=== PATIENT | female | born 1975 | race Caucasian/White ===

== ENCOUNTER → 2016-12-31 | Outpatient (CLI) | payer BC ==
--- NOTE | 2016-12-31 12:15 | US ---
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 Alcoholic cirrhosis TECHNIQUE: Multiple sonographic images of the abdomen were obtained. FINDINGS: Liver Length: 17.5 cm Gallbladder Wall: 0.2 cm CBD: 0.4 cm Spleen: 9.2 cm Right Kidney: 10.5 x 5.7 x 5.5 cm Left Kidney: 10.8 x 5.6 x 4.6 cm Pancreas: obscured by overlying midline bowel gas Liver: Increased in size now at the upper limits of normal. There is coarsened echotexture and far fi eld attenuation. This secondarily limits assessment for focal lesion. Gallbladder: Upper limits of normal in size. There there are some dependent low level echoes suggest ing sludge. No abnormal gallbladder wall thickening, pericholecystic fluid, or shadowing calculi. Evidence for sonographic Crespo's sign: no CBD: visualized portions within normal limits, limited by overlying bowel gas Spleen: visualized portions within normal limits, limited by overlying bowel gas Right Kidney: No hydronephrosis Left Kidney: No hydronephrosis Upper IVC: Not well seen. Abd Aorta: visualized portions wnl, limited by overlying midline bowel gas IMPRESSION: 1. Hepatomegaly new from 07/11/2015. The liver is coarse in echotexture and attenuating. Correlate fo r underlying nonspecific hepatocellular disease. 2. Some gallbladder sludge. Gallbladder is also borderline hydropic probably relating to fasting stat e. Clinically correlate. No findings of cholelithiasis or ancillary findings of acute cholecystitis. 3. No abdominal ascites seen.
== END | disposition home or self-care (01) ==
LOC: RADUSWWP 09:30
PROVIDERS: ATTEND Family Medicine
DX: R16.0 Hepatomegaly, not elsewhere classified (principal); K82.8 Other specified diseases of gallbladder
CPT/HCPCS: 76700

== ENCOUNTER 2017-02-05 04:07 | Emergency (ER) | payer BC ==
[2017-02-05 04:12] VITALS: BP 126/85; PULSE 99; RESP 18; TEMP 98.3
[2017-02-05] MEDS ORDERED: PENICILLIN VK 500MG STARTER 4 TAB BTL PO STA (04:42)
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
== END 2017-02-05 04:49 | disposition short-term general hospital (02) ==
LOC: EC 04:07
DX: S01.511A Laceration without foreign body of lip, initial encounter (principal); F17.200 Nicotine dependence, unspecified, uncomplicated; W22.8XXA Striking against or struck by other objects, initial encounter; Y92.89 Other specified places as the place of occurrence of the external cause
CPT/HCPCS: 12013; 99284

== ENCOUNTER 2018-06-07 00:55 | Emergency (ER) | payer BC ==
[2018-06-07] MEDS ORDERED: SODIUM CHLORIDE 0.9% 1,000 ML with MVI, ADULT NO.4 WITH VIT K 10 ML, THIAMINE 100 MG, F... IV ONE ×4 (01:31)
[2018-06-07] MEDS ORDERED: LORazepam 2 MG/ML INJ IV STA (01:31)
[2018-06-07] MEDS ORDERED: SODIUM CHLORIDE 0.9% 1,000 ML IV ONE (01:31)
[2018-06-07 01:49] LABS: Basophils # (A) 0.1 k/uL (0-0.2); Basophils % (A) 1 %; Eosinophils # (A) 0.3 k/uL (0-0.7); Eosinophils % (A) 5 %; HCT 43.7 % (34.0-46.0); HGB 14.3 gm/dL (11.4-16.0); Lymphocytes # (A) 2.1 k/uL (1.0-4.8); Lymphocytes % (A) 36 %; MCH 31.2 pg (25.0-35.0); MCHC 32.9 g/dL (31.0-37.0); MCV 95.1 fL (80.0-100.0); Monocytes # (A) 0.4 k/uL (0-1.0); Monocytes % (A) 6 %; Neutrophils # (A) 2.9 k/uL (1.3-7.7); Neutrophils % (A) 49 %; Platelet Count 265 k/uL (150-450); RBC 4.59 m/uL (3.80-5.40); WBC 5.9 k/uL (3.8-10.6)
[2018-06-07 01:54] LABS: INR 1.1 (<1.2); Prothrombin Time 10.3 sec (9.0-12.0)
[2018-06-07 01:56] LABS: ALT 91 U/L (9-52); AST 93 U/L (14-36); Albumin 4.1 g/dL (3.5-5.0); Alkaline Phosphatase 66 U/L (38-126); Amylase 59 U/L (30-110); Anion Gap 11 mmol/L; Blood Urea Nitrogen 5 mg/dL (7-17); Calcium 9.2 mg/dL (8.4-10.2); Carbon Dioxide 27 mmol/L (22-30); Chloride 106 mmol/L (98-107); Glucose 113 mg/dL (74-99); Lipase 257 U/L (23-300); Phosphorus 4.1 mg/dL (2.5-4.5); Potassium 3.4 mmol/L (3.5-5.1); Sodium 144 mmol/L (137-145); Total Bilirubin 0.4 mg/dL (0.2-1.3); Total Protein 7.5 g/dL (6.3-8.2)
[2018-06-07] MEDS ORDERED: NICOTINE 21MG/24HR PATCH TRANSDERM STA (02:02)
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
[2018-06-07] MEDS ORDERED: ZIPRASIDONE 20 MG VIAL IM STA (02:17)
[2018-06-07 03:04] LABS: Appearance,Urine Clear (Clear); Bilirubin,Urine Negative (Negative); Blood,Urine Large (Negative); Color,Urine Colorless; Glucose,Urine (UA) Negative (Negative); Ketones,Urine Negative (Negative); Leukocyte Esterase,Urine Negative (Negative); Mucus,Urine Rare /hpf; Nitrite,Urine Negative (Negative); PH, Urine 6.5 (5.0-8.0); Protein,Urine Negative (Negative); Specific Gravity,Urine 1.002 (1.001-1.035); Squamous Epithelial Cell,Urine <1 /hpf (0-4); Urobilinogen,Urine <2.0 mg/dL (<2.0)
[2018-06-07 03:10] LABS: Amphetamine Screen,Urine Not Detected (NotDetected); Barbiturate Screen,Urine Not Detected (NotDetected); Benzodiazepines Screen,Urine Not Detected (NotDetected); Cocaine Screen,Urine Not Detected (NotDetected); Methadone Screen, Urine Not Detected (NotDetected); Opiate Screen,Urine Not Detected (NotDetected); Oxycodone Screen, Urine Not Detected (NotDetected); Phencyclidine Screen,Urine Not Detected (NotDetected); Tricyclic Antidepressant,Urine Not Detected (NotDetected); Urn Cannabinoid Scrn Not Detected (NotDetected)
[2018-06-07 07:01] VITALS: TEMP 97.9
[2018-06-07 11:50] VITALS: BP 169/100; PULSE 97; RESP 18
== END 2018-06-07 11:51 | disposition home or self-care (01) ==
LOC: EC 00:55
DX: F43.21 Adjustment disorder with depressed mood (principal); F10.129 Alcohol abuse with intoxication, unspecified; F41.9 Anxiety disorder, unspecified; F40.10 Social phobia, unspecified; F17.200 Nicotine dependence, unspecified, uncomplicated; Z53.8 Procedure and treatment not carried out for other reasons
CPT/HCPCS: 82075; 36415; 80053; 82150; 83690; 83735; 84100; 85025; 85610; 81001; 81025; 80306; 99285; 96374; 96361; 96372; S4990; J2060; J3486

== ENCOUNTER 2018-07-12 22:11 | Observation (INO) | payer BC ==
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
[2018-07-13] MEDS ORDERED: NICOTINE 14MG/24HR PATCH TRANSDERM STA (00:27)
[2018-07-13] MEDS ORDERED: LORazepam 1 MG TAB PO STA (00:27)
[2018-07-13] MEDS ORDERED: NALOXONE 0.4 MG/ML 1 ML VIAL IV PRN (00:28)
[2018-07-13] MEDS ORDERED: ZIPRASIDONE 20 MG VIAL IM STA (02:55)
[2018-07-13 03:41] LABS: Amphetamine Screen,Urine Not Detected (NotDetected); Barbiturate Screen,Urine Not Detected (NotDetected); Benzodiazepines Screen,Urine Not Detected (NotDetected); Cocaine Screen,Urine Not Detected (NotDetected); Methadone Screen, Urine Not Detected (NotDetected); Opiate Screen,Urine Not Detected (NotDetected); Oxycodone Screen, Urine Not Detected (NotDetected); Phencyclidine Screen,Urine Not Detected (NotDetected); Tricyclic Antidepressant,Urine Not Detected (NotDetected); Urn Cannabinoid Scrn Not Detected (NotDetected)
[2018-07-13] MEDS ORDERED: LORazepam 2 MG/ML INJ IV PRN ×3 (04:05)
[2018-07-13] MEDS ORDERED: THIAMINE 100 MG/ML 2 ML VIAL IM STA (04:05)
[2018-07-13 12:24] VITALS: BMI 33.5
[2018-07-13] MEDS ORDERED: buPROPion XL 150 MG TAB.ER.24H PO SCH (15:30)
[2018-07-13] MEDS ORDERED: NALTREXONE HCL 50 MG TAB PO SCH (15:30)
[2018-07-13] MEDS ORDERED: OLANZapine 5 MG TAB PO SCH (15:30)
[2018-07-13 15:51] VITALS: BP 163/97; PULSE 87; RESP 16; TEMP 97.9
[2018-07-13] MEDS ORDERED: THIAMINE 100 MG TAB PO SCH (17:00)
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
== END 2018-07-13 20:03 | disposition home or self-care (01) ==
LOC: EC 22:11 → 4SSUR 07-13 00:24
PROVIDERS: ADMIT Hospitalist; ATTEND Hospitalist
DX: G93.41 Metabolic encephalopathy (principal); F10.129 Alcohol abuse with intoxication, unspecified; F41.9 Anxiety disorder, unspecified; F32.9 Major depressive disorder, single episode, unspecified; Z68.33 Body mass index [BMI] 33.0-33.9, adult; E66.9 Obesity, unspecified; F17.210 Nicotine dependence, cigarettes, uncomplicated; Z82.49 Family history of ischemic heart disease and other diseases of the circulatory system; Z79.899 Other long term (current) drug therapy; Y90.8 Blood alcohol level of 240 mg/100 ml or more
CPT/HCPCS: 99285; 96372 ×2; 82075; 80306; G0378; S4990; J3486

== ENCOUNTER → 2018-10-05 | Outpatient (CLI) | payer BC ==
--- NOTE | 2018-10-05 11:56 | US ---
EXAMINATION TYPE: US liver DATE OF EXAM: 10/05/2018 COMPARISON: CT from 2012. Most recent ultrasound December 31, 2016 CLINICAL HISTORY: F10.10 alcohol abuse. EXAM MEASUREMENTS: Liver Length: 12.6 cm Gallbladder Wall: 0.2 cm CBD: 0.4 cm Right Kidney: 10.3 x 4.9 x 5.2 cm Pancreas: visualized portions wnl Liver: wnl Gallbladder: No stones seen Evidence for sonographic Crespo's sign: No CBD: wnl Right Kidney: No hydronephrosis or masses seen IMPRESSION: Liver is more homogeneous on current study versus prior ultrasound study without evidence of suspicious intrahepatic mass or intrahepatic ductal dilatation. Correlate clinically and with arturo er lab values as I suspect interval improvement.
== END | disposition home or self-care (01) ==
LOC: RADUSWWP 09:25
PROVIDERS: ATTEND Family Medicine
DX: F10.10 Alcohol abuse, uncomplicated (principal)
CPT/HCPCS: 76705

== ENCOUNTER 2018-12-28 18:01 | Emergency (ER) | payer BC ==
[2018-12-28 18:20] VITALS: TEMP 97.6
[2018-12-28] MEDS ORDERED: SODIUM CHLORIDE 0.9% 1,000 ML IV STA (18:46)
[2018-12-28] MEDS ORDERED: LORazepam 2 MG/ML INJ IV STA (18:46)
[2018-12-28] MEDS ORDERED: PANTOPRAZOLE 40 MG/10 ML VIAL IVP STA (18:46)
[2018-12-28] MEDS ORDERED: ONDANSETRON 4 MG/2 ML VIAL IVP STA (18:46)
--- NOTE | 2018-12-28 18:49 | ED ---
Alcohol HPI - General Chief Complaint: Alcohol Stated Complaint: ETOH Time Seen by Provider: 12/28/18 18:27 Source: EMS, RN notes reviewed, old records reviewed Mode of arrival: EMS Limitations: no limitations - History of Present Illness Initial Comments: Patient is a 43-year-old female who presents MRSA department today with multiple complaints. Patient apparently recently was discharged from sober rehab facility August. After finding out that her mother has breast cancer on Thursday she used started to drink heavily again. She complains today of right sided abdominal pain and left lower abdominal pain. She is also concerned that she may have bacterial vaginosis after her has been traveling for work. She is concerned he may be unfaithful to her. Patient presents the emergency department quite anxious. She has drank a significant amount today. - Related Data Home Medications Medication Instructions Recorded Confirmed OLANZapine [ZyPREXA] 5 mg PO DAILY 07/12/18 12/28/18 buPROPion XL [Wellbutrin XL] 150 mg PO DAILY 07/12/18 12/28/18 Multivitamins, Thera [Multivitamin 1 tab PO DAILY 12/28/18 12/28/18 (formulary)] Thiamine [Vitamin B-1] 50 mg PO DAILY 12/28/18 12/28/18 Previous Rx's Medication Instructions Recorded metroNIDAZOLE [Flagyl] 500 mg PO TID #21 tab 12/28/18 Allergies Allergy/AdvReac Type Severity Reaction Status Date / Time No Known Allergies Allergy Verified 12/28/18 18:15 Review of Systems ROS Statement: Those systems with pertinent positive or pertinent negative responses have been documented in the HPI. ROS Other: All systems not noted in ROS Statement are negative. Past Medical History Past Medical History: Heart Failure, Fibromyalgia, Rheumatoid Arthritis (RA) Additional Past Medical History / Comment(s): endometriosis History of Any Multi-Drug Resistant Organisms: None Reported Past Surgical History: Section, Hernia Repair, Tubal Ligation Additional Past Surgical History / Comment(s): laproscopy Past Psychological History: Anxiety, Depression Smoking Status: Current every day smoker Past Alcohol Use History: Abuse, Daily Past Drug Use History: None Reported - Past Family History Mother Family Medical History: Hypertension Father Family Medical History: COPD General Exam - General Exam Comments Initial Comments: This is a 43-year-old female. Alert and oriented. Patient appears intoxicated. Limitations: no limitations General appearance: alert, in no apparent distress Head exam: Present: atraumatic, normocephalic, normal inspection Eye exam: Present: normal appearance, PERRL, EOMI. Absent: scleral icterus, conjunctival injection, periorbital swelling ENT exam: Present: normal exam, mucous membranes moist Neck exam: Present: normal inspection. Absent: tenderness, meningismus, lymphadenopathy Respiratory exam: Present: normal lung sounds bilaterally Cardiovascular Exam: Present: regular rate, normal rhythm, normal heart sounds. Absent: systolic murmur, diastolic murmur, rubs, gallop, clicks GI/Abdominal exam: Present: soft, normal bowel sounds. Absent: distended, tenderness, guarding, rebound, rigid Extremities exam: Present: normal inspection, full ROM, normal capillary refill. Absent: tenderness, pedal edema, joint swelling, calf tenderness Back exam: Present: normal inspection Neurological exam: Present: alert, oriented X3, CN II-XII intact Psychiatric exam: Present: normal affect, normal mood Skin exam: Present: warm, dry, intact, normal color. Absent: rash Course Vital Signs 12/28/18 12/28/18 18:14 22:24 Temperature 97.6 F Pulse Rate 82 78 Respiratory 18 16 Rate Blood Pressure 122/77 98/57 O2 Sat by Pulse 93 L 95 Oximetry Medical Decision Making - Lab Data Result diagrams: 12/28/18 19:21 12/28/18 19:21 Lab Results 12/28/18 12/28/18 12/28/18 Range/Units 19:21 19:21 19:21 WBC 9.1 (3.8-10.6) k/uL RBC 4.97 (3.80-5.40) m/uL Hgb 15.1 (11.4-16.0) gm/dL Hct 45.0 (34.0-46.0) % MCV 90.4 (80.0-100.0) fL MCH 30.4 (25.0-35.0) pg MCHC 33.7 (31.0-37.0) g/dL RDW 15.1 (11.5-15.5) % Plt Count 240 (150-450) k/uL Neutrophils % 61 % Lymphocytes % 31 % Monocytes % 3 % Eosinophils % 2 % Basophils % 1 % Neutrophils # 5.5 (1.3-7.7) k/uL Lymphocytes # 2.8 (1.0-4.8) k/uL Monocytes # 0.3 (0-1.0) k/uL Eosinophils # 0.2 (0-0.7) k/uL Basophils # 0.1 (0-0.2) k/uL PT 9.6 (9.0-12.0) sec INR 0.9 (<1.2) APTT 24.2 (22.0-30.0) sec Sodium 148 H (137-145) mmol/L Potassium 4.1 (3.5-5.1) mmol/L Chloride 113 H (98-107) mmol/L Carbon Dioxide 23 (22-30) mmol/L Anion Gap 12 mmol/L BUN 12 (7-17) mg/dL Creatinine 0.76 (0.52-1.04) mg/dL Est GFR (CKD-EPI)AfAm >90 (>60 ml/min/1.73 sqM) Est GFR (CKD-EPI)NonAf >90 (>60 ml/min/1.73 sqM) Glucose 98 (74-99) mg/dL Calcium 9.7 (8.4-10.2) mg/dL Total Bilirubin 0.4 (0.2-1.3) mg/dL AST 26 (14-36) U/L ALT 36 (9-52) U/L Alkaline Phosphatase 68 (38-126) U/L Total Protein 8.1 (6.3-8.2) g/dL Albumin 4.5 (3.5-5.0) g/dL Amylase 62 (30-110) U/L Lipase 102 (23-300) U/L Serum Alcohol 230 H* mg/dL Disposition Clinical Impression: Alcohol intoxication, Concern about STD in female without diagnosis, Abdominal pain Disposition: HOME SELF-CARE Condition: Good Instructions (If sedation given, give patient instructions): Bacterial Vaginosis (ED), Alcohol Intoxication (ED) Additional Instructions: Patient has a follow-up with primary care doctor. Return to emergency department if any alarming signs or symptoms occur. Prescriptions: metroNIDAZOLE [Flagyl] 500 mg PO TID #21 tab Is patient prescribed a controlled substance at d/c from ED?: No Referrals: Fer Lubin MD [Primary Care Provider] - 1-2 days Keily Up MD [STAFF PHYSICIAN] - 1-2 days Time of Disposition: 22:29
[2018-12-28 19:38] LABS: Basophils # (A) 0.1 k/uL (0-0.2); Basophils % (A) 1 %; Eosinophils # (A) 0.2 k/uL (0-0.7); Eosinophils % (A) 2 %; HGB 15.1 gm/dL (11.4-16.0); Lymphocytes # (A) 2.8 k/uL (1.0-4.8); Lymphocytes % (A) 31 %; MCH 30.4 pg (25.0-35.0); MCHC 33.7 g/dL (31.0-37.0); MCV 90.4 fL (80.0-100.0); Mean Platelet Volume 7.9; Monocytes # (A) 0.3 k/uL (0-1.0); Monocytes % (A) 3 %; Neutrophils # (A) 5.5 k/uL (1.3-7.7); Neutrophils % (A) 61 %; Platelet Count 240 k/uL (150-450); RBC 4.97 m/uL (3.80-5.40); RDW 15.1 % (11.5-15.5); WBC 9.1 k/uL (3.8-10.6)
[2018-12-28 19:46] LABS: INR 0.9 (<1.2); Partial Thromboplastin Time 24.2 sec (22.0-30.0); Prothrombin Time 9.6 sec (9.0-12.0)
[2018-12-28 19:47] LABS: ALT 36 U/L (9-52); AST 26 U/L (14-36); Albumin 4.5 g/dL (3.5-5.0); Alkaline Phosphatase 68 U/L (38-126); Amylase 62 U/L (30-110); Anion Gap 12 mmol/L; Blood Urea Nitrogen 12 mg/dL (7-17); Calcium 9.7 mg/dL (8.4-10.2); Carbon Dioxide 23 mmol/L (22-30); Chloride 113 mmol/L (98-107); Glucose 98 mg/dL (74-99); Lipase 102 U/L (23-300); Potassium 4.1 mmol/L (3.5-5.1); Sodium 148 mmol/L (137-145); Total Bilirubin 0.4 mg/dL (0.2-1.3); Total Protein 8.1 g/dL (6.3-8.2)
[2018-12-28] MEDS ORDERED: NICOTINE 21MG/24HR PATCH TRANSDERM STA (19:53)
[2018-12-28 19:57] LABS: Alcohol 230 mg/dL
--- NOTE | 2018-12-28 20:42 | XR ---
EXAMINATION: XR chest 2V DATE AND TIME: 12/28/2018 8:03 PM CLINICAL INDICATION: PHH; abdominal pain TECHNIQUE: Departmental protocol COMPARISON: None FINDINGS: The lungs are clear. The pleural spaces are negative. The cardiac silhouette is borderline enlarged; remainder of the mediastinal silhouette is unremarkabl e. The skeletal structures are negative for acute findings. Visualized soft tissues are unremarkable. IMPRESSION: NO ACUTE PROCESS.
--- NOTE | 2018-12-28 20:46 | XR ---
EXAMINATION TYPE: XR KUB 2 views DATE OF EXAM: 12/28/2018 COMPARISON: NONE HISTORY: Abdominal pain for 6 weeks TECHNIQUE: Upright views FINDINGS: No pneumoperitoneum or pneumatosis. The bowel gas pattern is normal. No acute skeletal or soft tissue findings. IMPRESSION: NEGATIVE EXAMINATION.
[2018-12-28] MEDS ORDERED: cefTRIAXone 250 MG VIAL IM STA (22:06)
[2018-12-28] MEDS ORDERED: AZITHROMYCIN 500 MG TAB PO STA (22:06)
[2018-12-28 22:25] VITALS: BP 98/57; PULSE 78; RESP 16
== END 2018-12-28 22:58 | disposition home or self-care (01) ==
LOC: EC 18:01
DX: F10.129 Alcohol abuse with intoxication, unspecified (principal); R10.32 Left lower quadrant pain; Z71.1 Person with feared health complaint in whom no diagnosis is made; F32.9 Major depressive disorder, single episode, unspecified; F41.9 Anxiety disorder, unspecified; F17.200 Nicotine dependence, unspecified, uncomplicated; Z79.899 Other long term (current) drug therapy
CPT/HCPCS: 36415; 80053; 82150; 83690; 85025; 85610; 85730; 80320; 71046; 74018; 99284; 96374; 96375 ×2; 96361; 96372; S4990; J2060; J2405; J0696; C9113

== ENCOUNTER 2024-08-26 13:49 | Inpatient (IN) | payer BC, OTHER ==
--- NOTE | 2024-08-26 14:08 | ED ---
General Adult HPI - General Source: patient, RN notes reviewed, old records reviewed Limitations: no limitations <Messi Gama - Last Filed: 08/26/24 15:06> <Serg Diaz - Last Filed: 08/26/24 16:40> - General Stated complaint: Cough Time Seen by Provider: 08/26/24 13:52 - History of Present Illness Initial comments: Patient is a 49-year-old female present to the emergency department with cough and difficulty breathing. Symptoms have been present for around a month. Patient is currently at rehab for alcohol use and has been there around 10 days. Patient states she has noticed some wheezing. Patient is a smoker. Patient has no known history of lung disease. Patient states cough is dry. No fever. (Messi Gama) - Related Data Home Medications Medication Instructions Recorded Confirmed OLANZapine [ZyPREXA] 5 mg PO DAILY 07/12/18 12/28/18 buPROPion XL [Wellbutrin XL] 150 mg PO DAILY 07/12/18 12/28/18 Multivitamins, Thera [Multivitamin 1 tab PO DAILY 12/28/18 12/28/18 (formulary)] Thiamine [Vitamin B-1] 50 mg PO DAILY 12/28/18 12/28/18 Previous Rx's Medication Instructions Recorded metroNIDAZOLE [Flagyl] 500 mg PO TID #21 tab 12/28/18 Allergies Allergy/AdvReac Type Severity Reaction Status Date / Time latex Allergy Rash/Hives Verified 08/26/24 14:11 Review of Systems ROS Other: All systems not noted in ROS Statement are negative. Constitutional: Denies: fever Eyes: Denies: eye pain ENT: Denies: ear pain Respiratory: Reports: as per HPI, cough, dyspnea Cardiovascular: Reports: chest pain (Patient has some discomfort of her chest that she associates with the cough) Gastrointestinal: Denies: abdominal pain Musculoskeletal: Denies: back pain Neurological: Denies: headache <Messi Gama - Last Filed: 08/26/24 15:06> ROS Other: All systems not noted in ROS Statement are negative. <Serg Diaz - Last Filed: 08/26/24 16:40> ROS Statement: Those systems with pertinent positive or pertinent negative responses have been documented in the HPI. Past Medical History Past Medical History: Heart Failure, Fibromyalgia, Rheumatoid Arthritis (RA) Additional Past Medical History / Comment(s): endometriosis History of Any Multi-Drug Resistant Organisms: None Reported Past Surgical History: Section, Hernia Repair, Tubal Ligation Additional Past Surgical History / Comment(s): laproscopy Past Psychological History: Anxiety, Depression Past Alcohol Use History: Abuse, Daily Past Drug Use History: None Reported - Past Family History Mother Family Medical History: Hypertension Father Family Medical History: COPD <Messi Gama Last Filed: 08/26/24 15:06> General Exam Limitations: no limitations General appearance: alert, in no apparent distress Head exam: Present: normocephalic Eye exam: Present: normal appearance Neck exam: Present: normal inspection Respiratory exam: Present: wheezes (Mild expiratory wheeze) Cardiovascular Exam: Present: regular rate, normal rhythm GI/Abdominal exam: Present: soft. Absent: tenderness Extremities exam: Present: normal inspection. Absent: pedal edema, calf tenderness Neurological exam: Present: alert Psychiatric exam: Present: normal affect, normal mood Skin exam: Present: normal color <Messi Gama Last Filed: 08/26/24 15:06> Course Vital Signs 08/26/24 08/26/24 08/26/24 14:05 16:17 16:25 Temperature 98.8 F Pulse Rate 70 72 75 Respiratory 20 18 18 Rate Blood Pressure 141/91 O2 Sat by Pulse 98 Oximetry EKG Findings - EKG Results: EKG: interpreted by ERMD, sinus rhythm, normal axis, normal QRS, normal ST/T <Messi Gama - Last Filed: 08/26/24 15:06> Medical Decision Making - Lab Data Result diagrams: 08/26/24 14:15 <Messi Gama - Last Filed: 08/26/24 15:06> - Lab Data Result diagrams: 08/26/24 14:15 08/26/24 14:15 <Serg Diaz - Last Filed: 08/26/24 16:40> - Medical Decision Making Was pt. sent in by a medical professional or institution (, PA, [employer]ER [employer]OP SUPERVISOR, urgent care, hospital, or half-way...) When possible be specific @ -Patient was sent from [facility] Did you speak to anyone other than the patient for history (EMS, parent, family, police, friend...)? What history was obtained from this source @ -[No] Did you review nursing and triage notes (agree or disagree)? Why? @ -[I reviewed and agree with nursing and triage notes] Were old charts reviewed (outside hosp., previous admission, EMS record, old EKG, old radiological studies, urgent care reports/EKG's, half-way records)? Report findings @ -Chart reviewed from [facility]. Also reviewed old x-ray that does not appear similar to current x-ray Differential Diagnosis (chest pain, altered mental status, abdominal pain women, abdominal pain men, vaginal bleeding, weakness, fever, dyspnea, syncope, headache, dizziness, GI bleed, back pain, seizure, CVA, palpatations, mental he alth, musculoskeletal)? @ -Differential Dyspnea: Coronary syndrome, arrhythmia, tamponade, asthma, COPD, pulmonary embolism, pneumonia, pneumothorax, pulmonary effusion, anaphylaxis, diabetic ketoacidosis, flailed chest, pulmonary contusion, diaphragmatic rupture, anemia, neuromuscular, this is not meant to be an all-inclusive list. EKG interpreted by me (3pts min.). @ -[As above] X-rays interpreted by me (1pt min.). @ -Chest x-ray shows opacity left suprahilar region. Also diffuse nodular densities CT interpreted by me (1pt min.). @ -[None done] U/S interpreted by me (1pt. min.). @ -[None done] What testing was considered but not performed or refused? (CT, X-rays, U/S, labs)? Why? @ -[None] What meds were considered but not given or refused? Why? @ -[None] Did you discuss the management of the patient with other professionals (professionals i.e. , PA, [employer] SUPERVISOR, lab, RT, psych nurse, social secretary, criminal defense lawyer, teacher, security patrol officer, disease case manager)? Give summary @ -[No] Was smoking cessation discussed for >3mins.? @ -[No] Was critical care preformed (if so, how long)? @ -[No] Were there social determinants of health that impacted care today? How? (Homelessness, low income, unemployed, alcoholism, drug addiction, transportation, low edu. Level, literacy, decrease access to med. care, [facility], rehab)? @ -[No] Was there de-escalation of care discussed even if they declined (Discuss DNR or withdrawal of care, Hospice)? DNR status @ -[No] What co-morbidities impacted this encounter? (DM, HTN, Smoking, COPD, CAD, Cancer, CVA, ARF, Chemo, Hep., AIDS, mental health diagnosis, sleep apnea, morbid obesity)? @ -[None] Was patient admitted / discharged? Hospital course, mention meds given and route, prescriptions, significant lab abnormalities, going to OR and other pertinent info. @ -Patient presents with cough and shortness of breath for several weeks. Patient has some chest discomfort as well. Chest x-ray shows nodular changes and left suprahilar opacity. Case endorsed to Dr. Diaz for final disposition (Messi Gama) Patient admitted with consults to both pulmonology and oncology, multifocal nodular densities throughout both lungs as well as consolidated pneumonia. Patient started on antibiotics admitted to Dr. Celaya who is aware. (Serg Diaz) - Lab Data Lab Results 08/26/24 08/26/24 08/26/24 Range/Units 14:15 14:15 14:15 WBC 7.2 (3.8-10.6) k/uL RBC 4.06 (3.80-5.40) m/uL Hgb 12.7 (11.4-16.0) gm/dL Hct 38.2 (34.0-46.0) % MCV 94.0 (80.0-100.0) fL MCH 31.4 (25.0-35.0) pg MCHC 33.4 (31.0-37.0) g/dL RDW 14.0 (11.5-15.5) % Plt Count 198 (150-450) k/uL MPV 8.3 Neutrophils % 51 % Lymphocytes % 35 % Monocytes % 8 % Eosinophils % 3 % Basophils % 1 % Neutrophils # 3.7 (1.3-7.7) k/uL Lymphocytes # 2.5 (1.0-4.8) k/uL Monocytes # 0.6 (0-1.0) k/uL Eosinophils # 0.2 (0-0.7) k/uL Basophils # 0.1 (0-0.2) k/uL PT 9.8 L (10.0-12.5) sec INR 0.9 (<1.2) APTT 24.9 (22.0-30.0) sec D-Dimer 3.17 H (<0.60) mg/L FEU Sodium 139 (137-145) mmol/L Potassium 4.6 (3.5-5.1) mmol/L Chloride 107 (98-107) mmol/L Carbon Dioxide 23 (22-30) mmol/L Anion Gap 9 mmol/L BUN 12 (7-17) mg/dL Creatinine 0.74 (0.52-1.04) mg/dL Est GFR (CKD-EPI)AfAm >90 (>60 ml/min/1.73 sqM) Est GFR (CKD-EPI)NonAf >90 (>60 ml/min/1.73 sqM) Glucose 94 (74-99) mg/dL Plasma Lactic Acid Mauricio (0.7-2.0) mmol/L Calcium 9.2 (8.4-10.2) mg/dL Magnesium 2.1 (1.6-2.3) mg/dL Total Bilirubin 0.6 (0.2-1.3) mg/dL AST 24 (14-36) U/L ALT 19 (4-34) U/L Alkaline Phosphatase 45 (38-126) U/L Troponin I (0.000-0.034) ng/mL Total Protein 7.4 (6.3-8.2) g/dL Albumin 4.2 (3.5-5.0) g/dL Influenza Type A (PCR) (Not Detectd) Influenza Type B (PCR) (Not Detectd) RSV (PCR) (Not Detectd) SARS-CoV-2 (PCR) (Not Detectd) 08/26/24 08/26/24 08/26/24 Range/Units 14:15 14:15 14:15 WBC (3.8-10.6) k/uL RBC (3.80-5.40) m/uL Hgb (11.4-16.0) gm/dL Hct (34.0-46.0) % MCV (80.0-100.0) fL MCH (25.0-35.0) pg MCHC (31.0-37.0) g/dL RDW (11.5-15.5) % Plt Count (150-450) k/uL MPV Neutrophils % % Lymphocytes % % Monocytes % % Eosinophils % % Basophils % % Neutrophils # (1.3-7.7) k/uL Lymphocytes # (1.0-4.8) k/uL Monocytes # (0-1.0) k/uL Eosinophils # (0-0.7) k/uL Basophils # (0-0.2) k/uL PT (10.0-12.5) sec INR (<1.2) APTT (22.0-30.0) sec D-Dimer (<0.60) mg/L FEU Sodium (137-145) mmol/L Potassium (3.5-5.1) mmol/L Chloride (98-107) mmol/L Carbon Dioxide (22-30) mmol/L Anion Gap mmol/L BUN (7-17) mg/dL Creatinine (0.52-1.04) mg/dL Est GFR (CKD-EPI)AfAm (>60 ml/min/1.73 sqM) Est GFR (CKD-EPI)NonAf (>60 ml/min/1.73 sqM) Glucose (74-99) mg/dL Plasma Lactic Acid Mauricio 1.0 (0.7-2.0) mmol/L Calcium (8.4-10.2) mg/dL Magnesium (1.6-2.3) mg/dL Total Bilirubin (0.2-1.3) mg/dL AST (14-36) U/L ALT (4-34) U/L Alkaline Phosphatase (38-126) U/L Troponin I <0.012 (0.000-0.034) ng/mL Total Protein (6.3-8.2) g/dL Albumin (3.5-5.0) g/dL Influenza Type A (PCR) Not Detected (Not Detectd) Influenza Type B (PCR) Not Detected (Not Detectd) RSV (PCR) Not Detected (Not Detectd) SARS-CoV-2 (PCR) Not Detected (Not Detectd) Disposition <Messi Gama - Last Filed: 08/26/24 15:06> Is patient prescribed a controlled substance at d/c from ED?: No Time of Disposition: 16:40 <Serg Diaz - Last Filed: 08/26/24 16:40> Clinical Impression: Pneumonia, Pulmonary nodules Disposition: ADMITTED IP TO THIS HOSP Condition: Stable Referrals: Ruddy Real MD [Primary Care Provider] - 1-2 days
[2024-08-26 14:41] LABS: Basophils # (A) 0.1 k/uL (0-0.2); Basophils % (A) 1 %; Eosinophils # (A) 0.2 k/uL (0-0.7); Eosinophils % (A) 3 %; HCT 38.2 % (34.0-46.0); HGB 12.7 gm/dL (11.4-16.0); Lymphocytes # (A) 2.5 k/uL (1.0-4.8); Lymphocytes % (A) 35 %; MCH 31.4 pg (25.0-35.0); MCHC 33.4 g/dL (31.0-37.0); Mean Platelet Volume 8.3; Monocytes # (A) 0.6 k/uL (0-1.0); Monocytes % (A) 8 %; Neutrophils # (A) 3.7 k/uL (1.3-7.7); Neutrophils % (A) 51 %; Platelet Count 198 k/uL (150-450); RBC 4.06 m/uL (3.80-5.40); WBC 7.2 k/uL (3.8-10.6)
--- NOTE | 2024-08-26 14:52 | XR ---
EXAMINATION TYPE: XR chest 2V DATE OF EXAM: 08/26/2024 2:43 PM COMPARISON: Chest radiographs from 12/28/2018 TECHNIQUE: XR chest 2V Frontal and lateral views of the chest. CLINICAL INDICATION:Female, 49 years old with history of difficulty breathing; FINDINGS: Lungs/Pleura: Left superior perihilar consolidative opacity is new from prior exam. New nodular opaci ties throughout the lungs. Pulmonary vascularity: Unremarkable. Heart/mediastinum: Cardiomediastinal silhouette is unremarkable. Musculoskeletal: No acute osseous pathology. IMPRESSION: New left superior perihilar consolidative opacity from prior radiograph with additional new nodular o pacities throughout the lungs. Findings may represent infectious process with inflammatory nodules ve rsus malignancy with pulmonary metastasis. Further evaluation with CT chest with IV contrast is recom mended. [facility], , 08/26/2024 2:49 PM
[2024-08-26 14:55] LABS: INR 0.9 (<1.2); Partial Thromboplastin Time 24.9 sec (22.0-30.0); Prothrombin Time 9.8 sec (10.0-12.5)
[2024-08-26 15:07] LABS: ALT 19 U/L (4-34); AST 24 U/L (14-36); African American GFR (CKD) >90 (>60 ml/min/1.73 sqM); Albumin 4.2 g/dL (3.5-5.0); Alkaline Phosphatase 45 U/L (38-126); Anion Gap 9 mmol/L; Blood Urea Nitrogen 12 mg/dL (7-17); Calcium 9.2 mg/dL (8.4-10.2); Carbon Dioxide 23 mmol/L (22-30); Chloride 107 mmol/L (98-107); Glucose 94 mg/dL (74-99); Magnesium 2.1 mg/dL (1.6-2.3); Non-African American GFR(CKD) >90 (>60 ml/min/1.73 sqM); Potassium 4.6 mmol/L (3.5-5.1); Sodium 139 mmol/L (137-145); Total Bilirubin 0.6 mg/dL (0.2-1.3); Total Protein 7.4 g/dL (6.3-8.2)
[2024-08-26 15:18] LABS: Influenza A Not Detected (Not Detectd); Influenza B Not Detected (Not Detectd); RSV Not Detected (Not Detectd)
--- NOTE | 2024-08-26 16:01 | CT ---
EXAMINATION TYPE: CT angio chest DATE OF EXAM: 08/26/2024 3:39 PM COMPARISON: Chest radiograph from same day. CLINICAL INDICATION: Female, 49 years old with history of Dyspnea; cough, chest pain, SOB TECHNIQUE/CONTRAST: CTA scan of the thorax is performed with IV Contrast, patient injected with 100 mL of Isovue 370, MIP images are created and reviewed these are created on a separate workstation.. CT DLP: 272.7 mGycm, Automated exposure control for dose reduction was used. FINDINGS: Lungs/Pleura: There is greater than 50 nodules throughout the lungs with left upper lung masslike con solidation measuring 58 x 32 mm. Some of the pulmonary nodules have central cavitation.a including se raulito 401 image 76 measuring 7 mm. Mild pulmonary vascular congestion noted. No evidence of focal cons olidation, pleural effusion or pneumothorax. Airway: Large airways are patent. Heart: Heart is within normal limits for size. Vasculature: There is no evidence for a filling defect within the pulmonary vasculature to suggest ac bill pulmonary embolism. The pulmonary artery is of normal size. Mediastinum: Enlarged lymph nodes are seen in the mediastinum including subcarinal measuring up to 17 mm, right pulmonary hilum measuring up to 12 mm, left pulmonary hilum measuring up to 4 mm. Musculoskeletal: No acute osseous abnormalities Soft Tissues/lymph nodes: Unremarkable. Lower neck: No significant findings. Upper Abdomen: Left adrenal nodule measuring 10 mm 33 Hounsfield units. No IMPRESSION: 1. No evidence of pulmonary embolism. 2. Left upper lung consolidation with scattered pulmonary nodules (greater than 50) and mediastinal l ymphadenopathy concerning for malignancy with diffuse metastatic disease. Pulmonary vascular congesti on suggestive of lymphatic carcinomatosis. 3. Indeterminate left adrenal nodule concerning for malignancy. [facility], , 08/26/2024 3:59 PM
[2024-08-26] MEDS: IPRATROPIUM-ALBUTEROL 3 ML NEB INHALATION STA (16:17)
[2024-08-26] MEDS: LORazepam 2 MG/ML INJ IV STA (16:32)
[2024-08-26] MEDS: NICOTINE 21MG/24HR PATCH TRANSDERM STA (16:33)
[2024-08-26] MEDS ORDERED: NALOXONE 0.4 MG/ML 1 ML VIAL IVP PRN (16:33)
[2024-08-26] MEDS ORDERED: IPRATROPIUM-ALBUTEROL 3 ML NEB INHALATION PRN (16:33)
[2024-08-26] MEDS: AZITHROMYCIN 500 MG in SODIUM CHLORIDE 0.9% 250 ML IVPB STA (17:12)
[2024-08-26] MEDS: cefTRIAXone IN SWFI 1,000 MG/10 ML SYRINGE IVP STA (17:12)
[2024-08-26] MEDS ORDERED: NON FORMULARY DRUG (Calcium Phos/D3/Magnesium/Zinc [Calcium-Mag-Zinc-Vitamin D3] 1 EACH Ta PO PRN (19:52)
[2024-08-26] MEDS ORDERED: ACETAMINOPHEN TAB 325 MG TAB PO PRN (19:52)
[2024-08-26] MEDS ORDERED: ONDANSETRON 4 MG TAB PO PRN (19:52)
[2024-08-26] MEDS ORDERED: HYOSCYAMINE SULFATE 0.125 MG TAB PO PRN (19:52)
--- NOTE | 2024-08-26 20:10 | P.HPIM ---
History of Present Illness H&P Date: 08/26/24 Chief Complaint: Cough This is a 49-year-old patient who follows with Dr. Ruddy Real. Chronic stable medical conditions include fibromyalgia, rheumatoid arthritis, endometriosis, anxiety depression, hypertension, GERD. Patient is currently at [facility] for last 10 days for alcohol rehab. About 3 weeks patient been having creasing cough. Some wheezing. Some pleuritic chest pain with coughing. Denies any fever or chills. Appetite is good. Has fair bowel movements. Patient also does vaping. Also notes some cigarettes. Prior to going to [facility] patient was close to drinking less than a gallon of vodka. Patient been getting dizzy and sometimes passing out at home. Review of systems: GEN.: A bit tired EYES: None HEENT: None NECK: None RESPIRATORY: As above CARDIOVASCULAR: None GASTROINTESTINAL: None GENITOURINARY: None MUSCULOSKELETAL: None LYMPHATICS: None HEMATOLOGICAL: None PSYCHIATRY: Bit anxious NEUROLOGICAL: None Social history: Patient is . Lives with her mother. Was drinking close to a gallon of vodka prior to getting admitted to rehab. Does vaping also smoke a few cigarettes. Physical examination: VITAL SIGNS: 98.8, 70, 20, 140/90, 96% room air GENERAL: BMI 24.9, reclining bed awake slightly anxious. EYES: Pupils equal. Conjunctiva alyce l. HEENT: External appearance of nose and ears normal, oral cavity grossly normal. NECK: JVD not raised; masses not palpable. HEART: First and second heart sounds are normal; no edema. LUNGS: Respiratory rate increased l; diminished breath sounds, wheezing. ABDOMEN: Soft, nontender, liver spleen not palpable, no masses palpable. PSYCH: Alert and oriented x3; mood and affect alyce l. MUSCULOSKELETAL:No Clubbing/cyanosis;muscles-grossly intact NEUROLOGICAL: Cranial nerves grossly intact; no facial asymmetry, power and sensation grossly intact. LYMPHATICS: No lymph nodes palpable in the axilla and neck INVESTIGATIONS, reviewed in the clinical context: August 26, 2024: White count 7.2 hemoglobin 12.7 platelets 198 sodium 139 potassium 4.6 creatinine 0.74 Influenza type a type B RSV COVID-19: Not detected EKG tracing personally reviewed by me-normal sinus rhythm Chest x-ray film personally reviewed by me-left upper lobe opacity. Some other nodular opacities scattered. CT angio chest: More than 50 nodules throughout the lungs. Left upper lung masslike consolidation. 58 x 32 mm. Some nodules of central cavitation. Lymphadenopathy. Negative for PE Assessment plan: -Left upper lobe consolidation and multiple lung nodules. Strongly suspicious for metastatic disease. In a smoker. Consult pulmonary, the view to bronchoscopy -Suspect pneumonia suggest gram-negative organism given the clinical presentation of cough wheezing. Sputum production Ceftriaxone. Zithromax -Alcohol use disorder Patient was drinking close to a gallon prior to getting admitted to [facility] where she is currently under rehab. Last drink was about 2 weeks ago -Essential hypertension Catapres. -Chronic nicotine dependence plus vaping Nicotine patch -Acute COPD exacerbation in a smoker DuoNeb. Nebulized Pulmicort -Anxiety depression Trazodone. Wellbutrin XL -Full code Care was discussed with the patient. Pulmonary consulted. Past Medical History Past Medical History: Heart Failure, Fibromyalgia, Rheumatoid Arthritis (RA) Additional Past Medical History / Comment(s): endometriosis History of Any Multi-Drug Resistant Organisms: None Reported Past Surgical History: Section, Hernia Repair, Tubal Ligation Additional Past Surgical History / Comment(s): laproscopy Past Psychological History: Anxiety, Depression Past Alcohol Use History: Abuse, Daily Past Drug Use History: None Reported - Past Family History Mother Family Medical History: Hypertension Father Family Medical History: COPD Medications and Allergies Home Medications Medication Instructions Recorded Confirmed Type Multivitamins, Thera [Multivitamin 1 tab PO DAILY 12/28/18 08/26/24 History (formulary)] Acetaminophen [Tylenol] 650 mg PO Q4H PRN MDD 2,600mg 08/26/24 08/26/24 History Albuterol Nebulized [Ventolin 2.5 mg INHALATION RT-Q4H PRN 08/26/24 08/26/24 History Nebulized] Amoxicillin 500 mg PO TID 08/26/24 08/26/24 History Calcium Phos/D3/Magnesium/Zinc 1 tab PO TID PRN 08/26/24 08/26/24 History [Riccgnf-Vny-Efqt-Vitamin D3] Chlorpheniramine Maleate 4 mg PO Q4H PRN 08/26/24 08/26/24 History [Chlor-Trimeton] Fluticasone Nasal [place] [Flonase 1 spray EA NOSTRIL DAILY 08/26/24 08/26/24 History Nasal [place]] Furosemide [Lasix] 20 mg PO DAILY 08/26/24 08/26/24 History Hyoscyamine Sulfate [Levsin] 0.125 mg PO QID PRN 08/26/24 08/26/24 History Ibuprofen [Motrin Ib] 600 mg PO Q6H PRN 08/26/24 08/26/24 History Linaclotide [Linzess] 290 mcg PO DAILY 08/26/24 08/26/24 History Loperamide HCl [Imodium A-D] 4 mg PO QID PRN MDD 16mg 08/26/24 08/26/24 History Melatonin 10 mg PO HS 08/26/24 08/26/24 History Pantoprazole [Protonix] 40 mg PO DAILY 08/26/24 08/26/24 History Potassium Chloride ER [K-Dur 10] 10 meq PO DAILY 08/26/24 08/26/24 History Sennosides/Docusate Sodium [Senna 2 tab PO DAILY PRN 08/26/24 08/26/24 History Plus 8.6-50 mg Softgel] Thiamine [Vitamin B-1] 100 mg PO DAILY 08/26/24 08/26/24 History buPROPion XL [Wellbutrin XL] 300 mg PO DAILY 08/26/24 08/26/24 History cloNIDine HCL 0.1 mg PO BID 08/26/24 08/26/24 History cloNIDine HCL [Catapres] 0.1 - 0.3 mg PO Q4H PRN 08/26/24 08/26/24 History guaiFENesin [guaiFENesin Oral 200 mg PO Q4H PRN 08/26/24 08/26/24 History Solution] ondansetron HCL [Zofran] 8 mg PO Q6H PRN 08/26/24 08/26/24 History traZODone HCL [Desyrel] 50 - 150 mg PO HS PRN 08/26/24 08/26/24 History Allergies Allergy/AdvReac Type Severity Reaction Status Date / Time latex Allergy Rash/Hives Verified 08/26/24 17:32 Physical Exam Vitals: Vital Signs Temp Pulse Resp BP Pulse Ox 08/26/24 17:00 74 18 140/90 96 08/26/24 16:25 75 18 08/26/24 16:17 72 18 08/26/24 14:05 98.8 F 70 20 141/91 98 Intake and Output 08/26/24 08/26/24 08/26/24 06:59 14:59 22:59 Other: Weight 65.771 kg Results CBC & Chem 7: 08/26/24 14:15 08/26/24 14:15 Labs: Abnormal Lab Results - Last 24 Hours (Table) 08/26/24 Range/Units 14:15 PT 9.8 L (10.0-12.5) sec D-Dimer 3.17 H (<0.60) mg/L FEU
[2024-08-26] MEDS: BUDESONIDE 1 MG/2 ML NEBU INHALATION SCH (20:24)
[2024-08-26] MEDS: IPRATROPIUM-ALBUTEROL 3 ML NEB INHALATION SCH (20:24)
[2024-08-26] MEDS: MELATONIN 5 MG TABLET PO SCH (22:30)
[2024-08-26] MEDS: cloNIDine HCL 0.1 MG TAB PO SCH (22:30)
[2024-08-26] MEDS: NICOTINE 14MG/24HR PATCH TRANSDERM SCH (22:30)
[2024-08-26] MEDS: LORazepam 0.5 MG TAB PO PRN (22:30)
[2024-08-26] MEDS: HYDROcodone/APAP 5-325MG 1 EACH TAB PO PRN (22:41)
[2024-08-27] MEDS: ENOXAPARIN 40 MG/0.4 ML SYRINGE SQ SCH (10:16)
[2024-08-27] MEDS: predniSONE 20 MG TAB PO SCH (10:17)
[2024-08-27] MEDS: PANTOPRAZOLE 40 MG TABLET PO SCH (10:17)
[2024-08-27] MEDS: AZITHROMYCIN 500 MG TAB PO SCH (10:17)
[2024-08-27] MEDS: buPROPion XL 300 MG TAB.ER.24H PO SCH (10:17)
[2024-08-27] MEDS: THIAMINE 100 MG TAB PO SCH (10:17)
[2024-08-27] MEDS: MULTIVITAMINS, THERA 1 EACH TAB PO SCH (10:17)
--- NOTE | 2024-08-27 12:33 | P.CONS ---
History of Present Illness - Reason for Consult Consult date: 08/27/24 Lung mass, multiple lung nodules - History of Present Illness This is a 49-year-old white female patient, with a complicated past medical history. The patient has a longstanding history of heavy alcohol use, rheumatoid arthritis, as well as liver cirrhosis. The patient has been in [facility] for the last 10 days. She states that for about 1 to 2 weeks prior to that she had been having some upper mid left chest pain, radiating to the shoulder, and sometimes across to the right. She had noted some intermittent wheezing, and increase in her baseline cough with expectoration. There was also some associated shortness of breath. Her symptoms were progressive during her stay at [facility], due to which she was brought into the ER. Chest x-ray showed consolidative opacity in the left upper lobe, and multiple other lung nodules, new from prior chest x-ray in 2019. CT angiogram was negative for pulmonary embolus, but showed masslike consolidation in the left suprahilar area, 5.8 cm in maximal extent, with multiple bilateral lung nodules, more than 50. There was also mediastinal adenopathy, most prominent in the subcarinal area. Some of the peripheral lung nodules showed some central cavitation. The patient was admitted and started on antibiotics for possible pneumonia, related to the left upper lobe. Consult was placed because of the findings being concerning for malignancy. The patient denies any prior history of malignancy. She has a longstanding history of smoking since her teens, about a pack a day, and between one third to half pack on days that she also vapes. She has a longstanding history of heavy alcohol use, and states that she was diagnosed with "cirrhosis" several years ag o. She quit alcohol for some years at that time and according to her her liver improved. However she did start drinking again. She has a history of rheumatoid arthritis and was on treatment for the same with oral medications, in her 20s. However she states that she stopped following up for that. She denies any active joint swelling at this time. She denied any history of seizures or obvious aspiration. She states that she has had alcohol-related blackouts. No history of any persistent fevers or weight loss. The patient states that a chest x-ray in 2019 or had shown a few lung nodule s, and she was supposed to have annual imaging for surveillance, but she did not follow-up for the same. Review of Systems Constitutional: Reports fatigue, Reports weakness Eyes: denies blurred vision, denies pain Ears: deny: decreased hearing, ear discharge, earache, tinnitus Ears, nose, mouth and throat: Denies headache, Denies sore throat Cardiovascular: Reports chest pain, Reports shortness of breath Respiratory: Reports cough with sputum, Reports dyspnea, Reports pain Gastrointestinal: Reports as per HPI Genitourinary: Denies dysuria, Denies hematuria Musculoskeletal: Reports muscle weakness Integumentary: Denies pruritus, Denies rash Neurological: Reports weakness Psychiatric: Reports as per HPI Endocrine: Reports fatigue Hematologic/Lymphatic: Reports as per HPI Past Medical History Past Medical History: Heart Failure, Fibromyalgia, Rheumatoid Arthritis (RA) Additional Past Medical History / Comment(s): endometriosis History of Any Multi-Drug Resistant Organisms: None Reported Past Surgical History: Section, Hernia Repair, Tubal Ligation Additional Past Surgical History / Comment(s): laproscopy Past Psychological History: Anxiety, Depression Smoking Status: Current every day smoker Past Alcohol Use History: Abuse, Daily Additional Past Alcohol Use History / Comment(s): CAN USUALLY GO THREE TO 5 DAYS WITH OUT ALCOHOL Past Drug Use History: None Reported - Past Family History Mother Family Medical History: Hypertension Father Family Medical History: COPD Medications and Allergies Home Medications Medication Instructions Recorded Confirmed Type Multivitamins, Thera [Multivitamin 1 tab PO DAILY 12/28/18 08/26/24 History (formulary)] Acetaminophen [Tylenol] 650 mg PO Q4H PRN MDD 2,600mg 08/26/24 08/26/24 History Albuterol Nebulized [Ventolin 2.5 mg INHALATION RT-Q4H PRN 08/26/24 08/26/24 History Nebulized] Amoxicillin 500 mg PO TID 08/26/24 08/26/24 History Calcium Phos/D3/Magnesium/Zinc 1 tab PO TID PRN 08/26/24 08/26/24 History [Oirmawg-Qbt-Hzes-Vitamin D3] Chlorpheniramine Maleate 4 mg PO Q4H PRN 08/26/24 08/26/24 History [Chlor-Trimeton] Fluticasone Nasal [place] [Flonase 1 spray EA NOSTRIL DAILY 08/26/24 08/26/24 History Nasal [place]] Furosemide [Lasix] 20 mg PO DAILY 08/26/24 08/26/24 History Hyoscyamine Sulfate [Levsin] 0.125 mg PO QID PRN 08/26/24 08/26/24 History Ibuprofen [Motrin Ib] 600 mg PO Q6H PRN 08/26/24 08/26/24 History Linaclotide [Linzess] 290 mcg PO DAILY 08/26/24 08/26/24 History Loperamide HCl [Imodium A-D] 4 mg PO QID PRN MDD 16mg 08/26/24 08/26/24 History Melatonin 10 mg PO HS 08/26/24 08/26/24 History Pantoprazole [Protonix] 40 mg PO DAILY 08/26/24 08/26/24 History Potassium Chloride ER [K-Dur 10] 10 meq PO DAILY 08/26/24 08/26/24 History Sennosides/Docusate Sodium [Senna 2 tab PO DAILY PRN 08/26/24 08/26/24 History Plus 8.6-50 mg Softgel] Thiamine [Vitamin B-1] 100 mg PO DAILY 08/26/24 08/26/24 History buPROPion XL [Wellbutrin XL] 300 mg PO DAILY 08/26/24 08/26/24 History cloNIDine HCL 0.1 mg PO BID 08/26/24 08/26/24 History cloNIDine HCL [Catapres] 0.1 - 0.3 mg PO Q4H PRN 08/26/24 08/26/24 History guaiFENesin [guaiFENesin Oral 200 mg PO Q4H PRN 08/26/24 08/26/24 History Solution] ondansetron HCL [Zofran] 8 mg PO Q6H PRN 08/26/24 08/26/24 History traZODone HCL [Desyrel] 50 - 150 mg PO HS PRN 08/26/24 08/26/24 History Allergies Allergy/AdvReac Type Severity Reaction Status Date / Time latex Allergy Rash/Hives Verified 08/26/24 17:32 Physical Exam Vitals: Vital Signs Temp Pulse Pulse Resp BP BP Pulse Ox 08/27/24 11:53 76 08/27/24 11:41 76 08/27/24 08:02 76 08/27/24 07:46 72 08/27/24 07:05 98.6 F 69 17 131/87 97 08/27/24 00:55 98.6 F 64 18 110/72 97 08/26/24 23:30 18 08/26/24 20:38 83 18 130/87 97 08/26/24 20:35 77 08/26/24 20:26 106 H 08/26/24 17:00 74 18 140/90 96 08/26/24 16:25 75 18 08/26/24 16:17 72 18 08/26/24 14:05 98.8 F 70 20 141/91 98 Intake and Output 08/26/24 08/27/24 08/27/24 22:59 06:59 14:59 Intake Total 777 Balance 777 Intake: Oral 777 Other: Voiding Method Toilet # Voids 1 Weight 65.771 kg - Constitutional General appearance: no acute distress - EENT Eyes: EOMI, PERRLA ENT: hearing grossly normal, normal oropharynx - Neck Neck: no lymphadenopathy - Respiratory Respiratory: left: wheezing (Scattered wheezes, most prominent in left upper lobe) - Cardiovascular Rhythm: regular Heart sounds: normal: S1, S2 - Gastrointestinal General gastrointestinal: normal bowel sounds, soft - Integumentary Integumentary: normal - Neurologic Neurologic: CNII-XII intact - Musculoskeletal Musculoskeletal: generalized weakness, strength equal bilaterally - Psychiatric Psychiatric: A&O x's 3, appropriate affect Results CBC & Chem 7: 08/26/24 14:15 08/26/24 14:15 Labs: Abnormal Lab Results - Last 24 Hours (Table) 08/26/24 Range/Units 14:15 PT 9.8 L (10.0-12.5) sec D-Dimer 3.17 H (<0.60) mg/L FEU Comments: EKG images reviewed Chest x-ray: report reviewed CT scan - chest: report reviewed, image reviewed Assessment and Plan (1) Pulmonary nodules Narrative/Plan: The patient's imaging shows multiple lung nodules, and a dominant area in the left upper lobe. Images were personally reviewed. The nodules do appear to be solid, and there also appears to be a solid component in the dominant area in the left upper lobe, with likely some surrounding postobstructive pneumonia and/or atelectasis extending to the periphery -The imaging results and implications were discussed with the patient. Given her history, while benign etiologies such as rheumatoid lung disease, as well as multifocal organizing pneumonia are in the differential, malignancy is definitely a possibility. The patient has been seen by pulmonary medicine, and bronchoscopy with biopsy at has been discussed. I am fully in agreement with proceeding with the same. -Check CT of the abdomen and pelvis while awaiting bronchoscopy and biopsy Current Visit: Yes Status: Acute Code(s): R91.8 - OTHER NONSPECIFIC ABNORMAL FINDING OF LUNG FIELD SNOMED Code(s): 937812360 (2) Pneumonia Narrative/Plan: The patient is on IV antibiotics, given that she does appear to have at least a component of pneumonia, as in the left upper lobe. Defer to the admitting servi ce and pulmonary medicine for further treatment. Current Visit: Yes Status: Acute Code(s): J18.9 - PNEUMONIA, UNSPECIFIED ORGANISM SNOMED Code(s): 890732069
[2024-08-27 13:12] LABS: ALT 19 U/L (4-34); AST 21 U/L (14-36); African American GFR (CKD) >90 (>60 ml/min/1.73 sqM); Albumin 3.7 g/dL (3.5-5.0); Albumin/Globulin Ratio 1.2; Alkaline Phosphatase 50 U/L (38-126); Anion Gap 6 mmol/L; Blood Urea Nitrogen 11 mg/dL (7-17); Calcium 8.7 mg/dL (8.4-10.2); Carbon Dioxide 23 mmol/L (22-30); Chloride 107 mmol/L (98-107); Glucose 223 mg/dL (74-99); Non-African American GFR(CKD) 87 (>60 ml/min/1.73 sqM); Potassium 3.6 mmol/L (3.5-5.1); Sodium 136 mmol/L (137-145); Total Bilirubin 0.4 mg/dL (0.2-1.3); Total Protein 6.7 g/dL (6.3-8.2)
[2024-08-27] MEDS: IOPAMIDOL CONTRAST (ORAL USE) VIAL PO PRN (13:46)
--- NOTE | 2024-08-27 13:49 | P.CNPUL ---
History of Present Illness Consult date: 08/27/24 Requesting physician: Homero Celaya Reason for consult: abnormal CXR/CT Chief complaint: Shortness of breath, cough, congestion History of present illness: This is a 49-year-old female patient who resides in [place] and has a history of alcoholism, hypertension, congestive heart failure, depression, fibromyalgia, rheumatoid arthritis not on treatment for nearly 20 years. She presented to the emergency room yesterday with a 1 month history of increasing shortness of breath cough and congestion. Some left-sided chest discomfort. She presented here from [facility] unit and had been there about 10 days. She does have chronic and ongoing tobacco dependence. Chest x-ray reveals a left superior perihilar consolidative opacity with additional nodular opacities throughout the lungs. CT angiogram ruled out pulmonary embolism. Left upper lung consolidation with scattered pulmonary nodules greater than 50 and mediastinal lymphadenopathy concerning for malignancy with diffuse metastatic disease. 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 Indeterminate left adrenal nodule. White count 7.2. Hemoglobin 12.7. Platelets 198. Sodium 136. Potassium 3.6. Bicarb 23. BUN 11. Creatinine 0.81. Glucose 223. Troponin negative x 1. Viral screen negative. She is seen today in consultation on the regular medical floor. She is currently laying flat in bed. Awake and alert in no acute distress. Maintaining good O2 saturations in the 90s on room air. She denies any history of cancer. Denies any weight loss. Denies any sick contacts. She was initiated on Rocephin and azithromycin. Review of Systems REVIEW OF SYSTEMS: CONSTITUTIONAL: Denies any recent significant weight loss or weight gain. EYES: Denies change in vision. EARS, NOSE, MOUTH, THROAT: Denies headaches, denies sore throat. CARDIOVASCULAR: Denies chest pain, palpitations or syncopal episodes. RESPIRATORY: Positive for shortness of breath, cough, congestion no hemoptysis. GASTROINTESTINAL: Denies change in appetite, denies abdominal pain GENITOURINARY: Denies hematuria, denies infections. MUSKULOSKELETAL: Denies pain, denies swelling. INTEGUMENTARY: Denies rash, denies eczema. NEUROLOGICAL: Denies recent memory loss, no recent seizure activity. PSYCHIATRIC: Denies anxiety, denies depression. HEMATOLOGIC/LYMPHATIC: Denies anemia, denies enlarged lymph nodes. Past Medical History Past Medical History: Heart Failure, Fibromyalgia, Rheumatoid Arthritis (RA) Additional Past Medical History / Comment(s): endometriosis History of Any Multi-Drug Resistant Organisms: None Reported Past Surgical History: Section, Hernia Repair, Tubal Ligation Additional Past Surgical History / Comment(s): laproscopy Past Psychological History: Anxiety, Depression Smoking Status: Current every day smoker Past Alcohol Use History: Abuse, Daily Additional Past Alcohol Use History / Comment(s): CAN USUALLY GO THREE TO 5 DAYS WITH OUT ALCOHOL Past Drug Use History: None Reported - Past Family History Mother Family Medical History: Hypertension Father Family Medical History: COPD Medications and Allergies Home Medications Medication Instructions Recorded Confirmed Type Multivitamins, Thera [Multivitamin 1 tab PO DAILY 12/28/18 08/26/24 History (formulary)] Acetaminophen [Tylenol] 650 mg PO Q4H PRN MDD 2,600mg 08/26/24 08/26/24 History Albuterol Nebulized [Ventolin 2.5 mg INHALATION RT-Q4H PRN 08/26/24 08/26/24 History Nebulized] Amoxicillin 500 mg PO TID 08/26/24 08/26/24 History Calcium Phos/D3/Magnesium/Zinc 1 tab PO TID PRN 08/26/24 08/26/24 History [Nrbangy-Rej-Jxkb-Vitamin D3] Chlorpheniramine Maleate 4 mg PO Q4H PRN 08/26/24 08/26/24 History [Chlor-Trimeton] Fluticasone Nasal [place] [Flonase 1 spray EA NOSTRIL DAILY 08/26/24 08/26/24 History Nasal [place]] Furosemide [Lasix] 20 mg PO DAILY 08/26/24 08/26/24 History Hyoscyamine Sulfate [Levsin] 0.125 mg PO QID PRN 08/26/24 08/26/24 History Ibuprofen [Motrin Ib] 600 mg PO Q6H PRN 08/26/24 08/26/24 History Linaclotide [Linzess] 290 mcg PO DAILY 08/26/24 08/26/24 History Loperamide HCl [Imodium A-D] 4 mg PO QID PRN MDD 16mg 08/26/24 08/26/24 History Melatonin 10 mg PO HS 08/26/24 08/26/24 History Pantoprazole [Protonix] 40 mg PO DAILY 08/26/24 08/26/24 History Potassium Chloride ER [K-Dur 10] 10 meq PO DAILY 08/26/24 08/26/24 History Sennosides/Docusate Sodium [Senna 2 tab PO DAILY PRN 08/26/24 08/26/24 History Plus 8.6-50 mg Softgel] Thiamine [Vitamin B-1] 100 mg PO DAILY 08/26/24 08/26/24 History buPROPion XL [Wellbutrin XL] 300 mg PO DAILY 08/26/24 08/26/24 History cloNIDine HCL 0.1 mg PO BID 08/26/24 08/26/24 History cloNIDine HCL [Catapres] 0.1 - 0.3 mg PO Q4H PRN 08/26/24 08/26/24 History guaiFENesin [guaiFENesin Oral 200 mg PO Q4H PRN 08/26/24 08/26/24 History Solution] ondansetron HCL [Zofran] 8 mg PO Q6H PRN 08/26/24 08/26/24 History traZODone HCL [Desyrel] 50 - 150 mg PO HS PRN 08/26/24 08/26/24 History Allergies Allergy/AdvReac Type Severity Reaction Status Date / Time latex Allergy Rash/Hives Verified 08/26/24 17:32 Physical Exam Vitals: Vital Signs Temp Pulse Pulse Resp BP BP Pulse Ox 08/27/24 11:53 76 08/27/24 11:41 76 08/27/24 08:02 76 08/27/24 07:46 72 08/27/24 07:05 98.6 F 69 17 131/87 97 08/27/24 00:55 98.6 F 64 18 110/72 97 08/26/24 23:30 18 08/26/24 20:38 83 18 130/87 97 08/26/24 20:35 77 08/26/24 20:26 106 H 08/26/24 17:00 74 18 140/90 96 08/26/24 16:25 75 18 08/26/24 16:17 72 18 08/26/24 14:05 98.8 F 70 20 141/91 98 Intake and Output 08/26/24 08/27/24 08/27/24 22:59 06:59 14:59 Intake Total 777 Balance 777 Intake: Oral 777 Other: Voiding Method Toilet # Voids 1 Weight 65.771 kg GENERAL EXAM: Alert, active, 49-year-old female, on room air, comfortable in no apparent distress. HEAD: Normocephalic. EYES: Normal reaction of pupils, equal size. NOSE: Clear with pink turbinates. THROAT: No erythema or exudates. NECK: No masses, no JVD. CHEST: No chest wall deformity. LUNGS: Equal air entry with few scattered rhonchi. CVS: S1 and S2 normal with no audible murmur, regular rhythm. ABDOMEN: No hepatosplenomegaly, normal bowel sounds, no guarding or rigidity. SPINE: No scoliosis or deformity SKIN: No rashes CENTRAL NERVOUS SYSTEM: No focal deficits, tone is normal in all 4 extremities. EXTREMITIES: There is no peripheral edema. No clubbing, no cyanosis. Peripheral pulses are intact. Results - Laboratory Findings CBC and BMP: 08/26/24 14:15 08/27/24 10:45 PT/INR, D-dimer PT 9.8 sec (10.0-12.5) L 08/26/24 14:15 INR 0.9 (<1.2) 08/26/24 14:15 D-Dimer 3.17 mg/L FEU (<0.60) H 08/26/24 14:15 Abnormal lab findings: Abnormal Labs 08/26/24 08/27/24 14:15 10:45 PT 9.8 L D-Dimer 3.17 H Sodium 136 L Glucose 223 H - Diagnostic Findings Chest x-ray: image reviewed CT scan - chest: image reviewed Assessment and Plan Assessment: Left-sided chest pain, shortness of breath and cough suspect secondary to left upper lung consolidation with scattered pulmonary nodules. Possible bacteria, fungal, malignancy, rheumatoid lung Chronic and ongoing tobacco dependence History of vaping Alcoholism, currently residing in [facility] History of rheumatoid arthritis, treated over 20 years ago without much improvement and she has not been on any medications since Fibromyalgia Depression History of congestive heart failure Plan: The patient was seen and evaluated Imaging, labs and medications reviewed Check fungal screening Check a procalcitonin Check for Legionella antigen Check Rh factor, JES Check C ANCA Currently stable and on room air Continue ceftriaxone and azithromycin for now Educated regarding smoking/vaping cessation NicoDerm patch in place Continue bronchodilators, steroids We will continue to follow and make further recommendations based on her clinical status I have personally seen and examined the patient, performed the documentation and the assessment and plan as written. Number of minutes spent on the visit: 20 Dictation was produced using Kiwi dictation software. Please excuse any grammatical, word or spelling errors.
--- NOTE | 2024-08-27 16:04 | CT ---
EXAMINATION TYPE: CT abdomen pelvis w con DATE OF EXAM: 08/27/2024 3:49 PM COMPARISON: Previous CT chest study 08/26/2024. CLINICAL INDICATION: Female, 49 years old with history of Lung mass, lung nodules, possible metastati c malig; Lung mass, lung nodules, possible mets. TECHNIQUE: Axial CT abdomen pelvis w con;Sagittal and coronal reformats were created on a separate w orkstation. Contrast used:100 ml mL of Isovue 300 with IV Contrast, (none if empty) Oral contrast used: with Oral Contrast (none if empty) CT DLP: 503.0 mGycm, Automated exposure control for dose reduction was used. FINDINGS: LOWER CHEST: Innumerable pulmonary nodules suggestive of metastatic disease with nodular interlobular septal thickening possibly reflecting meningitic spread of malignancy. ABDOMEN LIVER: Unremarkable GALLBLADDER AND BILE DUCTS: Unremarkable. PANCREAS: Unremarkable. SPLEEN: Unremarkable. ADRENAL GLANDS: Unremarkable. KIDNEYS AND URETERS: No evidence of hydronephrosis or renal calculus. The ureters are unremarkable. PELVIS BLADDER: No evidence for wall thickening or mass given limitations of exam. REPRODUCTIVE: Retroverted uterus with calcified fibroid changes. ABDOMEN & PELVIS STOMACH AND BOWEL: Stomach and duodenum are unremarkable No evidence of bowel obstruction. PERITONEUM/RETROPERITONEUM: No evidence of pneumoperitoneum or free fluid. VASCULATURE: No evidence of aortic aneurysm. MUSCULOSKELETAL: No acute osseous abnormalities LYMPH NODES: Nonspecific mildly prominent left retroperitoneal periaortic lymph node measuring 10 mm in short access. SOFT TISSUE/ABDOMINAL WALL: Unremarkable IMPRESSION: 1. No acute abnormality in the abdomen/pelvis or convincing CT evidence of primary malignancy. 2. Nonspecific mildly prominent single left retroperitoneal para-aortic lymph node measuring 10 mm i n short access. 3. 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 Recommend direct tissue sampling/biopsy for further evaluati on as clinically warranted. [facility], Workstation: [id number], 08/27/2024 4:01 PM
--- NOTE | 2024-08-27 17:27 | P.PN ---
Progress Note - Text Progress Note Date: 08/27/24 Chief Complaint: Cough This is a 49-year-old patient who follows with Dr. Ruddy Real. Chronic stable medical conditions include fibromyalgia, rheumatoid arthritis, endometriosis, anxiety depression, hypertension, GERD. Patient is currently at [facility] for last 10 days for alcohol rehab. About 3 weeks patient been having creasing cough. Some wheezing. Some pleuritic chest pain with coughing. Denies any fever or chills. Appetite is good. Has fair bowel movements. Patient also does vaping. Also notes some cigarettes. Prior to going to [facility] patient was close to drinking less than a gallon of vodka. Patient been getting dizzy and sometimes passing out at home. August 27: Seen by pulmonary. Planning for possible bronchoscopy for biopsy early next week. Breathing better.Tolerating some diet. CT abdomen pelvis nonspecific. Oral intake fair. Active Medications Acetaminophen (Acetaminophen Tab 325 Mg Tab) 650 mg PO Q4H PRN PRN Reason: Mild Pain or Fever > 100.5 Hydrocodone Bitart/Acetaminophen (Hydrocodone/Apap 5-325mg 1 Each Tab) 1 each PO Q6HR PRN PRN Reason: Moderate to Severe Pain (4-10) Last Admin: 08/27/24 10:20 Dose: 1 each Albuterol/Ipratropium (Ipratropium-Albuterol 3 Ml Neb) 3 ml INHALATION RT-Q2H PRN PRN Reason: Shortness Of Breath Or Wheezing Albuterol/Ipratropium (Ipratropium-Albuterol 3 Ml Neb) 3 ml INHALATION RT-QID [facility] Last Admin: 08/27/24 15:27 Dose: Not Given Azithromycin (Azithromycin 500 Mg Tab) 500 mg PO DAILY [facility]; Protocol Stop: 08/29/24 09:01 Last Admin: 08/27/24 10:17 Dose: 500 mg Budesonide (Budesonide 1 Mg/2 Ml Nebu) 1 mg INHALATION RT-BID [facility] Last Admin: 08/27/24 07:45 Dose: 1 mg Bupropion HCl (Bupropion Xl 300 Mg Tab.Er.24h) 300 mg PO DAILY [facility] Last Admin: 08/27/24 10:17 Dose: 300 mg Clonidine (Clonidine Hcl 0.1 Mg Tab) 0.1 mg PO BID [facility] Last Admin: 08/27/24 10:17 Dose: 0.1 mg Enoxaparin Sodium (Enoxaparin 40 Mg/0.4 Ml Syringe) 40 mg SQ DAILY [facility] Last Admin: 08/27/24 10:17 Dose: 40 mg Hyoscyamine (Hyoscyamine Sulfate 0.125 Mg Tab) 0.125 mg PO QID PRN PRN Reason: withdrawl symptoms/cramps Ceftriaxone Sodium 1 gm/ (Sodium Chloride) 50 mls @ 100 mls/hr IVPB Q24HR [facility]; Protocol Last Admin: 08/27/24 10:17 Dose: 100 mls/hr Lorazepam (Lorazepam 0.5 Mg Tab) 0.5 mg PO Q8H PRN PRN Reason: Anxiety Last Admin: 08/27/24 10:20 Dose: 0.5 mg Melatonin (Melatonin 5 Mg Tablet) 10 mg PO HS [facility] Last Admin: 08/26/24 22:30 Dose: 10 mg Multivitamins (Multivitamins, Thera 1 Each Tab) 1 each PO DAILY [facility] Last Admin: 08/27/24 10:17 Dose: 1 each Naloxone HCl (Naloxone 0.4 Mg/Ml 1 Ml Vial) 0.2 mg IVP Q2M PRN PRN Reason: Opioid Reversal Nicotine (Nicotine 14mg/24hr Patch) 1 patch TRANSDERM DAILY@1600 [facility] Linaclotide [Linzess (] 290 Mcg Capsule) 290 mcg PO DAILY [facility] Last Admin: 08/27/24 10:22 Dose: Not Given Ondansetron HCl (Ondansetron 4 Mg Tab) 8 mg PO Q6H PRN PRN Reason: Nausea Pantoprazole Sodium (Pantoprazole 40 Mg Tablet) 40 mg PO -BRKT [facility] Last Admin: 08/27/24 10:17 Dose: 40 mg Prednisone (Prednisone 20 Mg Tab) 40 mg PO DAILY [facility] Stop: 08/31/24 09:01 Last Admin: 08/27/24 10:17 Dose: 40 mg Senna/Docusate Sodium (Sennosides-Docusate Sodium 1 Each Tab) 2 each PO DAILY PRN PRN Reason: Constipation Thiamine HCl (Thiamine 100 Mg Tab) 100 mg PO DAILY [facility] Last Admin: 08/27/24 10:17 Dose: 100 mg Social history: Patient is . Lives with her mother. Was drinking close to a gallon of vodka prior to getting admitted to rehab. Does vaping also smoke a few cigarettes. Physical examination: VITAL SIGNS: 97.4, 60, 17, 116% 8, 98% room air GENERAL: BMI 24.9, reclining in bed EYES: Pupils equal. Conjunctiva alyce l. HEENT: External appearance of nose and ears normal, oral cavity grossly normal. NECK: JVD not raised; masses not palpable. HEART: First and second heart sounds are normal; no edema. LUNGS: Respiratory rate increased l; diminished breath sounds, wheezing. ABDOMEN: Soft, nontender, liver spleen not palpable, no masses palpable. PSYCH: Alert and oriented x3; mood and affect alyce l. MUSCULOSKELETAL:No Clubbing/cyanosis;muscles-grossly intact INVESTIGATIONS, reviewed in the clinical context: August 27: Sodium 136 potassium 3.6 creatinine 0.81. Procalcitonin 0.04 August 26, 2024: White count 7.2 hemoglobin 12.7 platelets 198 sodium 139 potassium 4.6 creatinine 0.74 Influenza type a type B RSV COVID-19: Not detected EKG tracing personally reviewed by me-normal sinus rhythm Chest x-ray film personally reviewed by me-left upper lobe opacity. Some other nodular opacities scattered. CT angio chest: More than 50 nodules throughout the lungs. Left upper lung masslike consolidation. 58 x 32 mm. Some nodules of central cavitation. Lymphadenopathy. Negative for PE Assessment plan: -Left upper lobe consolidation and multiple lung nodules. Strongly suspicious for metastatic disease. In a smoker. Seen by Dr. Desai from pulmonary. Plan for bronchoscopy for biopsy early next week -Suspect pneumonia suggest gram-negative organism given the clinical presentation of cough wheezing. Sputum production Ceftriaxone. Zithromax -Alcohol use disorder Patient was drinking close to a gallon prior to getting admitted to [facility] where she is currently under rehab. Last drink was about 2 weeks ago -Essential hypertension Catapres. -Chronic nicotine dependence plus vaping Nicotine patch -Acute COPD exacerbation in a smoker DuoNeb. Nebulized Pulmicort -Anxiety depression Trazodone. Wellbutrin XL -Full code Discussed with patient. Increase activity. Past Medical History Past Medical History: Heart Failure, Fibromyalgia, Rheumatoid Arthritis (RA) Additional Past Medical History / Comment(s): endometriosis History of Any Multi-Drug Resistant Organisms: None Reported Past Surgical History: Section, Hernia Repair, Tubal Ligation Additional Past Surgical History / Comment(s): laproscopy Past Psychological History: Anxiety, Depression Past Alcohol Use History: Abuse, Daily Past Drug Use History: None Reported
[2024-08-27] MEDS: NICOTINE 14MG/24HR PATCH TRANSDERM SCH (17:32)
[2024-08-27] MEDS: SENNOSIDES-DOCUSATE SODIUM 1 EACH TAB PO PRN (17:35)
--- NOTE | 2024-08-28 13:39 | P.PN ---
Subjective Progress Note Date: 08/28/24 This is a 49-year-old female patient who resides in [place] and has a history of alcoholism, hypertension, congestive heart failure, depression, fibromyalgia, rheumatoid arthritis not on treatment for nearly 20 years. She presented to the emergency room yesterday with a 1 month history of increasing shortness of breath cough and congestion. Some left-sided chest discomfort. She presented here from [facility] and had been there about 10 days. She does have chronic and ongoing tobacco dependence. Chest x-ray reveals a left superior perihilar consolidative opacity with additional nodular opacities throughout the lungs. CT angiogram ruled out pulmonary embolism. Left upper lung consolidation with scattered pulmonary nodules greater than 50 and mediastinal lymphadenopathy concerning for malignancy with diffuse metastatic disease. 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 Indeterminate left adrenal nodule. White count 7.2. Hemoglobin 12.7. Platelets 198. Sodium 136. Potassium 3.6. Bicarb 23. BUN 11. Creatinine 0.81. Glucose 223. Troponin negative x 1. Viral screen negative. She is seen today in consultation on the regular medical floor. She is currently laying flat in bed. Awake and alert in no acute distress. Maintaining good O2 saturations in the 90s on room air. She denies any history of cancer. Denies any weight loss. Denies any sick contacts. She was initiated on Rocephin and azithromycin. The patient is seen today August 28, 2024 in follow-up on the regular medical floor. She is currently sitting up in a chair at the bedside. Awake and alert in no acute distress. She is maintaining O2 saturations in the 90s on room air. Denies any worsening shortness of breath, cough or congestion. She has been afebrile. Hemodynamically stable. Her main complaint is that of anxiety. Blood culture revealing no growth. Urine culture revealed no growth. Procalcitonin negative at 0.04. Rheumatoid factor less than 15. CT scan of the abdomen and pelvis revealed no acute abnormalities. Objective - Vital Signs Vital signs: Vital Signs Temp 97.5 F L 08/28/24 07:57 Pulse 80 08/28/24 11:49 Resp 16 08/28/24 10:00 BP 157/96 08/28/24 07:57 Pulse Ox 99 08/28/24 07:57 FiO2 Intake & Output 08/27/24 08/28/2424 18:59 06:59 18:59 Intake Total 827 Balance 827 Intake: Intake, IV Titration 50 Amount cefTRIAXone 1 gm In 50 Sodium Chloride 0.9% 50 ml @ 100 mls/hr IVPB Q24HR [facility] Rx#:[id number] Oral 777 Other: Voiding Method Toilet Toilet # Voids 8 2 - Exam GENERAL EXAM: Alert, 49-year-old female, sitting up in a chair, on room air, in no apparent distress. HEAD: Normocephalic. EYES: Normal reaction of pupils, equal size. NOSE: Clear with pink turbinates. THROAT: No erythema or exudates. NECK: No masses, no JVD. CHEST: No chest wall deformity. LUNGS: Equal air entry with few scattered rhonchi. CVS: S1 and S2 normal with no audible murmur, regular rhythm. ABDOMEN: No hepatosplenomegaly, normal bowel sounds, no guarding or rigidity. SPINE: No scoliosis or deformity SKIN: No rashes CENTRAL NERVOUS SYSTEM: No focal deficits, tone is normal in all 4 extremities. EXTREMITIES: There is no peripheral edema. No clubbing, no cyanosis. Peripheral pulses are intact. - Labs CBC & Chem 7: 08/26/24 14:15 08/27/24 10:45 Labs: Microbiology - Last 24 Hours (Table) 08/27/24 00:33 Urine Culture - Final Urine,Voided 08/26/24 16:58 Blood Culture - Preliminary Blood Assessment and Plan Assessment: Left-sided chest pain, shortness of breath and cough suspect secondary to left upper lung consolidation with scattered pulmonary nodules. Possible bacteria, fungal, malignancy, rheumatoid lung Chronic and ongoing tobacco dependence History of vaping Alcoholism, currently residing in [facility] History of rheumatoid arthritis, treated over 20 years ago without much improvement and she has not been on any medications since Fibromyalgia Depression History of congestive heart failure Plan: The patient was seen and evaluated Imaging, labs and medications reviewed Further lab testing still pending Currently stable and on room air Procalcitonin negative May require bronchoscopy with biopsies NicoDerm patch in place Continue bronchodilators, steroids Follow-up chest x-ray in a.m. We will continue to follow I have personally seen and examined the patient, performed the documentation and the assessment and plan as written. Number of minutes spent on the visit: 10 Dictation was produced using Dragon dictation software. Please excuse any grammatical, word or spelling errors.
--- NOTE | 2024-08-28 14:55 | P.PN ---
Progress Note - Text Progress Note Date: 08/28/24 Chief Complaint: Cough This is a 49-year-old patient who follows with Dr. Ruddy Real. Chronic stable medical conditions include fibromyalgia, rheumatoid arthritis, endometriosis, anxiety depression, hypertension, GERD. Patient is currently at [place] [facility] for last 10 days for alcohol rehab. About 3 weeks patient been having creasing cough. Some wheezing. Some pleuritic chest pain with coughing. Denies any fever or chills. Appetite is good. Has fair bowel movements. Patient also does vaping. Also notes some cigarettes. Prior to going to [place] patient was close to drinking less than a gallon of vodka. Patient been getting dizzy and sometimes passing out at home. August 27: Seen by pulmonary. Planning for possible bronchoscopy for biopsy early next week. Breathing better.Tolerating some diet. CT abdomen pelvis nonspecific. Oral intake fair. August 28: Patient denies being anxious. Patient is on Wellbutrin. l. Some cough. No sputum anymore. Will consult psychiatry for uncontrolled anxiety. In the meantime patient to get Ativan 0.5 every 8 as needed. Awaiting decision from pulmonary regarding bronchoscopy with biopsy. Active Medications Acetaminophen (Acetaminophen Tab 325 Mg Tab) 650 mg PO Q4H PRN PRN Reason: Mild Pain or Fever > 100.5 Hydrocodone Bitart/Acetaminophen (Hydrocodone/Apap 5-325mg 1 Each Tab) 1 each PO Q6HR PRN PRN Reason: Moderate to Severe Pain (4-10) Last Admin: 08/28/24 02:46 Dose: 1 each Albuterol/Ipratropium (Ipratropium-Albuterol 3 Ml Neb) 3 ml INHALATION RT-Q2H PRN PRN Reason: Shortness Of Breath Or Wheezing Albuterol/Ipratropium (Ipratropium-Albuterol 3 Ml Neb) 3 ml INHALATION RT-QID [facility] Last Admin: 08/28/24 11:38 Dose: 3 ml Azithromycin (Azithromycin 500 Mg Tab) 500 mg PO DAILY [facility]; Protocol Stop: 08/29/24 09:01 Last Admin: 08/28/24 08:42 Dose: 500 mg Budesonide (Budesonide 1 Mg/2 Ml Nebu) 1 mg INHALATION RT-BID [facility] Last Admin: 08/28/24 07:32 Dose: 1 mg Bupropion HCl (Bupropion Xl 300 Mg Tab.Er.24h) 300 mg PO DAILY [facility] Last Admin: 08/28/24 08:41 Dose: 300 mg Clonidine (Clonidine Hcl 0.1 Mg Tab) 0.1 mg PO BID [facility] Last Admin: 08/28/24 08:41 Dose: 0.1 mg Enoxaparin Sodium (Enoxaparin 40 Mg/0.4 Ml Syringe) 40 mg SQ DAILY [facility] Last Admin: 08/28/24 08:41 Dose: 40 mg Hyoscyamine (Hyoscyamine Sulfate 0.125 Mg Tab) 0.125 mg PO QID PRN PRN Reason: withdrawl symptoms/cramps Ceftriaxone Sodium 1 gm/ (Sodium Chloride) 50 mls @ 100 mls/hr IVPB Q24HR [facility]; Protocol Last Admin: 08/28/24 08:42 Dose: 100 mls/hr Lorazepam (Lorazepam 0.5 Mg Tab) 0.5 mg PO Q8H PRN PRN Reason: Anxiety Last Admin: 08/28/24 08:49 Dose: 0.5 mg Melatonin (Melatonin 5 Mg Tablet) 10 mg PO [facility] Last Admin: 08/27/24 21:01 Dose: 10 mg Multivitamins (Multivitamins, Thera 1 Each Tab) 1 each PO DAILY [facility] Last Admin: 08/28/24 08:41 Dose: 1 each Naloxone HCl (Naloxone 0.4 Mg/Ml 1 Ml Vial) 0.2 mg IVP Q2M PRN PRN Reason: Opioid Reversal Nicotine (Nicotine 14mg/24hr Patch) 1 patch TRANSDERM DAILY@1600 [facility] Last Admin: 08/27/24 17:32 Dose: 1 patch Linaclotide [Linzess (] 290 Mcg Capsule) 290 mcg PO DAILY [facility] Last Admin: 08/28/24 08:40 Dose: Not Given Ondansetron HCl (Ondansetron 4 Mg Tab) 8 mg PO Q6H PRN PRN Reason: Nausea Pantoprazole Sodium (Pantoprazole 40 Mg Tablet) 40 mg PO AC-BRKFST [facility] Last Admin: 08/28/24 08:41 Dose: 40 mg Prednisone (Prednisone 20 Mg Tab) 40 mg PO DAILY [facility] Stop: 08/31/24 09:01 Last Admin: 08/28/24 08:41 Dose: 40 mg Senna/Docusate Sodium (Sennosides-Docusate Sodium 1 Each Tab) 2 each PO DAILY PRN PRN Reason: Constipation Last Admin: 08/27/24 17:35 Dose: 2 each Thiamine HCl (Thiamine 100 Mg Tab) 100 mg PO DAILY [facility] Last Admin: 08/28/24 08:41 Dose: 100 mg Social history: Patient is . Lives with her mother. Was drinking close to a gallon of vodka prior to getting admitted to rehab. Does vaping also smoke a few cigarettes. Physical examination: VITAL SIGNS: 98.3, 74, 16, 10/21/1983, 98% room air GENERAL: BMI 24.9, resting in bed EYES: Pupils equal. Conjunctiva alyce l. HEENT: External appearance of nose and ears normal, oral cavity grossly normal. NECK: JVD not raised; masses not palpable. HEART: First and second heart sounds are normal; no edema. LUNGS: Respiratory rate increased l; diminished breath sounds, wheezing-better. ABDOMEN: Soft, nontender, liver spleen not palpable, no masses palpable. PSYCH: Alert and oriented x3; mood and affect anxious MUSCULOSKELETAL:No Clubbing/cyanosis;muscles-grossly intact INVESTIGATIONS, reviewed in the clinical context: August 27: Sodium 136 potassium 3.6 creatinine 0.81. Procalcitonin 0.04 August 26, 2024: White count 7.2 hemoglobin 12.7 platelets 198 sodium 139 potassium 4.6 creatinine 0.74 Influenza type a type B RSV COVID-19: Not detected EKG tracing personally reviewed by me-normal sinus rhythm Chest x-ray film personally reviewed by me-left upper lobe opacity. Some other nodular opacities scattered. CT angio chest: More than 50 nodules throughout the lungs. Left upper lung masslike consolidation. 58 x 32 mm. Some nodules of central cavitation. Lymphadenopathy. Negative for PE Assessment plan: -Left upper lobe consolidation and multiple lung nodules. Strongly suspicious for metastatic disease. In a smoker. Seen by Dr. Desai from pulmonary. Plan for bronchoscopy for biopsy early next week -Suspect pneumonia suggest gram-negative organism given the clinical presentation of cough wheezing. Sputum production Ceftriaxone. Zithromax -Alcohol use disorder Patient was drinking close to a gallon prior to getting admitted to [place] where she is currently under rehab. Last drink was about 2 weeks ago -Essential hypertension Catapres. -Chronic nicotine dependence plus vaping Nicotine patch -Acute COPD exacerbation in a smoker Jay. Nebulized Pulmicort -Anxiety depression, peds anxiety uncontrolled Trazodone. Wellbutrin XL Consult psychiatry -Full code Consult psychiatry for anxiety. Other medication to continue. Bronchoscopy per pulmonary Past Medical History Past Medical History: Heart Failure, Fibromyalgia, Rheumatoid Arthritis (RA) Additional Past Medical History / Comment(s): endometriosis History of Any Multi-Drug Resistant Organisms: None Reported Past Surgical History: Section, Hernia Repair, Tubal Ligation Additional Past Surgical History / Comment(s): laproscopy Past Psychological History: Anxiety, Depression Past Alcohol Use History: Abuse, Daily Past Drug Use History: None Reported
--- NOTE | 2024-08-29 11:41 | XR ---
EXAMINATION TYPE: XR chest 1V portable DATE OF EXAM: 08/29/2024 6:50 AM COMPARISON: 08/26/2024 CLINICAL INDICATION: Female, 49 years old with history of Pneumonia, mass, TECHNIQUE: XR chest 1V portable view(s) obtained. FINDINGS: The heart size is normal. The pulmonary vasculature is normal. There is some streak opacity within the left perihilar region. Multiple patchy densities are through the right peripheral lung and left lower lung field. IMPRESSION: 1. Stable appearance of left perihilar masslike density and multiple bilateral pulmonary nodules. [facility], , 08/29/2024 11:39 AM
[2024-08-29 13:28] LABS: C-ANCA <1:20 Titer (<1:20)
--- NOTE | 2024-08-29 14:01 | P.CN ---
Psychiatric Consult - . Consult date: 08/29/24 Consult:: 08/29/24 13:52 IDENTIFYING DATA: This patient is a 49-year-old female, currently at [facility] REASON FOR REFERRAL: Psychiatry was consulted for uncontrolled anxiety HISTORY OF PRESENT ILLNESS: The patient presented to the hospital with shortness of breath and cough. Chest x-ray revealed consolidation with several nodular opacities and pulmonology was consulted. Patient was started on antibiotics with a plan to receive bronchoscopy and biopsy tomorrow. Patient states anxiety is directly related to possible cancer diagnosis and upcoming bronchoscopy. She does report a history of anxiety and states previously she would self medicate with alcohol for this. She states alcohol has been an issue for her since her early 30s and she has gone to rehab several times. She also reports having 2 DUIs from previous substance use and that this prevents her from obtaining employment as she is unable to drive. She is currently prescribed Ativan as needed for anxiety however this was discouraged given the propensity to develop a tolerance and dependence with this medication especially when combined with Alvaton. Patient states she has previously tried gabapentin for RA and she was not in agreement with starting this for anxiety related to alcohol use. She states previously trying Zyprexa which was effective for anxiety however does not wish to gain weight from this medication. She does mention trying hydroxyzi ne previously and was in agreement with giving this a shot again today. At this time patient denies any suicidal or homical ideations, intent or plan. Patient denies any auditory, visual hallucinations and denies any paranoia or delusions. Patients admits to using nicotine. Before rehab she was drinking up to 1/2 gallon of hard liquor per day. PAST PSYCHIATRIC HISTORY: Patient has a a history of depression/anxiety and alcohol use disorder. She is currently prescribed Wellbutrin XL 300 mg daily, melatonin 10 mg at bedtime by her PCP. She reports 1 previous inpatient hospitalization. Patient denies any psychiatric outpatient follow-up. Patient denies any history of suicide attempts in the past. PAST MEDICAL HISTORY: Fibromyalgia, RA. ALLERGIES: as per EMR. CHEMICAL DEPENDENCY HISTORY: as per HPI. FAMILY PSYCHIATRIC/SUBSTANCE USE HISTORY: Denies SOCIAL HISTORY: Patient is currently at [facility] but was previously living with her mother. She has 2 kids. She is unemployed. She reports having 2 previous DUIs MENTAL STATUS EXAM: General Appearance: Patient appears to be stated age is alert, pleasant, and cooperative. Patient appears to have fair hygiene and grooming wearing hospital gown with fair eye contact. Behavior: Patient is calmly lying in bed without any agitated behavior. Speech: Patient's speech is fluent and nonpressured. Mood/Affect: Patient reports their mood is "anxious", affect is congruent, blunted Suicidality/Homicidality: Patient denies having any suicidal or homicidal ideation intent or plan. Perceptions: Patient denies any visual hallucinations and denies any auditory hallucinations Though content/process: There is no evidence of any delusional thought content and thought process is linear and goal-directed. Memory and concentration: AOX3, grossly intact for the purposes of this session. Can spell "WORLD" backwards Judgment and insight: Poor IMPRESSIONS: Alcohol use disorder, severe Anxiety, unspecified Depression, unspecified Nicotine dependence PLAN: -At this time patient DOES NOT meet criteria for inpatient psychiatric admission. -Would recommend the following medication changes/additions: Start Vistaril 25 mg 3 times daily as needed for anxiety, continue Wellbutrin XL 300 mg daily for depression, melatonin 10 mg at bedtime for sleep -janitorial maintenance worker to provide patient with outpatient mental health/psychiatry [facility] for appropriate follow up upon discharge -Card Maker spoke with patient about substance abuse and the harmful effects on medical and mental health, patient verbally understood and agreed. -Communicated plan to patient's nurse -Will continue to follow along -Please contact with any questions. 08/29/24 13:54 08/29/24 13:54
--- NOTE | 2024-08-29 15:08 | P.PN ---
Subjective Progress Note Date: 08/29/24 This is a 49-year-old female patient who resides in [place] and has a history of alcoholism, hypertension, congestive heart failure, depression, fibromyalgia, rheumatoid arthritis not on treatment for nearly 20 years. She presented to the emergency room yesterday with a 1 month history of increasing shortness of breath cough and congestion. Some left-sided chest discomfort. She presented here from [facility] and had been there about 10 days. She does have chronic and ongoing tobacco dependence. Chest x-ray reveals a left superior perihilar consolidative opacity with additional nodular opacities throughout the lungs. CT angiogram ruled out pulmonary embolism. Left upper lung consolidation with scattered pulmonary nodules greater than 50 and mediastinal lymphadenopathy concerning for malignancy with diffuse metastatic disease. 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 Indeterminate left adrenal nodule. White count 7.2. Hemoglobin 12.7. Platelets 198. Sodium 136. Potassium 3.6. Bicarb 23. BUN 11. Creatinine 0.81. Glucose 223. Troponin negative x 1. Viral screen negative. She is seen today in consultation on the regular medical floor. She is currently laying flat in bed. Awake and alert in no acute distress. Maintaining good O2 saturations in the 90s on room air. She denies any history of cancer. Denies any weight loss. Denies any sick contacts. She was initiated on Rocephin and azithromycin. The patient is seen today August 28, 2024 in follow-up on the regular medical floor. She is currently sitting up in a chair at the bedside. Awake and alert in no acute distress. She is maintaining O2 saturations in the 90s on room air. Denies any worsening shortness of breath, cough or congestion. She has been afebrile. Hemodynamically stable. Her main complaint is that of anxiety. Blood culture revealing no growth. Urine culture revealed no growth. Procalcitonin negative at 0.04. Rheumatoid factor less than 15. CT scan of the abdomen and pelvis revealed no acute abnormalities. The patient is seen today August 29, 2024 in follow-up on the regular medical floor. She is currently sitting up in bed. Awake and alert in no acute distress. Continues to maintain good O2 saturations in the 90s on room air. She has normal staying at KVO. She remains on DuoNeb and elations, prednisone. Continued on Pulmicort. NicoDerm patch in place. Lovenox for DVT prophylaxis. Currently on ceftriaxone and azithromycin. Procalcitonin is negative at 0.04. Rheumatoid factor less than 15. JES negative. P ANCA, C ANCA's negative. Urine Legionella screen negative. Urine culture revealed no growth. Blood culture revealing no growth thus far. Sputum culture no growth thus far. Hemodynamically stable. Chest x-ray shows stable appearance of the left perihilar masslike density and multiple bilateral pulmonary nodules. Objective - Vital Signs Vital signs: Vital Signs Temp 98.0 F 08/29/24 12:22 Pulse 61 08/29/24 12:22 Resp 16 08/29/24 12:22 BP 111/76 08/29/24 12:22 Pulse Ox 96 08/29/24 12:22 FiO2 Intake & Output 08/28/24 08/29/24 08/29/24 18:59 06:59 18:59 Intake Total 1060 220 720 Balance 1060 220 720 Weight 66.7 kg Intake: Oral 1060 220 720 Other: Voiding Method Toilet Toilet - Exam GENERAL EXAM: Alert, pleasant 49-year-old female, resting in bed, on room air, in no apparent distress. HEAD: Normocephalic. EYES: Normal reaction of pupils, equal size. NOSE: Clear with pink turbinates. THROAT: No erythema or exudates. NECK: No masses, no JVD. CHEST: No chest wall deformity. LUNGS: Equal air entry with few scattered rhonchi. CVS: S1 and S2 normal with no audible murmur, regular rhythm. ABDOMEN: No hepatosplenomegaly, normal bowel sounds, no guarding or rigidity. SPINE: No scoliosis or deformity SKIN: No rashes CENTRAL NERVOUS SYSTEM: No focal deficits, tone is normal in all 4 extremities. EXTREMITIES: There is no peripheral edema. No clubbing, no cyanosis. Peripheral pulses are intact. - Labs CBC & Chem 7: 08/26/24 14:15 08/27/24 10:45 Labs: Microbiology - Last 24 Hours (Table) 08/28/24 19:55 Gram Stain - Preliminary Sputum Sputum Culture - Preliminary 08/26/24 16:58 Blood Culture - Preliminary Blood 08/27/24 00:33 Urine Culture - Final Urine,Voided Assessment and Plan Assessment: Left-sided chest pain, shortness of breath and cough suspect secondary to left upper lung consolidation with scattered pulmonary nodules. Procalcitonin negative. Rheumatoid factor negative. JES negative. P-ANCA c-ANCA negative. Legionella urine antigen negative Chronic and ongoing tobacco dependence History of vaping Alcoholism, currently residing in [facility] History of rheumatoid arthritis, treated over 20 years ago without much improvement and she has not been on any medications since Fibromyalgia Depression History of congestive heart failure Plan: The patient was seen and evaluated Chest x-ray, labs and medications reviewed Currently stable and on room air Procalcitonin negative Antibiotics discontinued Continue bronchodilators, steroids Left perihilar masslike density and multiple pulmonary nodules remain Reviewed the case with Dr. Santos Will plan for bronchoscopy with BAL/biopsies tomorrow Discussed in detail with the patient who is agreeable to the plan This patient was seen independently by the pulmonary nurse practitioner addressing pulmonary issues I have personally seen and examined the patient, performed the documentation and the assessment and plan as written. Number of minutes spent on the visit: 24 Dictation was produced using [employer] dictation software. Please excuse any grammatical, word or spelling errors.
--- NOTE | 2024-08-29 15:13 | MR ---
EXAMINATION TYPE: MR brain wo/w con DATE OF EXAM: 08/29/2024 12:57 PM COMPARISON: None. CLINICAL INDICATION: Female, 49 years old with history of Possible metastatic disease, TECHNIQUE: Multiplanar, multiecho imaging on a 3.0 Clara magnet is performed through the brain. Stud y is performed within 24 hours of arrival to the hospital.Multiplanar, multiecho imaging on a 3.0 Shannan la magnet is performed through the knee. IV Contrast: mL Gadobutrol FINDINGS: The craniovertebral junction is normal. The pituitary is normal. Diffusion-weighted imaging is performed. No abnormal hyperintensity is present to suggest an acute i ntracranial infarct or acute ischemic change. No suspicious signal abnormality within the brain is evident. Following contrast no abnormal enhancem ent is evident. Ventricles and sulci are appropriate for the patient age. IMPRESSION: 1. No suspicious abnormality to suggest metastatic disease. 2. No acute intracranial process radiographically apparent. [facility], , 08/29/2024 3:11 PM
[2024-08-29] MEDS: hydrOXYzine HCL 25 MG TAB PO PRN (17:14)
--- NOTE | 2024-08-29 20:29 | P.PN ---
Progress Note - Text Progress Note Date: 08/29/24 Chief Complaint: Cough This is a 49-year-old patient who follows with Dr. Ruddy Real. Chronic stable medical conditions include fibromyalgia, rheumatoid arthritis, endometriosis, anxiety depression, hypertension, GERD. Patient is currently at [facility] for last 10 days for alcohol rehab. About 3 weeks patient been having creasing cough. Some wheezing. Some pleuritic chest pain with coughing. Denies any fever or chills. Appetite is good. Has fair bowel movements. Patient also does vaping. Also notes some cigarettes. Prior to going to [facility] patient was close to drinking less than a gallon of vodka. Patient been getting dizzy and sometimes passing out at home. August 27: Seen by pulmonary. Planning for possible bronchoscopy for biopsy early next week. Breathing better.Tolerating some diet. CT abdomen pelvis nonspecific. Oral intake fair. August 28: Patient denies being anxious. Patient is on Wellbutrin. l. Some cough. No sputum anymore. Will consult psychiatry for uncontrolled anxiety. In the meantime patient to get Ativan 0.5 every 8 as needed. Awaiting decision from pulmonary regarding bronchoscopy with biopsy. August 29: Saw the patient this morning. Antibiotics discontinued by Dr. Santos. Plan for bronchoscopy tomorrow. Vistaril 25 mg 3 times daily as needed for anxiety. Will therefore DC Ativan. Active Medications Acetaminophen (Acetaminophen Tab 325 Mg Tab) 650 mg PO Q4H PRN PRN Reason: Mild Pain or Fever > 100.5 Hydrocodone Bitart/Acetaminophen (Hydrocodone/Apap 5-325mg 1 Each Tab) 1 each PO Q6HR PRN PRN Reason: Moderate to Severe Pain (4-10) Last Admin: 08/29/24 20:00 Dose: 1 each Albuterol/Ipratropium (Ipratropium-Albuterol 3 Ml Neb) 3 ml INHALATION RT-Q2H PRN PRN Reason: Shortness Of Breath Or Wheezing Albuterol/Ipratropium (Ipratropium-Albuterol 3 Ml Neb) 3 ml INHALATION RT-QID [facility] Last Admin: 08/29/24 16:02 Dose: 3 ml Budesonide (Budesonide 1 Mg/2 Ml Nebu) 1 mg INHALATION RT-BID [facility] Last Admin: 08/29/24 08:40 Dose: 1 mg Bupropion HCl (Bupropion Xl 300 Mg Tab.Er.24h) 300 mg PO DAILY [facility] Last Admin: 08/29/24 08:48 Dose: 300 mg Clonidine (Clonidine Hcl 0.1 Mg Tab) 0.1 mg PO BID [facility] Last Admin: 08/29/24 19:59 Dose: 0.1 mg Enoxaparin Sodium (Enoxaparin 40 Mg/0.4 Ml Syringe) 40 mg SQ DAILY [facility] Last Admin: 08/29/24 08:40 Dose: 40 mg Hydroxyzine HCl (Hydroxyzine Hcl 25 Mg Tab) 25 mg PO TID PRN PRN Reason: Anxiety Last Admin: 08/29/24 17:14 Dose: 25 mg Hyoscyamine (Hyoscyamine Sulfate 0.125 Mg Tab) 0.125 mg PO QID PRN PRN Reason: withdrawl symptoms/cramps Melatonin (Melatonin 5 Mg Tablet) 10 mg PO HS [facility] Last Admin: 08/29/24 19:59 Dose: 10 mg Multivitamins (Multivitamins, Thera 1 Each Tab) 1 each PO DAILY [facility] Last Admin: 08/29/24 08:40 Dose: 1 each Naloxone HCl (Naloxone 0.4 Mg/Ml 1 Ml Vial) 0.2 mg IVP Q2M PRN PRN Reason: Opioid Reversal Nicotine (Nicotine 14mg/24hr Patch) 1 patch TRANSDERM DAILY@1600 [facility] Last Admin: 08/29/24 15:13 Dose: 1 patch Linaclotide [Linzess (] 290 Mcg Capsule) 290 mcg PO DAILY [facility] Last Admin: 08/29/24 08:41 Dose: Not Given Ondansetron HCl (Ondansetron 4 Mg Tab) 8 mg PO Q6H PRN PRN Reason: Nausea Pantoprazole Sodium (Pantoprazole 40 Mg Tablet) 40 mg PO AC-BRKFST [facility] Last Admin: 08/29/24 08:40 Dose: 40 mg Prednisone (Prednisone 20 Mg Tab) 40 mg PO DAILY [facility] Stop: 08/31/24 09:01 Last Admin: 08/29/24 08:40 Dose: 40 mg Senna/Docusate Sodium (Sennosides-Docusate Sodium 1 Each Tab) 2 each PO DAILY PRN PRN Reason: Constipation Last Admin: 08/29/24 08:48 Dose: 2 each Thiamine HCl (Thiamine 100 Mg Tab) 100 mg PO DAILY [facility] Last Admin: 08/29/24 08:40 Dose: 100 mg Social history: Patient is . Lives with her mother. Was drinking close to a gallon of vodka prior to getting admitted to rehab. Does vaping also smoke a few cigarettes. Physical examination: VITAL SIGNS: 98.2, 69, 14, 138 x 78, 97% room air GENERAL: BMI 24.9, resting in bed EYES: Pupils equal. Conjunctiva alyce l. HEENT: External appearance of nose and ears normal, oral cavity grossly normal. NECK: JVD not raised; masses not palpable. HEART: First and second heart sounds are normal; no edema. LUNGS: Respiratory rate increased l; diminished breath sounds, some wheezing ABDOMEN: Soft, nontender, liver spleen not palpable, no masses palpable. PSYCH: Alert and oriented x3; mood and affect anxious MUSCULOSKELETAL:No Clubbing/cyanosis;muscles-grossly intact INVESTIGATIONS, reviewed in the clinical context: August 27: Sodium 136 potassium 3.6 creatinine 0.81. Procalcitonin 0.04 August 26, 2024: White count 7.2 hemoglobin 12.7 platelets 198 sodium 139 potassium 4.6 creatinine 0.74 Influenza type a type B RSV COVID-19: Not detected EKG tracing personally reviewed by me-normal sinus rhythm Chest x-ray film personally reviewed by me-left upper lobe opacity. Some other nodular opacities scattered. CT angio chest: More than 50 nodules throughout the lungs. Left upper lung masslike consolidation. 58 x 32 mm. Some nodules of central cavitation. Lymphadenopathy. Negative for PE Assessment plan: -Left upper lobe consolidation and multiple lung nodules. Strongly suspicious for metastatic disease. In a smoker. Seen by Dr. SANTOS from pulmonary. Plan for bronchoscopy tomorrow -Pneumonia suggest gram-negative organism given the clinical presentation of cough wheezing. Sputum production: Better Ceftriaxone. Zithromax-antibiotic completed -Alcohol use disorder Patient was drinking close to a gallon prior to getting admitted to [facility] where she is currently under rehab. Last drink was about 2 weeks ago -Essential hypertension Catapres. -Chronic nicotine dependence plus vaping Nicotine patch -Acute COPD exacerbation in a smoker DuoNeb. Nebulized Pulmicort -Anxiety depression, peds anxiety uncontrolled Trazodone. Wellbutrin XL Seen by psychiatry. Atarax added.-Will DC Ativan] -Full code Atarax anxiety. DC Ativan. Plan for bronchoscopy tomorrow. Discussed with savannah burgess. Past Medical History Past Medical History: Heart Failure, Fibromyalgia, Rheumatoid Arthritis (RA) Additional Past Medical History / Comment(s): endometriosis History of Any Multi-Drug Resistant Organisms: None Reported Past Surgical History: Section, Hernia Repair, Tubal Ligation Additional Past Surgical History / Comment(s): laproscopy Past Psychological History: Anxiety, Depression Past Alcohol Use History: Abuse, Daily Past Drug Use History: None Reported
--- NOTE | 2024-08-30 12:28 | P.PN ---
Subjective Progress Note Date: 08/30/24 This is a 49-year-old female patient who resides in [place] and has a history of alcoholism, hypertension, congestive heart failure, depression, fibromyalgia, rheumatoid arthritis not on treatment for nearly 20 years. She presented to the emergency room yesterday with a 1 month history of increasing shortness of breath cough and congestion. Some left-sided chest discomfort. She presented here from [facility] and had been there about 10 days. She does have chronic and ongoing tobacco dependence. Chest x-ray reveals a left superior perihilar consolidative opacity with additional nodular opacities throughout the lungs. CT angiogram ruled out pulmonary embolism. Left upper lung consolidation with scattered pulmonary nodules greater than 50 and mediastinal lymphadenopathy concerning for malignancy with diffuse metastatic disease. 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 Indeterminate left adrenal nodule. White count 7.2. Hemoglobin 12.7. Platelets 198. Sodium 136. Potassium 3.6. Bicarb 23. BUN 11. Creatinine 0.81. Glucose 223. Troponin negative x 1. Viral screen negative. She is seen today in consultation on the regular medical floor. She is currently laying flat in bed. Awake and alert in no acute distress. Maintaining good O2 saturations in the 90s on room air. She denies any history of cancer. Denies any weight loss. Denies any sick contacts. She was initiated on Rocephin and azithromycin. The patient is seen today August 28, 2024 in follow-up on the regular medical floor. She is currently sitting up in a chair at the bedside. Awake and alert in no acute distress. She is maintaining O2 saturations in the 90s on room air. Denies any worsening shortness of breath, cough or congestion. She has been afebrile. Hemodynamically stable. Her main complaint is that of anxiety. Blood culture revealing no growth. Urine culture revealed no growth. Procalcitonin negative at 0.04. Rheumatoid factor less than 15. CT scan of the abdomen and pelvis revealed no acute abnormalities. The patient is seen today August 29, 2024 in follow-up on the regular medical floor. She is currently sitting up in bed. Awake and alert in no acute distress. Continues to maintain good O2 saturations in the 90s on room air. She has normal staying at KVO. She remains on DuoNeb and elations, prednisone. Continued on Pulmicort. NicoDerm patch in place. Lovenox for DVT prophylaxis. Currently on ceftriaxone and azithromycin. Procalcitonin is negative at 0.04. Rheumatoid factor less than 15. JES negative. P ANCA, C ANCA's negative. Urine Legionella screen negative. Urine culture revealed no growth. Blood culture revealing no growth thus far. Sputum culture no growth thus far. Hemodynamically stable. Chest x-ray shows stable appearance of the left perihilar masslike density and multiple bilateral pulmonary nodules. The patient is seen today August 30, 2024 in follow-up on the regular medical floor. She is currently resting comfortably in bed. Maintaining good O2 saturation in the 90s on room air. She is afebrile. Hemodynamically stable. Blood urine and sputum culture revealed no growth. She is continued on DuoNeb and Pulmicort inhalations. Prednisone taper. NicoDerm patch in place. Lovenox for DVT prophylaxis. For bronchoscopy and BAL with possible biopsies today Objective - Vital Signs Vital signs: Vital Signs Temp 97.5 F L 08/30/24 08:00 Pulse 64 08/30/24 12:02 Resp 16 08/30/24 08:00 BP 146/93 08/30/24 08:00 Pulse Ox 97 08/30/24 08:00 FiO2 Intake & Output 08/29/24 08/30/24 08/30/24 18:59 06:59 18:59 Intake Total 2280 540 Balance 2280 540 Weight 66.681 kg Intake: Oral 2280 540 Other: Voiding Method Toilet # Voids 5 # Bowel Movements 1 - Exam GENERAL EXAM: Alert, 49-year-old female, resting in bed, on room air, comfortable in no apparent distress. HEAD: Normocephalic. EYES: Normal reaction of pupils, equal size. NOSE: Clear with pink turbinates. THROAT: No erythema or exudates. NECK: No masses, no JVD. CHEST: No chest wall deformity. LUNGS: Equal air entry with few scattered rhonchi. CVS: S1 and S2 normal with no audible murmur, regular rhythm. ABDOMEN: No hepatosplenomegaly, normal bowel sounds, no guarding or rigidity. SPINE: No scoliosis or deformity SKIN: No rashes CENTRAL NERVOUS SYSTEM: No focal deficits, tone is normal in all 4 extremities. EXTREMITIES: There is no peripheral edema. No clubbing, no cyanosis. Peripheral pulses are intact. - Labs CBC & Chem 7: 08/26/24 14:15 08/27/24 10:45 Labs: Microbiology - Last 24 Hours (Table) 08/28/24 19:55 Gram Stain - Final Sputum Sputum Culture - Final 08/26/24 16:58 Blood Culture - Preliminary Blood Assessment and Plan Assessment: Left-sided chest pain, shortness of breath and cough suspect secondary to left upper lung consolidation with scattered pulmonary nodules. Procalcitonin negative. Rheumatoid factor negative. JES negative. P-ANCA c-ANCA negative. Legionella urine antigen negative Chronic and ongoing tobacco dependence History of vaping Alcoholism, currently residing in [facility] History of rheumatoid arthritis, treated over 20 years ago without much improvement and she has not been on any medications since Fibromyalgia Depression History of congestive heart failure Plan: The patient was seen and evaluated Medications reviewed Currently stable and on room air Continue bronchodilators, steroids Bronchoscopy with BAL/biopsies today This patient was seen independently by the pulmonary nurse practitioner addressing pulmonary issues I have personally seen and examined the patient, performed the documentation and the assessment and plan as written. Number of minutes spent on the visit: 23 Dictation was produced using [employer] dictation software. Please excuse any grammatical, word or spelling errors.
[2024-08-30] MEDS: IV FLUID CONTINUATION 500 ML IV ONE (13:13)
[2024-08-30] MEDS ORDERED: LIDOCAINE 2% (PF) 20 MG/ML 5 ML VIAL ONE (13:17)
[2024-08-30] MEDS ORDERED: KETAMINE HCL IN 0.9 % NACL 50 MG/5 ML SYRINGE ONE (13:17)
[2024-08-30] MEDS ORDERED: MIDAZOLAM 2 MG/2 ML VIAL ONE (13:17)
[2024-08-30] MEDS ORDERED: PROPOFOL 10 MG/ML 20 ML VIAL IV ONE (13:17)
[2024-08-30] MEDS: LIDOCAINE 2% INJ 20 MG/ML INTRATRACH ONE ×2 (13:25)
--- NOTE | 2024-08-30 16:47 | P.PN ---
Subjective Progress Note Date: 08/30/24 No acute events. Reporting improvement in chest pain. Having mild productive cough. Plan for bronchoscopy today. Pt afebrile Objective - Vital Signs Vital signs: Vital Signs Temp 97.5 F L 08/30/24 08:00 Pulse 64 08/30/24 12:02 Resp 16 08/30/24 08:00 BP 146/93 08/30/24 08:00 Pulse Ox 97 08/30/24 08:00 FiO2 Intake & Output 08/29/24 08/30/24 08/30/24 18:59 06:59 18:59 Intake Total 2280 540 Balance 2280 540 Weight 66.681 kg Intake: Oral 2280 540 Other: Voiding Method Toilet # Voids 5 # Bowel Movements 1 - Labs CBC & Chem 7: 08/26/24 14:15 08/27/24 10:45 Labs: Microbiology - Last 24 Hours (Table) 08/28/24 19:55 Gram Stain - Final Sputum Sputum Culture - Final 08/26/24 16:58 Blood Culture - Preliminary Blood Assessment and Plan (1) Pneumonia Current Visit: Yes Status: Acute Priority: High Code(s): J18.9 - PNEUMONIA, UNSPECIFIED ORGANISM SNOMED Code(s): 394208233 (2) Pulmonary nodules Current Visit: Yes Status: Acute Priority: High Code(s): R91.8 - OTHER NONSPECIFIC ABNORMAL FINDING OF LUNG FIELD SNOMED Code(s): 341138561 Plan: Pulmonary nodules: The patient's imaging shows multiple lung nodules, and a dominant area in the left upper lobe. Images were personally reviewed. The nodules do appear to be solid, and there also appears to be a solid component in the dominant area in t he left upper lobe, with likely some surrounding postobstructive pneumonia and/or atelectasis extending to the periphery -The imaging results and implications were discussed with the patient. Given h er history, while benign etiologies such as rheumatoid lung disease, as well as multifocal organizing pneumonia are in the differential, malignancy is definitely a possibility. The patient has been seen by pulmonary medicine, and bronchoscopy with biopsy is scheduled for today. I am fully in agreement with proceeding with the same. -CT of the abdomen and pelvis showing no acute abnormality in the abdomen/pelvis. Nonspecific mildly prominent single left retroperitoneal para- aortic lymph node measuring 10 mm. Innumerable pulmonary nodules in the partially visualized lower lungs. -MRI brain showing no suspicious abnormalities to suggest metastatic disease. Pneumonia: -The patient was started on IV antibiotics, given that she does appear to have at least a component of pneumonia, as in the left upper lobe. -Abx completed. Continues on bronchodilators and steroids -Defer to the admitting service and pulmonary medicine for further treatment.
--- NOTE | 2024-08-30 17:43 | P.PN ---
Progress Note - Text Progress Note Date: 08/30/24 Chief Complaint: Cough This is a 49-year-old patient who follows with Dr. Ruddy Real. Chronic stable medical conditions include fibromyalgia, rheumatoid arthritis, endometriosis, anxiety depression, hypertension, GERD. Patient is currently at [facility] for last 10 days for alcohol rehab. About 3 weeks patient been having creasing cough. Some wheezing. Some pleuritic chest pain with coughing. Denies any fever or chills. Appetite is good. Has fair bowel movements. Patient also does vaping. Also notes some cigarettes. Prior to going to [facility] patient was close to drinking less than a gallon of vodka. Patient been getting dizzy and sometimes passing out at home. August 27: Seen by pulmonary. Planning for possible bronchoscopy for biopsy early next week. Breathing better.Tolerating some diet. CT abdomen pelvis nonspecific. Oral intake fair. August 28: Patient denies being anxious. Patient is on Wellbutrin. l. Some cough. No sputum anymore. Will consult psychiatry for uncontrolled anxiety. In the meantime patient to get Ativan 0.5 every 8 as needed. Awaiting decision from pulmonary regarding bronchoscopy with biopsy. August 29: Saw the patient this morning. Antibiotics discontinued by Dr. Santos. Plan for bronchoscopy tomorrow. Vistaril 25 mg 3 times daily as needed for anxiety. Will therefore DC Ativan. August 30: Saw the patient this morning. Breathing better. Later this afternoon patient underwent bronchoscopy. Currently results unknown. The Active Medications Acetaminophen (Acetaminophen Tab 325 Mg Tab) 650 mg PO Q4H PRN PRN Reason: Mild Pain or Fever > 100.5 Hydrocodone Bitart/Acetaminophen (Hydrocodone/Apap 5-325mg 1 Each Tab) 1 each PO Q6HR PRN PRN Reason: Moderate to Severe Pain (4-10) Last Admin: 08/30/24 16:35 Dose: 1 each Albuterol/Ipratropium (Ipratropium-Albuterol 3 Ml Neb) 3 ml INHALATION RT-Q2H PRN PRN Reason: Shortness Of Breath Or Wheezing Albuterol/Ipratropium (Ipratropium-Albuterol 3 Ml Neb) 3 ml INHALATION RT-QID [facility] Last Admin: 08/30/24 15:33 Dose: 3 ml Budesonide (Budesonide 1 Mg/2 Ml Nebu) 1 mg INHALATION RT-BID [facility] Last Admin: 08/30/24 08:13 Dose: 1 mg Bupropion HCl (Bupropion Xl 300 Mg Tab.Er.24h) 300 mg PO DAILY [facility] Last Admin: 08/30/24 08:32 Dose: 300 mg Clonidine (Clonidine Hcl 0.1 Mg Tab) 0.1 mg PO BID [facility] Last Admin: 08/30/24 08:32 Dose: 0.1 mg Enoxaparin Sodium (Enoxaparin 40 Mg/0.4 Ml Syringe) 40 mg SQ DAILY [facility] Last Admin: 08/30/24 08:32 Dose: 40 mg Hydroxyzine HCl (Hydroxyzine Hcl 25 Mg Tab) 25 mg PO TID PRN PRN Reason: Anxiety Last Admin: 08/30/24 10:04 Dose: 25 mg Hyoscyamine (Hyoscyamine Sulfate 0.125 Mg Tab) 0.125 mg PO QID PRN PRN Reason: withdrawl symptoms/cramps Melatonin (Melatonin 5 Mg Tablet) 10 mg PO HS [facility] Last Admin: 08/29/24 19:59 Dose: 10 mg Multivitamins (Multivitamins, Thera 1 Each Tab) 1 each PO DAILY [facility] Last Admin: 08/30/24 08:32 Dose: 1 each Naloxone HCl (Naloxone 0.4 Mg/Ml 1 Ml Vial) 0.2 mg IVP Q2M PRN PRN Reason: Opioid Reversal Nicotine (Nicotine 14mg/24hr Patch) 1 patch TRANSDERM DAILY@1600 [facility] Last Admin: 08/30/24 16:36 Dose: 1 patch Linaclotide [Linzess (] 290 Mcg Capsule) 290 mcg PO DAILY [facility] Last Admin: 08/30/24 08:32 Dose: Not Given Ondansetron HCl (Ondansetron 4 Mg Tab) 8 mg PO Q6H PRN PRN Reason: Nausea Pantoprazole Sodium (Pantoprazole 40 Mg Tablet) 40 mg PO AC-BRKFST [facility] Last Admin: 08/30/24 08:32 Dose: 40 mg Prednisone (Prednisone 20 Mg Tab) 40 mg PO DAILY [facility] Stop: 08/31/24 09:01 Last Admin: 08/30/24 08:32 Dose: 40 mg Senna/Docusate Sodium (Sennosides-Docusate Sodium 1 Each Tab) 2 each PO DAILY PRN PRN Reason: Constipation Last Admin: 08/30/24 08:36 Dose: 2 each Thiamine HCl (Thiamine 100 Mg Tab) 100 mg PO DAILY [facility] Last Admin: 08/30/24 08:32 Dose: 100 mg Social history: Patient is . Lives with her mother. Was drinking close to a gallon of vodka prior to getting admitted to rehab. Does vaping also smoke a few cig arettes. Physical examination: VITAL SIGNS: 98.3, 83, 16, 151 x 71, 94% room air GENERAL: BMI 24.9, resting in bed EYES: Pupils equal. Conjunctiva alyce l. HEENT: External appearance of nose and ears normal, oral cavity grossly normal. NECK: JVD not raised; masses not palpable. HEART: First and second heart sounds are normal; no edema. LUNGS: Respiratory rate increased l; diminished breath sounds, some wheezing ABDOMEN: Soft, nontender, liver spleen not palpable, no masses palpable. PSYCH: Alert and oriented x3; mood and affect anxious MUSCULOSKELETAL:No Clubbing/cyanosis;muscles-grossly intact INVESTIGATIONS, reviewed in the clinical context: August 27: Sodium 136 potassium 3.6 creatinine 0.81. Procalcitonin 0.04 August 26, 2024: White count 7.2 hemoglobin 12.7 platelets 198 sodium 139 potassium 4.6 creatinine 0.74 Influenza type a type B RSV COVID-19: Not detected EKG tracing personally reviewed by me-normal sinus rhythm Chest x-ray film personally reviewed by me-left upper lobe opacity. Some other nodular opacities scattered. CT angio chest: More than 50 nodules throughout the lungs. Left upper lung masslike consolidation. 58 x 32 mm. Some nodules of central cavitation. Lymphadenopathy. Negative for PE Assessment plan: -Left upper lobe consolidation and multiple lung nodules. Strongly suspicious for metastatic disease. In a smoker. Seen by Dr. SANTOS from pulmonary. Bronchoscopy done today. Formal results pending -Pneumonia suggest gram-negative organism given the clinical presentation of cough wheezing. Sputum production: Better Ceftriaxone. Zithromax-antibiotic completed -Alcohol use disorder Patient was drinking close to a gallon prior to getting admitted to [facility] where she is currently under rehab. Last drink was about 2 weeks ago -Essential hypertension Catapres. -Chronic nicotine dependence plus vaping Nicotine patch -Acute COPD exacerbation in a smoker DuoNeb. Nebulized Pulmicort -Anxiety depression, peds anxiety uncontrolled Trazodone. Wellbutrin XL Seen by psychiatry. Atarax added.-Will DC Ativan] -Full code Patient had bronchoscopy today. Medication to continue. Hopefully patient can be discharged tomorrow with follow-up outpatient. Past Medical History Past Medical History: Heart Failure, Fibromyalgia, Rheumatoid Arthritis (RA) Additional Past Medical History / Comment(s): endometriosis History of Any Multi-Drug Resistant Organisms: None Reported Past Surgical History: Section, Hernia Repair, Tubal Ligation Additional Past Surgical History / Comment(s): laproscopy Past Psychological History: Anxiety, Depression Past Alcohol Use History: Abuse, Daily Past Drug Use History: None Reported
--- NOTE | 2024-08-30 20:49 | PCN ---
PROCEDURE NOTE PROCEDURES: Bronchoscopy, airway examination, therapeutic lavage, BAL left upper lobe, BAL right middle lobe, brushes left upper lobe. PREOPERATIVE DIAGNOSIS: Cancer versus infection. POSTOPERATIVE DIAGNOSIS: Cancer versus infection. PIGSKIN TRIMMER: Kristin Burt. LOCATION: The patient's procedure was done in room #2 [facility]. ANESTHESIA PROVIDED: Monitored anesthesia care. PROCEDURE IN DETAIL: After the patient was adequately sedated and being fully monitored, the bronchoscope was inserted through the right nostril. It passed through the right nasopharynx into the oropharynx. The hypopharynx was identified. The hypopharyngeal structures, including anterior commissure, true cords, false cords, arytenoids, piriform sinuses right and left, vallecula, and epiglottis, all appeared relatively normal. The glottic opening was topicalized, and the bronchoscope was pushed through the glottic opening into the trachea. The trachea was normal. There was some blood in the trachea, coming from above, likely from the epistaxis. The tracheal liz was sharp. The right upper lobe and its 3 segments, right middle lobe and its 2 segments, and right lower lobe and its 5 segments, all appeared relatively normal. On the left side, the left lower lobe and its 4 segments appeared normal. The abnormality is primarily the one in her left upper lobe. The mucosa appeared to be a little abnormal in appearance. It was a bit heaped. The mucosa was a little erythematous. There was no distinct mass or lesion. The openings to the left upper lobe proper and lingula were a bit narrowed. We did brushes in the left upper lobe. We also did BAL, left upper lobe. We finally did a BAL in the right middle lobe. The patient tolerated the procedure well. There was no immediate complication. The bronchoscope was withdrawn. The patient will be recovered and transferred back to her room. MMODL / IJN: [id number] /
[2024-08-31 07:33] VITALS: BP 153/91; RESP 16; TEMP 98.3
[2024-08-31 11:40] VITALS: PULSE 74
--- NOTE | 2024-08-31 15:00 | P.PN ---
Subjective Progress Note Date: 08/31/24 This is a 49-year-old female patient who resides in [place] and has a history of alcoholism, hypertension, congestive heart failure, depression, fibromyalgia, rheumatoid arthritis not on treatment for nearly 20 years. She presented to the emergency room yesterday with a 1 month history of increasing shortness of breath cough and congestion. Some left-sided chest discomfort. She presented here from [facility] and had been there about 10 days. She does have chronic and ongoing tobacco dependence. Chest x-ray reveals a left superior perihilar consolidative opacity with additional nodular opacities throughout the lungs. CT angiogram ruled out pulmonary embolism. Left upper lung consolidation with scattered pulmonary nodules greater than 50 and mediastinal lymphadenopathy concerning for malignancy with diffuse metastatic disease. 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 Indeterminate left adrenal nodule. White count 7.2. Hemoglobin 12.7. Platelets 198. Sodium 136. Potassium 3.6. Bicarb 23. BUN 11. Creatinine 0.81. Glucose 223. Troponin negative x 1. Viral screen negative. She is seen today in consultation on the regular medical floor. She is currently laying flat in bed. Awake and alert in no acute distress. Maintaining good O2 saturations in the 90s on room air. She denies any history of cancer. Denies any weight loss. Denies any sick contacts. She was initiated on Rocephin and azithromycin. The patient is seen today August 28, 2024 in follow-up on the regular medical floor. She is currently sitting up in a chair at the bedside. Awake and alert in no acute distress. She is maintaining O2 saturations in the 90s on room air. Denies any worsening shortness of breath, cough or congestion. She has been afebrile. Hemodynamically stable. Her main complaint is that of anxiety. Blood culture revealing no growth. Urine culture revealed no growth. Procalcitonin negative at 0.04. Rheumatoid factor less than 15. CT scan of the abdomen and pelvis revealed no acute abnormalities. The patient is seen today August 29, 2024 in follow-up on the regular medical floor. She is currently sitting up in bed. Awake and alert in no acute distress. Continues to maintain good O2 saturations in the 90s on room air. She has normal staying at KVO. She remains on DuoNeb and elations, prednisone. Continued on Pulmicort. NicoDerm patch in place. Lovenox for DVT prophylaxis. Currently on ceftriaxone and azithromycin. Procalcitonin is negative at 0.04. Rheumatoid factor less than 15. JES negative. P ANCA, C ANCA's negative. Urine Legionella screen negative. Urine culture revealed no growth. Blood culture revealing no growth thus far. Sputum culture no growth thus far. Hemodynamically stable. Chest x-ray shows stable appearance of the left perihilar masslike density and multiple bilateral pulmonary nodules. The patient is seen today August 30, 2024 in follow-up on the regular medical floor. She is currently resting comfortably in bed. Maintaining good O2 saturation in the 90s on room air. She is afebrile. Hemodynamically stable. Blood urine and sputum culture revealed no growth. She is continued on DuoNeb and Pulmicort inhalations. Prednisone taper. NicoDerm patch in place. Lovenox for DVT prophylaxis. For bronchoscopy and BAL with possible biopsies today The patient is seen today August 31, 2024 in follow-up on the regular medical floor. She is awake and alert in no acute distress. Sitting up in a chair at the bedside. No worsening shortness of breath, cough or congestion. Continues to maintain good O2 saturations in the 90s on room air. She is feeling back to her baseline. She is anxious to return to [facility]. She is continued on DuoNeb and Pulmicort inhalations. Prednisone taper. NicoDerm patch in place. Lovenox for DVT prophylaxis. Objective - Vital Signs Vital signs: Vital Signs Temp 98.3 F 08/31/24 07:15 Pulse 74 08/31/24 11:40 Resp 16 08/31/24 07:15 BP 153/91 08/31/24 07:15 Pulse Ox 95 08/31/24 07:15 FiO2 Intake & Output 08/30/24 08/31/24 08/31/24 18:59 06:59 18:59 Intake Total 2740 480 Balance 2740 480 Weight 67.3 kg Intake: IV 100 Oral 2640 480 Other: # Voids 5 2 # Bowel Movements 1 - Exam GENERAL EXAM: Alert, 49-year-old female, resting in bed, on room air, comfortable in no apparent distress. HEAD: Normocephalic. EYES: Normal reaction of pupils, equal size. NOSE: Clear with pink turbinates. THROAT: No erythema or exudates. NECK: No masses, no JVD. CHEST: No chest wall deformity. LUNGS: Equal air entry with few scattered rhonchi. CVS: S1 and S2 normal with no audible murmur, regular rhythm. ABDOMEN: No hepatosplenomegaly, normal bowel sounds, no guarding or rigidity. SPINE: No scoliosis or deformity SKIN: No rashes CENTRAL NERVOUS SYSTEM: No focal deficits, tone is normal in all 4 extremities. EXTREMITIES: There is no peripheral edema. No clubbing, no cyanosis. Peripheral pulses are intact. - Labs CBC & Chem 7: 08/26/24 14:15 08/27/24 10:45 Assessment and Plan Assessment: Left-sided chest pain, shortness of breath and cough suspect secondary to left upper lung consolidation with scattered pulmonary nodules. Procalcitonin negati ve. Rheumatoid factor negative. JES negative. P-ANCA c-ANCA negative. Legionella urine antigen negative Chronic and ongoing tobacco dependence History of vaping Alcoholism, currently residing in [facility] History of rheumatoid arthritis, treated over 20 years ago without much improvement and she has not been on any medications since Fibromyalgia Depression History of congestive heart failure Plan: The patient was seen and evaluated Medications reviewed Currently stable and on room air Continue bronchodilators, steroids Bronchial wash cultures are pending Cleared for discharge back to [facility] Follow-up in our office in 1 week This patient was seen independently by the pulmonary nurse practitioner addressing pulmonary issues I have personally seen and examined the patient, performed the documentation and the assessment and plan as written. Number of minutes spent on the visit: 24 Dictation was produced using Graph[employer] dictation software. Please excuse any grammatical, word or spelling errors.
--- NOTE | 2024-08-31 15:29 | P.PN ---
Subjective Progress Note Date: 08/31/24 No acute events. S/p bronch. No mass or lesions noted, cytology pending. Reporting improvement in chest pain. Plan for discharge today to [facility] Objective - Vital Signs Vital signs: Vital Signs Temp 98.3 F 08/31/24 07:15 Pulse 74 08/31/24 11:40 Resp 16 08/31/24 07:15 BP 153/91 08/31/24 07:15 Pulse Ox 95 08/31/24 07:15 FiO2 Intake & Output 08/30/24 08/31/24 08/31/24 18:59 06:59 18:59 Intake Total 2740 480 Balance 2740 480 Weight 67.3 kg Intake: IV 100 Oral 2640 480 Other: # Voids 5 2 # Bowel Movements 1 - Constitutional General appearance: Present: average body habitus, no acute distress - EENT Eyes: Present: anicteric sclerae, EOMI ENT: Present: hearing grossly normal - Respiratory Details: breathing is even and unlabored - Cardiovascular Details: skin warm and dry - Integumentary Integumentary: Absent: cyanotic - Psychiatric Psychiatric: Present: A&O x's 3 - Labs CBC & Chem 7: 08/26/24 14:15 08/27/24 10:45 Labs: Microbiology - Last 24 Hours (Table) 08/28/24 19:55 Gram Stain - Final Sputum Sputum Culture - Final Assessment and Plan (1) Pneumonia Status: Acute Priority: High Code(s): J18.9 - PNEUMONIA, UNSPECIFIED ORGANISM SNOMED Code(s): 079087555 (2) Pulmonary nodules Status: Acute Priority: High Code(s): R91.8 - OTHER NONSPECIFIC ABNORMAL FINDING OF LUNG FIELD SNOMED Code(s): 413917850 Plan: Pulmonary nodules: The patient's imaging shows multiple lung nodules, and a dominant area in the left upper lobe. Images were personally reviewed. The nodules do appear to be solid, and there also appears to be a solid component in the dominant area in the left upper lobe, with likely some surrounding postobstructive pneumonia and/or atelectasis extending to the periphery -The imaging results and implications were discussed with the patient. Given her history, while benign etiologies such as rheumatoid lung disease, as well as multifocal organizing pneumonia are in the differential, malignancy is definitely a possibility. The patient has been seen by pulmonary medicine, and bronchoscopy with biopsy is scheduled for today. I am fully in agreement with proceeding with the same. -CT of the abdomen and pelvis showing no acute abnormality in the abdomen/pelv is. Nonspecific mildly prominent single left retroperitoneal para-aortic lymph node measuring 10 mm. Innumerable pulmonary nodules in the partially visualized lower lungs. -MRI brain showing no suspicious abnormalities to suggest metastatic disease. -S/p bronch. No mass or lesions noted, cytology pending. Will f/u on cytology. Pulmonology planning clinic f/u in 1 week Pneumonia: -The patient was started on IV antibiotics, given that she does appear to have at least a component of pneumonia, as in the left upper lobe. -Abx completed. Continues on bronchodilators and steroids -Defer to the admitting service and pulmonary medicine for further treatment. Pt cleared for discharge from hem/onc standpoint, once cleared by admitting service and other consulted medical specialities
--- NOTE | 2024-08-31 18:16 | P.DS ---
Providers Date of admission: 08/26/24 16:33 Expected date of discharge: 08/31/24 Attending physician: Homero Celaya Consults: 08/26/24 16:33 Consult Physician Routine Consulting Provider: Serg Santos Consult Reason/Comments: Multiple pulmonary nodules Do you want consulting provider notified?: Yes Consult Physician Routine Consulting Provider: Brian Serrato Consult Reason/Comments: Pulmonary nodules Do you want consulting provider notified?: Yes 08/28/24 14:52 Consult Physician Routine Consulting Provider: Psychiatry - [facility] Consult Reason/Comments: Uncontrolled anxiety Do you want consulting provider notified?: Already Contacted Primary care physician: [facility] Course: Chief Complaint: Cough This is a 49-year-old patient who follows with Dr. Ruddy Real. Chronic stable medical conditions include fibromyalgia, rheumatoid arthritis, endometriosis, anxiety depression, hypertension, GERD. Patient is currently at [facility] for last 10 days for alcohol rehab. About 3 weeks patient been having creasing cough. Some wheezing. Some pleuritic chest pain with coughing. Denies any fever or chills. Appetite is good. Has fair bowel movements. Patient also does vaping. Also notes some cigarettes. Prior to going to [facility] patient was close to drinking less than a gallon of vodka. Patient been getting dizzy and sometimes passing out at home. August 27: Seen by pulmonary. Planning for possible bronchoscopy for biopsy early next week. Breathing better.Tolerating some diet. CT abdomen pelvis nonspecific. Oral intake fair. August 28: Patient denies being anxious. Patient is on Wellbutrin. l. Some cough. No sputum anymore. Will consult psychiatry for uncontrolled anxiety. I n the meantime patient to get Ativan 0.5 every 8 as needed. Awaiting decision from pulmonary regarding bronchoscopy with biopsy. August 29: Saw the patient this morning. Antibiotics discontinued by Dr. Santos. Plan for bronchoscopy tomorrow. Vistaril 25 mg 3 times daily as needed for anxiety. Will therefore DC Ativan. August 30: Saw the patient this morning. Breathing better. Later this afternoon patient underwent bronchoscopy. Currently results unknown. August 31: Discussed with patient importance of stopping smoking. Alternatives discussed. Medications reviewed. Brushing results from the bronchoscopy are pending. Patient follow-up with Dr. SANTOS outpatient. Discussion and discharge planning more than 35 minutes The Social history: Patient is . Lives with her mother. Was drinking close to a gallon of vodka prior to getting admitted to rehab. Does vaping also smoke a few cigarettes. Physical examination: VITAL SIGNS: 98.3, 64, 16, 153/91, 95% room air EYES: Pupils equal. Conjunctiva alyce l. HEENT: External appearance of nose and ears normal, oral cavity grossly normal. NECK: JVD not raised; masses not palpable. HEART: First and second heart sounds are normal; no edema. LUNGS: Respiratory rate i normal l; better air entry ABDOMEN: Soft, nontender, liver spleen not palpable, no masses palpable. PSYCH: Alert and oriented x3; mood and affect anxious MUSCULOSKELETAL:No Clubbing/cyanosis;muscles-grossly intact INVESTIGATIONS, reviewed in the clinical context: Urine Legionella antigen negative August 27: Sodium 136 potassium 3.6 creatinine 0.81. Procalcitonin 0.04 August 26, 2024: White count 7.2 hemoglobin 12.7 platelets 198 sodium 139 potassium 4.6 creatinine 0.74 Influenza type a type B RSV COVID-19: Not detected EKG tracing personally reviewed by me-normal sinus rhythm Chest x-ray film personally reviewed by me-left upper lobe opacity. Some other nodular opacities scattered. CT angio chest: More than 50 nodules throughout the lungs. Left upper lung masslike consolidation. 58 x 32 mm. Some nodules of central cavitation. Lymphadenopathy. Negative for PE Assessment plan: -Left upper lobe consolidation and multiple lung nodules. Strongly suspicious for metastatic disease. In a smoker. Seen by Dr. SANTOS from pulmonary. Bronchoscopy done by Dr. SANTOS: Results pending Follow-up outpatient -Pneumonia suggest gram-negative organism given the clinical presentation of cough wheezing. Sputum production: Better Ceftriaxone. Zithromax-antibiotic completed -Alcohol use disorder Patient was drinking close to a gallon prior to getting admitted to [facility] where she is currently under rehab. Last drink was about 2 weeks ago -Essential hypertension Catapres. -Chronic nicotine dependence plus vaping Nicotine patch -Acute COPD exacerbation in a smoker DuoNeb. Nebulized Pulmicort Discharged on albuterol as needed and Symbicort -Anxiety depression, peds anxiety uncontrolled Trazodone. Wellbutrin XL Seen by psychiatry. Atarax added.-Will DC Ativan] -Full code Disposition: Home Past Medical History Past Medical History: Heart Failure, Fibromyalgia, Rheumatoid Arthritis (RA) Additional Past Medical History / Comment(s): endometriosis History of Any Multi-Drug Resistant Organisms: None Reported Past Surgical History: Section, Hernia Repair, Tubal Ligation Additional Past Surgical History / Comment(s): laproscopy Past Psychological History: Anxiety, Depression Past Alcohol Use History: Abuse, Daily Past Drug Use History: None Reported Plan - Discharge Summary Discharge Rx Participant: Yes New Discharge Prescriptions: New hydrOXYzine HCL [Atarax] 25 mg PO TID PRN #60 tab PRN Reason: Anxiety Nicotine 14Mg/24Hr Patch [Habitrol] 1 patch TRANSDERM DAILY@1600 #30 patch Budesonide/Formoterol Fumarate [Symbicort 160-4.5 Mcg Inhaler] 1 puff INHALATION BID #10.2 gm Continue Multivitamins, Thera [Multivitamin (formulary)] 1 tab PO DAILY cloNIDine HCL 0.1 mg PO BID buPROPion XL [Wellbutrin XL] 300 mg PO DAILY Ibuprofen [Motrin Ib] 600 mg PO Q6H PRN PRN Reason: Pain Or Fever > 100.5 Hyoscyamine Sulfate [Levsin] 0.125 mg PO QID PRN PRN Reason: withdrawl symptoms/cramps Acetaminophen [Tylenol] 650 mg PO Q4H PRN MDD 2,600mg PRN Reason: Pain Or Fever > 100.5 cloNIDine HCL [Catapres] 0.1 - 0.3 mg PO Q4H PRN PRN Reason: BP >160/100 Sennosides/Docusate Sodium [Senna Plus 8.6-50 mg Softgel] 2 tab PO DAILY PRN PRN Reason: Constipation Pantoprazole [Protonix] 40 mg PO DAILY Linaclotide [Linzess] 290 mcg PO DAILY Fluticasone Nasal Grayson [Flonase Nasal Grayson] 1 spray EA NOSTRIL DAILY Thiamine [Vitamin B-1] 100 mg PO DAILY Melatonin 10 mg PO HS Loperamide HCl [Imodium A-D] 4 mg PO QID PRN MDD 16mg PRN Reason: Loose Stool Albuterol Nebulized [Ventolin Nebulized] 2.5 mg INHALATION RT-Q4H PRN PRN Reason: Shortness Of Breath ondansetron HCL [Zofran] 8 mg PO Q6H PRN PRN Reason: Nausea Discontinued Chlorpheniramine Maleate [Chlor-Trimeton] 4 mg PO Q4H PRN PRN Reason: WITHDRAWL SYMPTOMS Furosemide [Lasix] 20 mg PO DAILY Amoxicillin 500 mg PO TID Calcium Phos/D3/Magnesium/Zinc [Vdszygw-Abw-Lbsp-Vitamin D3] 1 tab PO TID PRN PRN Reason: WITHDRAWL SYMPTOMS Potassium Chloride ER [K-Dur 10] 10 meq PO DAILY guaiFENesin [guaiFENesin Oral Solution] 200 mg PO Q4H PRN PRN Reason: Congestion/COUGH traZODone HCL [Desyrel] 50 - 150 mg PO HS PRN PRN Reason: sleep Discharge Medication List Multivitamins, Thera [Multivitamin (formulary)] 1 tab PO DAILY 12/28/18 [History] Acetaminophen [Tylenol] 650 mg PO Q4H PRN MDD 2,600mg 08/26/24 [History] Albuterol Nebulized [Ventolin Nebulized] 2.5 mg INHALATION RT-Q4H PRN 08/26/24 [History] Fluticasone Nasal Grayson [Flonase Nasal Grayson] 1 spray EA NOSTRIL DAILY 08/26/24 [History] Hyoscyamine Sulfate [Levsin] 0.125 mg PO QID PRN 08/26/24 [History] Ibuprofen [Motrin Ib] 600 mg PO Q6H PRN 08/26/24 [History] Linaclotide [Linzess] 290 mcg PO DAILY 08/26/24 [History] Loperamide HCl [Imodium A-D] 4 mg PO QID PRN MDD 16mg 08/26/24 [History] Melatonin 10 mg PO HS 08/26/24 [History] Pantoprazole [Protonix] 40 mg PO DAILY 08/26/24 [History] Sennosides/Docusate Sodium [Senna Plus 8.6-50 mg Softgel] 2 tab PO DAILY PRN 08/26/24 [History] Thiamine [Vitamin B-1] 100 mg PO DAILY 08/26/24 [History] buPROPion XL [Wellbutrin XL] 300 mg PO DAILY 08/26/24 [History] cloNIDine HCL 0.1 mg PO BID 08/26/24 [History] cloNIDine HCL [Catapres] 0.1 - 0.3 mg PO Q4H PRN 08/26/24 [History] ondansetron HCL [Zofran] 8 mg PO Q6H PRN 08/26/24 [History] Budesonide/Formoterol Fumarate [Symbicort 160-4.5 Mcg Inhaler] 1 puff INHALATION BID #10.2 gm 08/31/24 [Rx] Nicotine 14Mg/24Hr Patch [Habitrol] 1 patch TRANSDERM DAILY@1600 #30 patch 08/31/24 [Rx] hydrOXYzine HCL [Atarax] 25 mg PO TID PRN #60 tab 08/31/24 [Rx] Follow up Appointment(s)/Referral(s): Brian Serrato [STAFF PHYSICIAN] - 2 Weeks Ruddy Real MD [Primary Care Provider] - 1-2 days Serg Santos DO [Doctor of Osteopathic Medicine] - 1 Week Patient Instructions/Handouts: *Surgery [facility] - Bronchoscopy Discharge Instructions, Nicotine (Absorbed through the skin), Hydroxyzine (By mouth), Budesonide/Formoterol (By breathing), Pulmonary Nodules (DC), Pneumonia (DC) Discharge Disposition: HOME SELF-CARE
[2024-09-01 03:57] LABS: Appearance,BF Bloody (Clear); RBC, Body Fluid 46313 /UL (0-2000)
[2024-09-01 09:45] LABS: Nucleated Cells, Body Fluid 0 /UL
[2024-09-03 19:20] LABS: Histoplasma Abs by Mycelia, CF <1:8 (<1:8)
== END 2024-08-31 12:55 | disposition home or self-care (01) | DRG 140 ==
LOC: EC 13:49 → 4SSUR 16:33 → 5NMEDONC 16:58
PROVIDERS: ADMIT Hospitalist; ATTEND Hospitalist
PROC: 0BD88ZX Extraction of Left Upper Lobe Bronchus, Via Natural or Artificial Opening Endoscopic, Diagnostic (ICD-10-PCS; 2024-08-30)
PROC: 0B9D8ZX Drainage of Right Middle Lung Lobe, Via Natural or Artificial Opening Endoscopic, Diagnostic (ICD-10-PCS; principal; 2024-08-30 12:30)
PROC: 0B9G8ZX Drainage of Left Upper Lung Lobe, Via Natural or Artificial Opening Endoscopic, Diagnostic (ICD-10-PCS; 2024-08-30 12:30)
DX: J44.0 Chronic obstructive pulmonary disease with (acute) lower respiratory infection (principal); J15.69 Pneumonia due to other Gram-negative bacteria; E27.8 Other specified disorders of adrenal gland; M05.10 Rheumatoid lung disease with rheumatoid arthritis of unspecified site; I11.0 Hypertensive heart disease with heart failure; I50.9 Heart failure, unspecified; J44.1 Chronic obstructive pulmonary disease with (acute) exacerbation; F10.11 Alcohol abuse, in remission; F32.A Depression, unspecified; R04.0 Epistaxis; F17.210 Nicotine dependence, cigarettes, uncomplicated; F17.290 Nicotine dependence, other tobacco product, uncomplicated; F41.9 Anxiety disorder, unspecified; M79.7 Fibromyalgia; R59.0 Localized enlarged lymph nodes; K21.9 Gastro-esophageal reflux disease without esophagitis; Z79.899 Other long term (current) drug therapy; Z56.0 Unemployment, unspecified
CPT/HCPCS: 31623; 31624; 36415; 70553; 71045; 71046; 71275; 74177; 80053; 81025; 83605; 83735; 84145; 84484; 85025; 85379; 85610; 85730; 86038; 86041; 86255; 86431; 86606; 86612; 86698; 87040; 87070; 87077; 87086; 87102; 87116; 87186; 87205; 87206; 87449; 87496; 87498; 87502; 87529; 87634; 87635; 87636; 87798; 88104; 88108; 88305; 88341; 88342; 89050; 93005; 94640; 96365; 96366; 96372; 96375; 99285

== ENCOUNTER 2024-09-27 11:47 | Inpatient (IN) | payer OTHER ==
[2024-09-27] MEDS: methylPREDNISolone SOD SUCCI 125 MG/2 ML VIAL IV STA (13:14)
[2024-09-27] MEDS: MAGNESIUM SULFATE-D5W PMX 1 GM in DEXTROSE/WATER 1 100ML.BAG IVPB STA (13:14)
[2024-09-27] MEDS: SODIUM CHLORIDE 0.9% 1,000 ML IV STA (13:14)
[2024-09-27] MEDS: IPRATROPIUM-ALBUTEROL 3 ML NEB INHALATION STA (13:27)
[2024-09-27 13:35] LABS: Basophils % (A) 0 %; Eosinophils # (A) 0.4 k/uL (0-0.7); Eosinophils % (A) 4 %; HCT 44.2 % (34.0-46.0); HGB 15.3 gm/dL (11.4-16.0); Lymphocytes # (A) 2.4 k/uL (1.0-4.8); Lymphocytes % (A) 22 %; MCH 31.2 pg (25.0-35.0); MCHC 34.6 g/dL (31.0-37.0); MCV 90.3 fL (80.0-100.0); Mean Platelet Volume 8.5; Monocytes # (A) 0.6 k/uL (0-1.0); Monocytes % (A) 6 %; Neutrophils # (A) 7.2 k/uL (1.3-7.7); Neutrophils % (A) 67 %; Platelet Count 238 k/uL (150-450); RDW 14.1 % (11.5-15.5); WBC 10.8 k/uL (3.8-10.6)
[2024-09-27 13:55] LABS: ALT 10 U/L (4-34); AST 14 U/L (14-36); African American GFR (CKD) >90 (>60 ml/min/1.73 sqM); Albumin 3.6 g/dL (3.5-5.0); Alkaline Phosphatase 59 U/L (38-126); Anion Gap 7 mmol/L; Blood Urea Nitrogen 11 mg/dL (7-17); Carbon Dioxide 25 mmol/L (22-30); Chloride 103 mmol/L (98-107); Glucose 95 mg/dL (74-99); Magnesium 1.9 mg/dL (1.6-2.3); Non-African American GFR(CKD) >90 (>60 ml/min/1.73 sqM); Potassium 4.3 mmol/L (3.5-5.1); Sodium 135 mmol/L (137-145); Total Bilirubin 0.3 mg/dL (0.2-1.3); Total Protein 6.5 g/dL (6.3-8.2)
--- NOTE | 2024-09-27 13:59 | XR ---
Chest, 2 view. HISTORY: Difficulty breathing COMPARISON: 08/29/2024 TECHNIQUE: PA and lateral views the chest are obtained. FINDINGS: There has been interval development of a large left pleural effusion. There are stable diffuse fluffy airspace consolidations throughout the right lung. There is no right lung pleural effusion. There is no pneumothorax. The osseous structures are intact. IMPRESSION: Marked cardiopulmonary disease with marked interval worsening in the left hemithorax as described abo ve. [facility], Workstation: JOHN PAUL, 09/27/2024 1:57 PM
[2024-09-27 14:01] LABS: NT-Pro-B-Type Natriuretic Pept 133 pg/mL
[2024-09-27 14:20] LABS: INR 0.9 (<1.2); Partial Thromboplastin Time 22.3 sec (22.0-30.0); Prothrombin Time 10.5 sec (10.0-12.5)
--- NOTE | 2024-09-27 15:02 | CT ---
EXAMINATION TYPE: CT chest angio for PE DATE OF EXAM: 09/27/2024 Comparison: 08/26/2024 CLINICAL INDICATION: Female, 49 years old with history of dyspnea; PHH, GRAZYNA, SOB or PAIN TECHNIQUE: Ct angiogram of the chest performed with with IV Contrast, patient injected with 100 mL of Isovue 370 . MIP images are created and reviewed. CT DLP: 308.[address] CTDI: mGy Automated exposure control for dose reduction was used. FINDINGS: There are no filling defects within the pulmonary arterial circulation to suggest pulmonary embolism. As on the prior study there are diffuse innumerable pulmonary nodules consistent with metastatic dise ase. There has been interval increase in the degree of lung consolidation in the left lung now including a portion of the left lower lobe. There is been interval development of a large left pleural effusion. There is stable marked bilateral hilar lymphadenopathy. There is a right hilar lymph node that measur es 3.8 cm in size. There is a 1.6 cm left hilar lymph node. There is an enlarged 18 mm subcarinal lym ph node. Limited scanning the upper abdomen reveals no gross abnormality. No focal osseous lesions are seen. IMPRESSION: 1. No evidence of pulmonary embolism. 2. Interval increase in left lung consolidation. 3. Interval development of a large left pleural effusion. 4. Persistent bilateral diffuse innumerable pulmonary nodules. 5. Persistent mediastinal and bilateral hilar lymphadenopathy. [facility], Workstation: JOHN PAUL, 09/27/2024 3:00 PM
[2024-09-27] MEDS ORDERED: NALOXONE 0.4 MG/ML 1 ML VIAL IV PRN (15:20)
[2024-09-27] MEDS ORDERED: PNEUMONIA PROTOCOL UTILIZED 1 EACH MISC PO PRN (15:36)
[2024-09-27] MEDS ORDERED: IPRATROPIUM-ALBUTEROL 3 ML NEB INHALATION PRN (15:36)
--- NOTE | 2024-09-27 15:36 | ED ---
General Adult HPI - General Chief complaint: Shortness of Breath Stated complaint: SOB Time Seen by Provider: 09/27/24 12:20 Source: patient, RN notes reviewed, old records reviewed Mode of arrival: wheelchair Limitations: no limitations - History of Present Illness Initial comments: Patient is a 49-year-old female who was sent over by Dr. Santos for evaluation for shortness of breath. Patient has a history of tobacco use. Recently had an admission last month and was diagnosed with pneumonia and eventually discharged home. Found to have either metastatic disease versus possible pneumonia at that time. States that since that time she has been having progressively worse symptoms. Was hypoxic at Dr. Wilkinson's office with increased work of breathing and he sent her here for further evaluation. Patient is maintaining though 90% on 2 to 3 L nasal cannula oxygen. Vitals otherwise within acceptable limits. Denies any significant cough that is productive but states she has been having a nonproductive cough since discharge as well as worsening shortness of breath. Presents for further evaluation at this time. Denies any chest pain or chest discomfort. Denies any fevers or sick contacts. - Related Data Home Medications Medication Instructions Recorded Confirmed Fluticasone Nasal [place] [Flonase 1 spray EA NOSTRIL DAILY 08/26/24 09/27/24 Nasal [place]] Linaclotide [Linzess] 290 mcg PO DAILY 08/26/24 09/27/24 Pantoprazole [Protonix] 40 mg PO DAILY 08/26/24 09/27/24 Sennosides/Docusate Sodium [Senna 1 tab PO BID PRN 08/26/24 09/27/24 Plus 8.6-50 mg Softgel] buPROPion XL [Wellbutrin XL] 300 mg PO DAILY 08/26/24 09/27/24 cloNIDine HCL 0.1 mg PO BID 08/26/24 09/27/24 Budesonide/Formoterol Fumarate 1 puff INHALATION RT-BID 09/27/24 09/27/24 [Symbicort 160-4.5 Mcg Inhaler] Furosemide [Lasix] 20 mg PO DAILY 09/27/24 09/27/24 Nicotine 14Mg/24Hr Patch [Habitrol] 1 patch TRANSDERM DAILY 09/27/24 09/27/24 Potassium Chloride ER [K-Dur 10] 10 meq PO DAILY 09/27/24 09/27/24 guaiFENesin [Mucinex] 1,200 mg PO Q12H 09/27/24 09/27/24 Allergies Allergy/AdvReac Type Severity Reaction Status Date / Time latex Allergy Rash/Hives Verified 09/27/24 13:58 Review of Systems ROS Statement: Those systems with pertinent positive or pertinent negative responses have been documented in the HPI. Review of Systems: CONST: Denies fever EYES: Denies blurry vision ENT: Denies nasal congestion C/V: Denies Chest pain RESP: Endorses shortness of breath GI: Denies abdominal pain : Denies dysuria SKIN: Denies rash. MSK: Denies joint pain. NEURO: Denies headache ROS Other: All systems not noted in ROS Statement are negative. Past Medical History Past Medical History: Heart Failure, Fibromyalgia, Rheumatoid Arthritis (RA) Additional Past Medical History / Comment(s): endometriosis History of Any Multi-Drug Resistant Organisms: None Reported Past Surgical History: Section, Hernia Repair, Tubal Ligation Additional Past Surgical History / Comment(s): laproscopy Past Psychological History: Anxiety, Depression Smoking Status: Current every day smoker Past Alcohol Use History: Abuse, Daily Past Drug Use History: None Reported - Past Family History Mother Family Medical History: Hypertension Father Family Medical History: COPD General Exam - General Exam Comments Initial Comments: General: Appears in mild respiratory distress. HEAD: Normal with no signs of head trauma. EYES: PERRLA, EOMI, conjunctiva normal, no discharge. ENT: Hearing grossly intact, normal oropharynx. RESPIRATORY: Decreased breath sounds on the left lung field. Wheezing on the right lung field. Hypoxic on room air. C/V: Regular rate and rhythm. S1 and S2 auscultated, no edema, peripheral pulses 2+ and intact throughout ABD: Abd is soft, nontender, nondistended EXT: Normal range of motion, no obvious deformity SKIN: No rashes or lesions observed on exposed skin. NEURO: Alert and oriented x 4. Limitations: no limitations Course Vital Signs 09/27/24 09/27/24 09/27/24 11:57 13:27 13:37 Temperature 97.8 F Pulse Rate 99 84 86 Respiratory 16 Rate Blood Pressure 100/72 O2 Sat by Pulse 91 L Oximetry Medical Decision Making - Medical Decision Making Was pt. sent in by a medical professional or institution (, PA, SENIOR INSTRUMENTATION ENGINEER, urgent care, hospital, or [place] health care facility...) When possible be specific @ -Sent by net architect Dr. Santos for further workup for increased work of breathing Did you speak to anyone other than the patient for history (EMS, parent, family, police, friend...)? What history was obtained from this source @ -No Did you review nursing and triage notes (agree or disagree)? Why? @ -I reviewed and agree with nursing and triage notes Were old charts reviewed (outside hosp., previous admission, EMS record, old EKG, old radiological studies, urgent care reports/EKG's, [place] health care facility records)? Report findings @ -Reviewed prior visit from August 2025 when patient was diagnosed with pneumonia and had possible metastatic disease that was going to receive outpatient follow-up. Differential Diagnosis (chest pain, altered mental status, abdominal pain women, abdominal pain men, vaginal bleeding, weakness, fever, dyspnea, syncope, headache, dizziness, GI bleed, back pain, seizure, CVA, palpatations, mental health, musculoskeletal)? @ -Differential Dyspnea: Coronary syndrome, arrhythmia, tamponade, asthma, COPD, pulmonary embolism, pneumonia, pneumothorax, pulmonary effusion, anaphylaxis, diabetic ketoacidosis, flailed chest, pulmonary contusion, diaphragmatic rupture, anemia, neuromuscular, this is not meant to be an all-inclusive list. EKG interpreted by me (3pts min.). @ -As above X-rays interpreted by me (1pt min.). @ -Chest x-ray reveals large left pleural effusion. CT interpreted by me (1pt min.). @ -CTA of the chest reveals no evidence of PE. Patient does have an increased left lung consolidation as well as large left pleural effusion. Patient has has many pulmonary nodules. Lymphadenopathy present. U/S interpreted by me (1pt. min.). @ -None done What testing was considered but not performed or refused? (CT, X-rays, U/S, labs)? Why? @ -None What meds were considered but not given or refused? Why? @ -None Did you discuss the management of the patient with other professionals (professionals i.e. , PA, SENIOR INSTRUMENTATION ENGINEER, lab, RT, psych nurse, sr. social media & mobile manager, crew supervisor, teacher, sports development officer, employment case manager)? Give summary @ -Discussed management with net architect, Dr. Willson and who was in agreement with consult. Discussed with the admitting provider, Dr. eClaya who accepted the admission. Was smoking cessation discussed for >3mins.? @ -No Was critical care preformed (if so, how long)? @ -Yes, 31 minutes Were there social determinants of health that impacted care today? How? (Homelessness, low income, unemployed, alcoholism, drug addiction, transportation, low edu. Level, literacy, decrease access to med. care, snf, rehab)? @ -No Was there de-escalation of care discussed even if they declined (Discuss DNR or withdrawal of care, Hospice)? DNR status @ -No What co-morbidities impacted this encounter? (DM, HTN, Smoking, COPD, CAD, Cancer, CVA, ARF, Chemo, Hep., AIDS, mental health diagnosis, sleep apnea, morbid obesity)? @ -Tobacco use Was patient admitted / discharged? Hospital course, mention meds given and route, prescriptions, significant lab abnormalities, going to OR and other pertinent info. @ -Patient presents emergency department with what appears to be reactive airwa y disease with undiagnosed COPD but also concern for possible worsening of either possible cancer or pneumonia. Sent from net architect due to increased work of breathing. Was hypoxic on arrival which improved on nasal cannula oxygen. Patient will be given IV steroids as well as a breathing treatment. Patient will also receive a small fluid bolus. She was in agreement this plan. We will obtain CT PE in addition to cardiopulmonary labs. Patient was in agreement this plan. Laboratory studies remarkable for mild leukocytosis of 10.8. Troponin undetectable. Viral swabs negative. EKG showed no signs of acute ischemia. Chest x-ray shows large left pleural effusion. CT imaging redemonstrates this as well as increase in consolidation which could be possible pneumonia or mass with many pulmonary nodules. Patient empirically was placed on IV antibiotics. Will continue with IV steroi ds as well as breathing treatments. Patient requires a thoracentesis for the pleural effusion and consult placed to Dr. Willson who I spoke with him to update him on the consult. Patient will be admitted to the hospital and she was in agreement this plan. I spoke with admitting provider, Dr. Celaya who accepted the admission and requested procalcitonin be ordered which it was. Patient was in agreement this plan. Undiagnosed new problem with uncertain prognosis? @ -No Drug Therapy requiring intensive monitoring for toxicity (Heparin, Nitro, Insulin, Cardizem)? @ -No Were any procedures done? @ -No Diagnosis/symptom? @ -Hypoxic respiratory failure secondary to left pleural effusion, pulmonary nodules in the setting of possible metastatic disease or pneumonia. Acute, or Chronic, or Acute on Chronic? @ -Acute Uncomplicated (without systemic symptoms) or Complicated (systemic symptoms)? @ -Complicated Side effects of treatment? @ -No Exacerbation, Progression, or Severe Exacerbation? @ -No Poses a threat to life or bodily function? How? (Chest pain, [place], [place], pneumonia, PE, COPD, DKA, ARF, appy, cholecystitis, CVA, Diverticulitis, Homicidal, Suicidal, threat to staff... and all critical care pts) @ -Yes - Lab Data Result diagrams: 09/27/24 13:18 09/27/24 13:18 Lab Results 09/27/24 09/27/24 09/27/24 Range/Units 13:18 13:18 13:18 WBC 10.8 H (3.8-10.6) k/uL RBC 4.90 (3.80-5.40) m/uL Hgb 15.3 (11.4-16.0) gm/dL Hct 44.2 (34.0-46.0) % MCV 90.3 (80.0-100.0) fL MCH 31.2 (25.0-35.0) pg MCHC 34.6 (31.0-37.0) g/dL RDW 14.1 (11.5-15.5) % Plt Count 238 (150-450) k/uL MPV 8.5 Neutrophils % 67 % Lymphocytes % 22 % Monocytes % 6 % Eosinophils % 4 % Basophils % 0 % Neutrophils # 7.2 (1.3-7.7) k/uL Lymphocytes # 2.4 (1.0-4.8) k/uL Monocytes # 0.6 (0-1.0) k/uL Eosinophils # 0.4 (0-0.7) k/uL Basophils # 0.0 (0-0.2) k/uL PT 10.5 (10.0-12.5) sec INR 0.9 (<1.2) APTT 22.3 (22.0-30.0) sec D-Dimer 9.34 H (<0.60) mg/L FEU Sodium 135 L (137-145) mmol/L Potassium 4.3 (3.5-5.1) mmol/L Chloride 103 (98-107) mmol/L Carbon Dioxide 25 (22-30) mmol/L Anion Gap 7 mmol/L BUN 11 (7-17) mg/dL Creatinine 0.65 (0.52-1.04) mg/dL Est GFR (CKD-EPI)AfAm >90 (>60 ml/min/1.73 sqM) Est GFR (CKD-EPI)NonAf >90 (>60 ml/min/1.73 sqM) Glucose 95 (74-99) mg/dL Plasma Lactic Acid Mauricio (0.7-2.0) mmol/L Calcium 9.0 (8.4-10.2) mg/dL Magnesium 1.9 (1.6-2.3) mg/dL Total Bilirubin 0.3 (0.2-1.3) mg/dL AST 14 (14-36) U/L ALT 10 (4-34) U/L Alkaline Phosphatase 59 (38-126) U/L Troponin I (0.000-0.034) ng/mL NT-Pro-B Natriuret Pep 133 pg/mL Total Protein 6.5 (6.3-8.2) g/dL Albumin 3.6 (3.5-5.0) g/dL Influenza Type A (PCR) (Not Detectd) Influenza Type B (PCR) (Not Detectd) RSV (PCR) (Not Detectd) SARS-CoV-2 (PCR) (Not Detectd) 09/27/24 09/27/24 09/27/24 Range/Units 13:18 13:18 13:18 WBC (3.8-10.6) k/uL RBC (3.80-5.40) m/uL Hgb (11.4-16.0) gm/dL Hct (34.0-46.0) % MCV (80.0-100.0) fL MCH (25.0-35.0) pg MCHC (31.0-37.0) g/dL RDW (11.5-15.5) % Plt Count (150-450) k/uL MPV Neutrophils % % Lymphocytes % % Monocytes % % Eosinophils % % Basophils % % Neutrophils # (1.3-7.7) k/uL Lymphocytes # (1.0-4.8) k/uL Monocytes # (0-1.0) k/uL Eosinophils # (0-0.7) k/uL Basophils # (0-0.2) k/uL PT (10.0-12.5) sec INR (<1.2) APTT (22.0-30.0) sec D-Dimer (<0.60) mg/L FEU Sodium (137-145) mmol/L Potassium (3.5-5.1) mmol/L Chloride (98-107) mmol/L Carbon Dioxide (22-30) mmol/L Anion Gap mmol/L BUN (7-17) mg/dL Creatinine (0.52-1.04) mg/dL Est GFR (CKD-EPI)AfAm (>60 ml/min/1.73 sqM) Est GFR (CKD-EPI)NonAf (>60 ml/min/1.73 sqM) Glucose (74-99) mg/dL Plasma Lactic Acid Mauricio 1.2 (0.7-2.0) mmol/L Calcium (8.4-10.2) mg/dL Magnesium (1.6-2.3) mg/dL Total Bilirubin (0.2-1.3) mg/dL AST (14-36) U/L ALT (4-34) U/L Alkaline Phosphatase (38-126) U/L Troponin I <0.012 (0.000-0.034) ng/mL NT-Pro-B Natriuret Pep pg/mL Total Protein (6.3-8.2) g/dL Albumin (3.5-5.0) g/dL Influenza Type A (PCR) Not Detected (Not Detectd) Influenza Type B (PCR) Not Detected (Not Detectd) RSV (PCR) Not Detected (Not Detectd) SARS-CoV-2 (PCR) Not Detected (Not Detectd) - EKG Data -: EKG Interpreted by Me EKG Comments: 12-lead Electrocardiogram Interpretation Note EKG was reviewed and interpreted by myself. 12-lead ECG performed at 1210 is interpreted by me as revealing normal sinus rhythm at a rate of 84 beats per minute. [place] is normal. [place] interval is 172 ms, QRS duration is 81 ms, QTc is 397 ms.. There were no ST or T wave abnormalities to suggest myocardial ische canelo or injury. R wave progression across the precordium was satisfactory. By my interpretation this EKG is non-diagnostic for acute ischemia. Critical Care Time Critical Care Time: Yes Total Critical Care Time: 31 Disposition Clinical Impression: Hypoxic respiratory failure, Reactive airway disease, Pulmonary nodule, Pneumonia, Pleural effusion Disposition: ADMITTED IP TO THIS HOSP Condition: Serious Referrals: Ruddy Real MD [Primary Care Provider] - 1-2 days Time of Disposition: 15:30
[2024-09-27] MEDS: SODIUM CHLORIDE 0.9% 1,000 ML IV SCH (15:50)
[2024-09-27] MEDS: PIPERACILLIN-TAZOBACTAM 3.375 GM in SODIUM CHLORIDE 0.9% 100 ML IVPB STA (15:53)
[2024-09-27 16:21] LABS: Appearance,Urine Clear (Clear); Bilirubin,Urine Negative (Negative); Blood,Urine Negative (Negative); Color,Urine Colorless; Glucose,Urine (UA) Negative (Negative); Ketones,Urine Negative (Negative); Leukocyte Esterase,Urine Negative (Negative); Nitrite,Urine Negative (Negative); Protein,Urine Negative (Negative); Urobilinogen,Urine <2.0 mg/dL (<2.0)
[2024-09-27] MEDS: AZITHROMYCIN 500 MG in SODIUM CHLORIDE 0.9% 250 ML IVPB STA (17:27)
--- NOTE | 2024-09-27 18:26 | XR ---
EXAMINATION TYPE: XR chest 1V DATE OF EXAM: 09/27/2024 6:09 PM COMPARISON: 09/27/2024 earlier in the afternoon CLINICAL INDICATION: Female, 49 years old with history of post thoracentesis, worsening short of rebekah th and cough TECHNIQUE: XR chest 1V view(s) obtained. FINDINGS: The heart size is normal. The pulmonary vasculature is normal. There is infiltrate in the left perihilar and left lower lobe regions and some patchy infiltrate kat g the right mid and lower lung minor. Left lower lung opacity and prior effusion has largely resolve d. No pneumothorax is evident. IMPRESSION: 1. No pneumothorax post thoracentesis. 2. Patchy infiltrates appear similar or improved from the comparison. [facility], Workstation: [facility], 09/27/2024 6:24 PM
[2024-09-27] MEDS: guaiFENesin 600 MG TABLET.ER PO SCH (18:31)
--- NOTE | 2024-09-27 20:31 | P.HPIM ---
History of Present Illness H&P Date: 09/27/24 Chief Complaint: Short of breath 49-year-old patient who follows with Dr. Ruddy Real. Chronic stable medical conditions include fibromyalgia, rheumatoid arthritis, endometriosis, anxiety depression, hypertension, GERD. Patient was recently at [place] for [facility] re[facility]. Last drink about 5 weeks ago. Patient does vaping and also's cigarette smoking. August patient underwent bronchoscopy by Dr. ALVAREZ from pulmonary. Results are nonspecific. Malignancy could not be ruled out. Patient presents presents with progressive shortness of breath. Sleeps well because of coughing and shortness of breath. Bringing up significant sputum. No light in color. Appetite is okay. Patient was sent in by Dr. ALVAREZ for further workup. Review of systems: GEN.: Tired, decreased appetite EYES: None HEENT: None NECK: None RESPIRATORY: As above CARDIOVASCULAR: None GASTROINTESTINAL: None GENITOURINARY: None MUSCULOSKELETAL: None LYMPHATICS: None HEMATOLOGICAL: None PSYCHIATRY: Bit anxious NEUROLOGICAL: None Social history: . Lives with her mother. Significant water intake after 5 weeks ago when she was admitted to [place]. Does vaping also smoke up to half a pack a day Physical examination: VITAL SIGNS: 97.5, 84, 19, 107 x 72, 93% on 4 L EYES: Pupils equal. Conjunctiva alyce l. HEENT: External appearance of nose and ears normal, oral cavity grossly normal. NECK: JVD not raised; masses not palpable. HEART: First and second heart sounds are normal; no edema. LUNGS: Respiratory rate increased, diminished breath sound ABDOMEN: Soft, nontender, liver spleen not palpable, no masses palpable. PSYCH: Alert and oriented x3; mood and affect anxious MUSCULOSKELETAL:No Clubbing/cyanosis;muscles-grossly intact NEUROLOGICAL: Cranial nerves grossly intact; no facial asymmetry, power and sensation grossly intact. LYMPHATICS: No lymph nodes palpable in the axilla and neck INVESTIGATIONS, reviewed in the clinical context: September 27: White count 10.8 hemoglobin 15.3 platelets 238 sodium 135 potassium 4.3 creatinine 0.65. Procalcitonin 0.03 Influenza type A, type B, RSV, COVID-19: Not detected CT angio chest [August 26, 2024]: More than 50 nodules throughout the lungs. Left upper lung masslike consolidation. 58 x 32 mm. Some nodules of central cavitation. Lymphadenopathy. Negative for PE Chest x-ray film personally reviewed by me-patchy infiltrates. Left basilar consolidation/effusion Assessment plan: -Acute COPD exacerbation in a smoker. Made worse by known consolidation infiltrates. Procalcitonin negative. DuoNeb Q4. Symbicort. -Large left pleural effusion. Contributing to shortness of breath. Left thoracentesis done today by Dr. Willson. Fluid sent off for studies. -Left upper lobe consolidation and multiple lung nodules. Suspicious for malignancy.. In a smoker. Bronchoscopy done August [address] ALVAREZ:-Results inconclusive could not rule out malignancy. Patient may require a repeat bronchoscopy with tissue if pleural effusion inconclusive -Questionable pneumonia. Pulmonary consulted -Alcohol use disorder Patient was drinking close to a gallon prior to getting admitted to [place] where she is currently under rehab. Last drink was about 2 weeks ago -Essential hypertension Catapres. -Chronic nicotine dependence plus vaping Nicotine patch -Anxiety depression, peds anxiety uncontrolled Trazodone. Wellbutrin XL -Full code Discussed with patient. Pulmonary consulted. Past Medical History Past Medical History: Heart Failure, Fibromyalgia, Rheumatoid Arthritis (RA) Additional Past Medical History / Comment(s): endometriosis History of Any Multi-Drug Resistant Organisms: None Reported Past Surgical History: Section, Hernia Repair, Tubal Ligation Additional Past Surgical History / Comment(s): laproscopy Past Anesthesia/Blood Transfusion Reactions: No Reported Reaction Smoking Status: Current every day smoker, Vaper - Past Family History Mother Family Medical History: Hypertension Father Family Medical History: COPD Medications and Allergies Home Medications Medication Instructions Recorded Confirmed Type Fluticasone Nasal [place] [Flonase 1 spray EA NOSTRIL DAILY 08/26/24 09/27/24 H istory Nasal [place]] Linaclotide [Linzess] 290 mcg PO DAILY 08/26/24 09/27/24 History Pantoprazole [Protonix] 40 mg PO DAILY 08/26/24 09/27/24 History Sennosides/Docusate Sodium [Senna 1 tab PO BID PRN 08/26/24 09/27/24 History Plus 8.6-50 mg Softgel] buPROPion XL [Wellbutrin XL] 300 mg PO DAILY 08/26/24 09/27/24 History cloNIDine HCL 0.1 mg PO BID 08/26/24 09/27/24 History Budesonide/Formoterol Fumarate 1 puff INHALATION RT-BID 09/27/24 09/27/24 History [Symbicort 160-4.5 Mcg Inhaler] Furosemide [Lasix] 20 mg PO DAILY 09/27/24 09/27/24 History Nicotine 14Mg/24Hr Patch [Habitrol] 1 patch TRANSDERM DAILY 09/27/24 09/27/24 History Potassium Chloride ER [K-Dur 10] 10 meq PO DAILY 09/27/24 09/27/24 History guaiFENesin [Mucinex] 1,200 mg PO Q12H 09/27/24 09/27/24 History Allergies Allergy/AdvReac Type Severity Reaction Status Date / Time latex Allergy Rash/Hives Verified 09/27/24 13:58 Physical Exam Vitals: Vital Signs Temp Pulse Pulse Resp BP BP Pulse Ox 09/27/24 19:38 97.5 F L 84 19 107/72 93 L 09/27/24 19:02 97.8 F 78 17 101/70 09/27/24 18:26 97.9 F 87 24 113/66 92 L 09/27/24 18:00 91 L 09/27/24 17:31 87 18 101/78 91 L 09/27/24 13:37 86 09/27/24 13:27 84 09/27/24 11:57 97.8 F 99 16 100/72 91 L Intake and Output 09/27/24 09/27/24 09/27/24 06:59 14:59 22:59 Intake Total 10 Balance 10 Intake: IV 10 Invasive Line 2 10 Other: Voiding Method Toilet Weight 65.771 kg 65.771 kg Results CBC & Chem 7: 09/27/24 13:18 09/27/24 13:18 Labs: Abnormal Lab Results - Last 24 Hours (Table) 09/27/24 09/27/24 09/27/24 Range/Units 13:18 13:18 13:18 WBC 10.8 H (3.8-10.6) k/uL D-Dimer 9.34 H (<0.60) mg/L FEU Sodium 135 L (137-145) mmol/L Ur Specific [place] (1.001-1.035) 09/27/24 Range/Units 15:55 WBC (3.8-10.6) k/uL D-Dimer (<0.60) mg/L FEU Sodium (137-145) mmol/L Ur Specific [place] 1.050 H (1.001-1.035) Thrombosis Risk Factor Assmnt - Choose All That Apply Each Factor Represents 1 point: Age 41-60 years Thrombosis Risk Factor Assessment Total Risk Factor Score: 1 Thrombosis Risk Factor Assessment Level: Low Risk
--- NOTE | 2024-09-27 21:10 | XR ---
EXAMINATION TYPE: XR chest 1V DATE OF EXAM: 09/27/2024 8:53 PM COMPARISON: 09/27/2024 CLINICAL INDICATION: Female, 49 years old with history of SOB with activity, TECHNIQUE: XR chest 1V view(s) obtained. FINDINGS: The heart size is normal. The pulmonary vasculature is normal. Patchy infiltrates are present bilaterally. A small left pleural effusion may be developing. No pneum othorax is evident . IMPRESSION: 1. Persistent patchy infiltrates compatible with pneumonia. 2. There may be some recurrence of a minimal left pleural effusion. [facility], Workstation: [facility], 09/27/2024 9:07 PM
[2024-09-27] MEDS: ENOXAPARIN 40 MG/0.4 ML SYRINGE SQ SCH (21:12)
[2024-09-27] MEDS: cloNIDine HCL 0.1 MG TAB PO SCH (21:13)
[2024-09-27] MEDS: methylPREDNISolone SOD SUCCI 40 MG/ML 1 ML VIAL IV SCH (21:13)
[2024-09-27] MEDS: NAPROXEN 250 MG TAB PO PRN (21:13)
[2024-09-27] MEDS: IPRATROPIUM-ALBUTEROL 3 ML NEB INHALATION SCH (21:33)
[2024-09-27] MEDS: SYMBICORT 160-4.5 MCG INHALER INHALATION SCH (21:34)
--- NOTE | 2024-09-27 21:35 | P.CNPUL ---
History of Present Illness Consult date: 09/27/24 Reason for consult: dyspnea, lung mass History of present illness: This is a 49-year-old female patient who was referred from our clinic due to w orsening shortness of breath. The patient is a smoker and she was hospitalized back in 08/27/2024, seen in consultation for abnormal CAT scan of the chest that showed left upper lobe masslike consolidation in addition to scattered multiple bilateral pulmonary nodules and mediastinal lymphadenopathy concerning for malignancy and diffuse metastatic disease. At that time, the patient's underwent a bronchoscopy on 08/30/2024 and a bronchioloalveolar lavage was done without any biopsies. The microbial cultures were essentially negative. MRI of the brain done showed no significant metastatic lesions. CAT scan of the abdomen and pelvis showed no acute abnormalities in the abdomen and pelvic area. Some nonspecific prominence in the left retroperitoneal and para aortic lymph node was noted measuring 10 mm in size. His past medical history is positive for rheumatoid arthritis, not receiving any immunosuppressive agents. She has also history of alcoholism when she has undergone previous rehabilitation at [facility] and she states that she is not drinking alcohol for now. She is known to have fibromyalgia and history of congestive heart failure. No hemoptysis. No pleurisy. Persistent cough without any significant sputum production. Progressive worsening in shortness of breath. A CTA of the chest was done on 09/27/2023 showing no evidence of any pulmonary embolism, interval development of a large left-sided pleural effusion, intelligible increase in left lung consolidation along with innumerable and persistent bilateral diffuse pulmonary nodules and presence of mediastinal and bilateral hilar lymphadenopathy. Patient is currently on oxygen at 4 L with a pulse ox of 94%. Connective tissue disease markers including RF, JES and PNC ANCA were all negative. Review of Systems CONSTITUTIONAL: Denies any recent significant weight loss or weight gain. EYES: Denies change in vision. EARS, NOSE, MOUTH, THROAT: Denies headaches, denies sore throat. CARDIOVASCULAR: Denies chest pain, palpitations or syncopal episodes. RESPIRATORY: Positive for shortness of breath, cough, congestion no hemoptysis. GASTROINTESTINAL: Denies change in appetite, denies abdominal pain GENITOURINARY: Denies hematuria, denies infections. MUSKULOSKELETAL: Denies pain, denies swelling. INTEGUMENTARY: Denies rash, denies eczema. NEUROLOGICAL: Denies recent memory loss, no recent seizure activity. PSYCHIATRIC: Denies anxiety, denies depression. HEMATOLOGIC/LYMPHATIC: Denies anemia, denies enlarged lymph nodes. Past Medical History Past Medical History: Heart Failure, Fibromyalgia, Rheumatoid Arthritis (RA) Additional Past Medical History / Comment(s): endometriosis History of Any Multi-Drug Resistant Organisms: None Reported Past Surgical History: Section, Hernia Repair, Tubal Ligation Additional Past Surgical History / Comment(s): laproscopy Past Psychological History: Anxiety, Depression Smoking Status: Current every day smoker Past Alcohol Use History: Abuse, Daily Past Drug Use History: None Reported - Past Family History Mother Family Medical History: Hypertension Father Family Medical History: COPD Medications and Allergies Home Medications Medication Instructions Recorded Confirmed Type Fluticasone Nasal [place] [Flonase 1 spray EA NOSTRIL DAILY 08/26/24 09/27/24 History Nasal [place]] Linaclotide [Linzess] 290 mcg PO DAILY 08/26/24 09/27/24 History Pantoprazole [Protonix] 40 mg PO DAILY 08/26/24 09/27/24 History Sennosides/Docusate Sodium [Senna 1 tab PO BID PRN 08/26/24 09/27/24 History Plus 8.6-50 mg Softgel] buPROPion XL [Wellbutrin XL] 300 mg PO DAILY 08/26/24 09/27/24 History cloNIDine HCL 0.1 mg PO BID 08/26/24 09/27/24 History Budesonide/Formoterol Fumarate 1 puff INHALATION RT-BID 09/27/24 09/27/24 History [Symbicort 160-4.5 Mcg Inhaler] Furosemide [Lasix] 20 mg PO DAILY 09/27/24 09/27/24 History Nicotine 14Mg/24Hr Patch [Habitrol] 1 patch TRANSDERM DAILY 09/27/24 09/27/24 History Potassium Chloride ER [K-Dur 10] 10 meq PO DAILY 09/27/24 09/27/24 History guaiFENesin [Mucinex] 1,200 mg PO Q12H 09/27/24 09/27/24 History Allergies Allergy/AdvReac Type Severity Reaction Status Date / Time latex Allergy Rash/Hives Verified 09/27/24 13:58 Physical Exam Vitals: Vital Signs Temp Pulse Resp BP Pulse Ox 09/27/24 17:31 87 18 101/78 91 L 09/27/24 13:37 86 09/27/24 13:27 84 09/27/24 11:57 97.8 F 99 16 100/72 91 L Intake and Output 09/27/24 09/27/24 09/27/24 06:59 14:59 22:59 Other: Weight 65.771 kg GENERAL EXAM: Alert, pleasant 49-year-old female, resting in bed, on 4 L of oxygen nasal cannula and the patient is in mild degree of respiratory distress and having persistent coughing with speech. HEAD: Normocephalic. EYES: Normal reaction of pupils, equal size. NOSE: Clear with pink turbinates. THROAT: No erythema or exudates. NECK: No masses, no JVD. CHEST: No chest wall deformity. LUNGS: Equal air entry with few scattered rhonchi. Significant diminishment of breath sounds in the left lung base along with dullness to percussion. CVS: S1 and S2 normal with no audible murmur, regular rhythm. ABDOMEN: No hepatosplenomegaly, normal bowel sounds, no guarding or rigidity. SPINE: No scoliosis or deformity SKIN: No rashes CENTRAL NERVOUS SYSTEM: No focal deficits, tone is normal in all 4 extremities. EXTREMITIES: There is no peripheral edema. No clubbing, no cyanosis. Peripheral pulses are intact. Results - Laboratory Findings CBC and BMP: 09/27/24 13:18 09/27/24 13:18 PT/INR, D-dimer PT 10.5 sec (10.0-12.5) 09/27/24 13:18 INR 0.9 (<1.2) 09/27/24 13:18 D-Dimer 9.34 mg/L FEU (<0.60) H 09/27/24 13:18 Abnormal lab findings: Abnormal Labs 09/27/24 09/27/24 09/27/24 13:18 13:18 13:18 WBC 10.8 H D-Dimer 9.34 H Sodium 135 L Ur Specific [place] 09/27/24 15:55 WBC D-Dimer Sodium Ur Specific [place] 1.050 H Assessment and Plan Plan: Acute hypoxic respiratory failure, currently on 4 L of oxygen by nasal cannula. CT of the chest shows left upper lobe consolidation, innumerable bilateral pulmonary nodules in addition mediastinal lymphadenopathy and a new large left- sided pleural effusion REVIEWED his respiratory failure. Findings are highly suspicious for malignancy, highly suspect lung cancer shortness of breath and cough suspect secondary to left upper lung consolidation with scattered pulmonary nodules. Procalcitonin negative. Rheumatoid factor negative. JES negative. P-ANCA c-ANCA negative. Legionella urine antigen negative. Chronic and ongoing tobacco dependence History of vaping Alcoholism, currently residing in [facility] History of rheumatoid arthritis, treated over 20 years ago without much improvement and she has not been on any medications since and the patient's rheumatoid factor is negative Fibromyalgia Depression History of congestive heart failure Plan: Will perform a diagnostic and therapeutic thoracentesis of the left lung Pleural fluid will be sent for cytology analysis If pleural fluid is nondiagnostic for malignancy, the patient will need bronchoscopy, endobronchial ultrasound sampling of the mediastinal lymph nodes and possibly of the pulmonary nodules Titrate oxygen flow to maintain saturation above 90% Procalcitonin negative Antibiotics discontinued Continue bronchodilators, steroids Prognosis poor based on above-mentioned comorbidities. Will continue to follow
--- NOTE | 2024-09-27 21:36 | P.PCN ---
Date of Procedure: 09/27/24 Preoperative Diagnosis: Pleural effusion, left Postoperative Diagnosis: Pleural effusion, left Procedure(s) Performed: Thoracentesis, left Anesthesia: local Surgeon: Alicia Willson Estimated Blood Loss (ml): 0 Pathology: other Condition: stable Disposition: floor Operative Findings: A time out was performed and the chest x-ray was reviewed, the appropriate side was confirmed and marked. My hands were washed immediately prior to the procedure. I wore a surgical cap, mask with protective eyewear, sterile gown and sterile gloves throughout the procedure. The patient was prepped and draped in a sterile manner using chlorhexidine scrub after the appropriate level was percussed and confirmed by ultrasound. 1% lidocaine was used to anesthesize the skin, subcutaneous tissue, superior aspect of the rib periosteum and parietal pleura. A finder needle was then introduced over the superior aspect of the rib to locate the pleural fluid; 2colored fluid was aspirated at a depth of approximately 2 cm. A 10-blade scalpel was used to mark the skin at the insertion site. The [id number] needle was then introduced through the skin incision into the pleural space using negative aspiration pressure and the red colometric indicator to confirm appropriate positioning of the needle. The thoracentesis catheter was then threaded without difficulty. 2300 ml of turbid colored fluid was removed without difficulty. The catheter was then removed. No immediate complications were noted during the procedure. A post-procedure chest x-ray is pending at the time of this note. The fluid will be sent for studies. Estimated blood loss is 0cc
[2024-09-27] MEDS: NAPROXEN 250 MG TAB PO SCH (21:51)
[2024-09-28] MEDS ORDERED: PIPERACILLIN-TAZOBACTAM 3.375 GM in SODIUM CHLORIDE 0.9% 100 ML IVPB SCH
[2024-09-28 03:58] LABS: Glucose, BF Source Pleural Fluid; Glucose, Body Fluid 121 mg/dL; LDH, Body Fluid Source Pleural Fluid; T. Protein, Body Fluid Source Pleural Fluid; Total Protein, Body Fluid >3600 mg/dL
[2024-09-28 04:48] LABS: Appearance,BF Cloudy (Clear)
[2024-09-28 07:06] LABS: Basophils % (A) 0 %; Eosinophils # (A) 0.2 k/uL (0-0.7); Eosinophils % (A) 1 %; HGB 13.9 gm/dL (11.4-16.0); Lymphocytes # (A) 1.8 k/uL (1.0-4.8); Lymphocytes % (A) 9 %; MCH 30.9 pg (25.0-35.0); MCHC 33.2 g/dL (31.0-37.0); MCV 93.1 fL (80.0-100.0); Mean Platelet Volume 8.6; Monocytes # (A) 0.7 k/uL (0-1.0); Monocytes % (A) 4 %; Neutrophils # (A) 16.4 k/uL (1.3-7.7); Neutrophils % (A) 86 %; Platelet Count 234 k/uL (150-450); RBC 4.51 m/uL (3.80-5.40); RDW 13.6 % (11.5-15.5); WBC 19.1 k/uL (3.8-10.6)
[2024-09-28 07:26] LABS: ALT 12 U/L (4-34); AST 13 U/L (14-36); African American GFR (CKD) >90 (>60 ml/min/1.73 sqM); Albumin 3.3 g/dL (3.5-5.0); Alkaline Phosphatase 56 U/L (38-126); Anion Gap 7 mmol/L; Blood Urea Nitrogen 10 mg/dL (7-17); Calcium 8.8 mg/dL (8.4-10.2); Carbon Dioxide 24 mmol/L (22-30); Chloride 108 mmol/L (98-107); Glucose 110 mg/dL (74-99); Non-African American GFR(CKD) >90 (>60 ml/min/1.73 sqM); Potassium 4.4 mmol/L (3.5-5.1); Sodium 139 mmol/L (137-145); Total Bilirubin 0.1 mg/dL (0.2-1.3)
--- NOTE | 2024-09-28 08:27 | XR ---
EXAMINATION TYPE: XR chest 2V DATE OF EXAM: 09/28/2024 6:21 AM COMPARISON: Chest x-ray and CT chest from one day earlier and older studies CLINICAL INDICATION: Female, 49 years old with history of pneumonia, TECHNIQUE: Frontal and lateral views of the chest are obtained. FINDINGS: Scattered small bilateral pulmonary nodules are redemonstrated. Persistent left suprahilar mass or neoplasm. Small bilateral pleural effusions currently. Persistent left lower lung increased o pacity. Osseous structures are intact. Cardiac silhouette size is stable and within normal limits. IMPRESSION: There is a new small right pleural effusion. Other findings stable. Stable small left ple ural effusion and left basilar acute infiltrate and/or atelectasis. Stable left suprahilar mass and s cattered small bilateral pulmonary nodules suggesting neoplasm. [facility], , 09/28/2024 8:24 AM
[2024-09-28] MEDS: PANTOPRAZOLE 40 MG TABLET PO SCH (08:40)
[2024-09-28] MEDS: buPROPion XL 300 MG TAB.ER.24H PO SCH (08:40)
[2024-09-28] MEDS: FUROSEMIDE 20 MG TAB PO SCH (08:40)
[2024-09-28] MEDS ORDERED: AZITHROMYCIN 500 MG in SODIUM CHLORIDE 0.9% 250 ML IVPB SCH (09:00)
[2024-09-28] MEDS: NICOTINE 14MG/24HR PATCH TRANSDERM SCH (11:22)
--- NOTE | 2024-09-28 13:43 | P.PN ---
Subjective Progress Note Date: 09/28/24 This is a 49-year-old female patient who was referred from our clinic due to worsening shortness of breath. The patient is a smoker and she was hospitalized back in 08/27/2024, seen in consultation for abnormal CAT scan of the chest that showed left upper lobe masslike consolidation in addition to scattered multiple bilateral pulmonary nodules and mediastinal lymphadenopathy concerning for malignancy and diffuse metastatic disease. At that time, the patient's underwent a bronchoscopy on 08/30/2024 and a bronchioloalveolar lavage was done without any biopsies. The microbial cultures were essentially negative. MRI of the brain done showed no significant metastatic lesions. CAT scan of the abdom en and pelvis showed no acute abnormalities in the abdomen and pelvic area. Some nonspecific prominence in the left retroperitoneal and para aortic lymph node was noted measuring 10 mm in size. His past medical history is positive for rheumatoid arthritis, not receiving any immunosuppressive agents. She has also history of alcoholism when she has undergone previous rehabilitation at [facility] and she states that she is not drinking alcohol for now. She is known to have fibromyalgia and history of congestive heart failure. No hemoptysis. No pleurisy. Persistent cough without any significant sputum production. Progressive worsening in shortness of breath. A CTA of the chest was done on 09/27/2023 showing no evidence of any pulmonary embolism, interval development of a large left-sided pleural effusion, intelligible increase in left lung consolidation along with innumerable and pe rsistent bilateral diffuse pulmonary nodules and presence of mediastinal and bilateral hilar lymphadenopathy. Patient is currently on oxygen at 4 L with a pulse ox of 94%. Connective tissue disease markers including RF, JES and PNC ANCA were all negative. On 09/28/2024, the patient is feeling better and the patient is less short of breath following a thoracentesis of the left lung which was performed yesterday. No complications. The patient continues to have some dry cough. Meanwhile, the fluid analysis of the pleural fluid showed an exudate with elevated protein and LDH. Fluid cytology still pending. Will set up this patient for bronchoscopy and endobronchial ultrasound with next 24 to 48 hours. This will be needed to sample the mediastinal lymph nodes for tissue diagnosis as there is increased suspicion for metastatic carcinoma. Objective - Vital Signs Vital signs: Vital Signs Temp 97.6 F 09/28/24 11:19 Pulse 51 L 09/28/24 11:19 Resp 18 09/28/24 11:19 BP 97/68 09/28/24 11:19 Pulse Ox 98 09/28/24 11:19 FiO2 Intake & Output 09/27/24 09/28/24 09/28/24 18:59 06:59 18:59 Intake Total 20 490 Balance 20 490 Weight 65.771 kg 66.7 kg Intake: IV 20 10 Invasive Line 2 20 10 Oral 480 Other: Voiding Method Toilet Toilet # Voids 1 - Exam GENERAL EXAM: Alert, pleasant 49-year-old female, resting in bed, on 4 L of oxygen nasal cannula and breathing is less labored compared to yesterday. HEAD: Normocephalic. EYES: Normal reaction of pupils, equal size. NOSE: Clear with pink turbinates. THROAT: No erythema or exudates. NECK: No masses, no JVD. CHEST: No chest wall deformity. LUNGS: Equal air entry with few scattered rhonchi. Adequate air entry in the left lung base although the breath sounds left lower lobe remain slightly diminished. CVS: S1 and S2 normal with no audible murmur, regular rhythm. ABDOMEN: No hepatosplenomegaly, normal bowel sounds, no guarding or rigidity. SPINE: No scoliosis or deformity SKIN: No rashes CENTRAL NERVOUS SYSTEM: No focal deficits, tone is normal in all 4 extremities. EXTREMITIES: There is no peripheral edema. No clubbing, no cyanosis. Peripheral pulses are intact. - Labs CBC & Chem 7: 09/28/24 06:32 09/28/24 06:32 Labs: Abnormal Lab Results - Last 24 Hours (Table) 09/27/24 09/27/24 09/27/24 Range/Units 13:18 13:18 13:18 WBC 10.8 H (3.8-10.6) k/uL Neutrophils # (1.3-7.7) k/uL D-Dimer 9.34 H (<0.60) mg/L FEU Sodium 135 L (137-145) mmol/L Chloride (98-107) mmol/L Glucose (74-99) mg/dL Total Bilirubin (0.2-1.3) mg/dL AST (14-36) U/L Total Protein (6.3-8.2) g/dL Albumin (3.5-5.0) g/dL Ur Specific [place] (1.001-1.035) Fluid Appearance (Clear) 09/27/24 09/27/24 09/28/24 Range/Units 15:00 15:55 06:32 WBC 19.1 H (3.8-10.6) k/uL Neutrophils # 16.4 H (1.3-7.7) k/uL D-Dimer (<0.60) mg/L FEU Sodium (137-145) mmol/L Chloride (98-107) mmol/L Glucose (74-99) mg/dL Total Bilirubin (0.2-1.3) mg/dL AST (14-36) U/L Total Protein (6.3-8.2) g/dL Albumin (3.5-5.0) g/dL Ur Specific [place] 1.050 H (1.001-1.035) Fluid Appearance Cloudy A (Clear) 09/28/24 Range/Units 06:32 WBC (3.8-10.6) k/uL Neutrophils # (1.3-7.7) k/uL D-Dimer (<0.60) mg/L FEU Sodium (137-145) mmol/L Chloride 108 H (98-107) mmol/L Glucose 110 H (74-99) mg/dL Total Bilirubin 0.1 L (0.2-1.3) mg/dL AST 13 L (14-36) U/L Total Protein 6.0 L (6.3-8.2) g/dL Albumin 3.3 L (3.5-5.0) g/dL Ur Specific [place] (1.001-1.035) Fluid Appearance (Clear) Microbiology - Last 24 Hours (Table) 09/27/24 15:00 Gram Stain - Preliminary Pleural Fluid Assessment and Plan Plan: Acute hypoxic respiratory failure, currently on 4 L of oxygen by nasal cannula. CT of the chest shows left upper lobe consolidation, innumerable bilateral pulmonary nodules in addition mediastinal lymphadenopathy and a new large left- sided pleural effusion REVIEWED his respiratory failure. Findings are highly suspicious for malignancy, highly suspect lung cancer. The patient's condition has improved following a thoracentesis and removal of 2.2 L of pleural fluid from the left hemithorax performed on 09/27/2024. Pleural fluid is exudative. Cytology is pending Multiple bilateral pulmonary nodules, highly suggestive of metastatic disease in addition to mediastinal lymphadenopathy Left-sided pleural effusion, possibly malignant. Patient is postthoracentesis with removal of 2.2 L of pleural fluid from the left lung. Exudate. Cytology is pending. shortness of breath and cough suspect secondary to left upper lung consolidation with scattered pulmonary nodules. Procalcitonin negative. Rheumatoid factor negative. JES negative. P-ANCA c-ANCA negative. Legionella urine antigen negative. Chronic and ongoing tobacco dependence History of vaping Alcoholism, currently residing in [facility] History of rheumatoid arthritis, treated over 20 years ago without much im provement and she has not been on any medications since and the patient's rheumatoid factor is negative Fibromyalgia Depression History of congestive heart failure Plan: Awaiting pleural fluid cytology Will discuss findings with the pathologist. Will set up this patient for bronchoscopy and endobronchial ultrasound with the next 24 to 48 hours for tissue diagnosis Titrate oxygen flow to maintain saturation above 90% Procalcitonin negative Antibiotics discontinued Continue bronchodilators, steroids Prognosis poor based on above-mentioned comorbidities. Will continue to follow
--- NOTE | 2024-09-28 18:12 | P.PN ---
Progress Note - Text Progress Note Date: 09/28/24 Chief Complaint: Short of breath 49-year-old patient who follows with Dr. Ruddy Real. Chronic stable medical conditions include fibromyalgia, rheumatoid arthritis, endometriosis, anxiety depression, hypertension, GERD. Patient was recently at [facility] for alcohol rehab. Last drink about 5 weeks ago. Patient does vaping and also's cigarette smoking. August patient underwent bronchoscopy by Dr. ALVAREZ from pulmonary. Results are nonspecific. Malignancy could not be ruled out. Patient presents presents with progressive shortness of breath. Sleeps well because of coughing and shortness of breath. Bringing up significant sputum. No light in color. Appetite is okay. Patient was sent in by Dr. ALVAREZ for further workup. September 28: Slight improvement in breathing. Though still short of breath. Coughing up clear sputum. Discussed with Dr. Willson./Director Of Individual Giving. Considering bronchoscopy as a last 1 did not reveal good tissue samples. Patient remains on IV Solu-Medrol bronchodilators. Active Medications Albuterol/Ipratropium (Ipratropium-Albuterol 3 Ml Neb) 3 ml INHALATION RT-Q4H PRN PRN Reason: shortness of breath Albuterol/Ipratropium (Ipratropium-Albuterol 3 Ml Neb) 3 ml INHALATION RT-Q4H [facility] Last Admin: 09/28/24 16:04 Dose: 3 ml Budesonide/Formoterol Fumarate (Symbicort 160-4.5 Mcg Inhaler) 1 puff INHALATION RT-BID [facility] Last Admin: 09/28/24 08:28 Dose: 1 puff Bupropion HCl (Bupropion Xl 300 Mg Tab.Er.24h) 300 mg PO DAILY [facility] Last Admin: 09/28/24 08:40 Dose: 300 mg Clonidine (Clonidine Hcl 0.1 Mg Tab) 0.1 mg PO BID [facility] Last Admin: 09/28/24 08:40 Dose: 0.1 mg Enoxaparin Sodium (Enoxaparin 40 Mg/0.4 Ml Syringe) 40 mg SQ DAILY [facility] Last Admin: 09/28/24 08:41 Dose: 40 mg Furosemide (Furosemide 20 Mg Tab) 20 mg PO DAILY [facility] Last Admin: 09/28/24 08:40 Dose: 20 mg Guaifenesin (Guaifenesin 600 Mg Tablet.Er) 1,200 mg PO Q12HR [facility] Last Admin: 09/28/24 08:40 Dose: 1,200 mg Guaifenesin/Dextromethorphan (Guaifenesin-Dm 100-10mg/5ml 10 Ml Cup) 10 ml PO Q6HR [facility] Sodium Chloride (Saline 0.9%) 1,000 mls @ 50 mls/hr IV .Q20H [facility] Last Admin: 09/28/24 08:40 Dose: 50 mls/hr Methylprednisolone Sodium Succinate (Methylprednisolone Sod Succi 40 Mg/Ml 1 Ml Vial) 40 mg IV Q12HR [facility] Last Admin: 09/28/24 08:40 Dose: 40 mg Miscellaneous Information (Pneumonia Protocol Utilized 1 Each Misc) 1 each PO ONCE PRN PRN Reason: Per Protocol Naloxone HCl (Naloxone 0.4 Mg/Ml 1 Ml Vial) 0.2 mg IV Q2M PRN PRN Reason: Opioid Reversal Naproxen (Naproxen 250 Mg Tab) 250 mg PO Q8H PRN PRN Reason: Pain Last Admin: 09/28/24 11:22 Dose: 250 mg Nicotine (Nicotine 14mg/24hr Patch) 1 patch TRANSDERM DAILY [facility] Last Admin: 09/28/24 11:22 Dose: 1 patch Pantoprazole Sodium (Pantoprazole 40 Mg Tablet) 40 mg PO DAILY [facility] Last Admin: 09/28/24 08:40 Dose: 40 mg Social history: . Lives with her mother. Significant water intake after 5 weeks ago when she was admitted to [facility]. Does vaping also smoke up to half a pack a day Physical examination: VITAL SIGNS: 98, 73, 16, 108 x 68, 91% room air EYES: Pupils equal. Conjunctiva alyce l. HEENT: External appearance of nose and ears normal, oral cavity grossly normal. NECK: JVD not raised; masses not palpable. HEART: First and second heart sounds are normal; no edema. LUNGS: Respiratory rate increased, diminished breath sound, some coarse crackles ABDOMEN: Soft, nontender, liver spleen not palpable, no masses palpable. PSYCH: Alert and oriented x3; mood and affect anxious INVESTIGATIONS, reviewed in the clinical context: September 28: White count 19.1 hemoglobin 10.9 potassium 4.4 creatinine 0.62 September 27: White count 10.8 hemoglobin 15.3 platelets 238 sodium 135 potassium 4.3 creatinine 0.65. Procalcitonin 0.03 Influenza type A, type B, RSV, COVID-19: Not detected CT angio chest [August 26, 2024]: More than 50 nodules throughout the lungs. Left upper lung masslike consolidation. 58 x 32 mm. Some nodules of central cavitation. Lymphadenopathy. Negative for PE Chest x-ray film personally reviewed by me-patchy infiltrates. Left basilar consolidation/effusion Assessment plan: -Acute COPD exacerbation in a smoker. Made worse by known consolidation infiltrates. Procalcitonin negative. DuoNeb Q4. Symbicort. -Large left pleural effusion. Contributing to shortness of breath. Concerned about underlying malignancy. Left thoracentesis done September 28: Dr. Willson. Fluid sent off for studies including cytology. -Left upper lobe consolidation and multiple lung nodules. Suspicious for malignancy.. In a smoker. Bronchoscopy done August [address] ALVAREZ:-Results inconclusive could not rule out malignancy. Dr. Willson considering bronchoscopy for tissue in the next 24 to 48 hours -Doubt pneumonia. No antibiotics. Pulmonary following -Alcohol use disorder Patient was drinking close to a gallon prior to getting admitted to [facility] where she is currently under rehab. Last drink was about 5 weeks ago prior to admission -Essential hypertension Catapres. -Chronic nicotine dependence plus vaping Nicotine patch -Anxiety depression, peds anxiety uncontrolled Trazodone. Wellbutrin XL -Full code Continue current treatment plan. Possible bronchoscopy next 1 to 2 days. Past Medical History Past Medical History: Heart Failure, Fibromyalgia, Rheumatoid Arthritis (RA) Additional Past Medical History / Comment(s): endometriosis History of Any Multi-Drug Resistant Organisms: None Reported Past Surgical History: Section, Hernia Repair, Tubal Ligation Additional Past Surgical History / Comment(s): laproscopy Past Anesthesia/Blood Transfusion Reactions: No Reported Reaction Smoking Status: Current every day smoker, Vaper
[2024-09-28] MEDS: guaiFENesin-DM 100-10MG/5ML 10 ML CUP PO SCH (21:50)
--- NOTE | 2024-09-29 14:43 | P.PN ---
Progress Note - Text Progress Note Date: 09/29/24 Chief Complaint: Short of breath 49-year-old patient who follows with Dr. Ruddy Real. Chronic stable medical conditions include fibromyalgia, rheumatoid arthritis, endometriosis, anxiety depression, hypertension, GERD. Patient was recently at [facility] for alcohol rehab. Last drink about 5 weeks ago. Patient does vaping and also's cigarette smoking. August patient underwent bronchoscopy by Dr. ALVAREZ from pulmonary. Results are nonspecific. Malignancy could not be ruled out. Patient presents presents with progressive shortness of breath. Sleeps well because of coughing and shortness of breath. Bringing up significant sputum. No light in color. Appetite is okay. Patient was sent in by Dr. ALVAREZ for further workup. September 28: Slight improvement in breathing. Though still short of breath. Coughing up clear sputum. Discussed with Dr. Willson./[employer]. Considering bronchoscopy as a last 1 did not reveal good tissue samples. Patient remains on IV Solu-Medrol bronchodilators. September 29: Up in bed. Still short of breath. Some sputum. Cytology studies pending on pleural fluid. Suspicious for malignancy. Dr. Willson may consider bronchoscopy tomorrow.: Continue with bronchodilators and Symbicort. Add incentive spirometry. Active Medications Albuterol/Ipratropium (Ipratropium-Albuterol 3 Ml Neb) 3 ml INHALATION RT-Q4H PRN PRN Reason: shortness of breath Albuterol/Ipratropium (Ipratropium-Albuterol 3 Ml Neb) 3 ml INHALATION RT-Q4H [facility] Last Admin: 09/29/24 12:12 Dose: 3 ml Budesonide/Formoterol Fumarate (Symbicort 160-4.5 Mcg Inhaler) 1 puff INHALATION RT-BID [facility] Last Admin: 09/29/24 08:06 Dose: 1 puff Bupropion HCl (Bupropion Xl 300 Mg Tab.Er.24h) 300 mg PO DAILY [facility] Last Admin: 09/29/24 08:48 Dose: 300 mg Clonidine (Clonidine Hcl 0.1 Mg Tab) 0.1 mg PO BID [facility] Last Admin: 09/29/24 08:45 Dose: 0.1 mg Enoxaparin Sodium (Enoxaparin 40 Mg/0.4 Ml Syringe) 40 mg SQ DAILY [facility] Last Admin: 09/29/24 08:45 Dose: 40 mg Furosemide (Furosemide 20 Mg Tab) 20 mg PO DAILY [facility] Last Admin: 09/29/24 08:44 Dose: 20 mg Guaifenesin (Guaifenesin 600 Mg Tablet.Er) 1,200 mg PO Q12HR [facility] Last Admin: 09/29/24 08:45 Dose: 1,200 mg Guaifenesin/Dextromethorphan (Guaifenesin-Dm 100-10mg/5ml 10 Ml Cup) 10 ml PO Q6HR [facility] Last Admin: 09/29/24 11:45 Dose: 10 ml Sodium Chloride (Saline 0.9%) 1,000 mls @ 50 mls/hr IV .Q20H [facility] Last Admin: 09/29/24 06:37 Dose: 50 mls/hr Methylprednisolone Sodium Succinate (Methylprednisolone Sod Succi 40 Mg/Ml 1 Ml Vial) 40 mg IV Q12HR [facility] Last Admin: 09/29/24 08:45 Dose: 40 mg Miscellaneous Information (Pneumonia Protocol Utilized 1 Each Misc) 1 each PO ONCE PRN PRN Reason: Per Protocol Naloxone HCl (Naloxone 0.4 Mg/Ml 1 Ml Vial) 0.2 mg IV Q2M PRN PRN Reason: Opioid Reversal Naproxen (Naproxen 250 Mg Tab) 250 mg PO Q8H PRN PRN Reason: Pain Last Admin: 09/29/24 04:17 Dose: 250 mg Nicotine (Nicotine 14mg/24hr Patch) 1 patch TRANSDERM DAILY [facility] Last Admin: 09/29/24 08:44 Dose: 1 patch Pantoprazole Sodium (Pantoprazole 40 Mg Tablet) 40 mg PO DAILY [facility] Last Admin: 09/29/24 08:45 Dose: 40 mg Social history: . Lives with her mother. Significant water intake after 5 weeks ago when she was admitted to [facility]. Does vaping also smoke up to half a pack a day Physical examination: VITAL SIGNS: 98, 68, 16, 127 x 81, 96% on 4 L General: Sitting up in bed. Short of breath. A bit anxious EYES: Pupils equal. Conjunctiva alyce l. HEENT: External appearance of nose and ears normal, oral cavity grossly normal. NECK: JVD not raised; masses not palpable. HEART: First and second heart sounds are normal; no edema. LUNGS: Respiratory rate increased, diminished breath sound, some coarse crackles ABDOMEN: Soft, nontender, liver spleen not palpable, no masses palpable. PSYCH: Alert and oriented x3; mood and affect anxious INVESTIGATIONS, reviewed in the clinical context: September 28: White count 19.1 hemoglobin 10.9 potassium 4.4 creatinine 0.62 September 27: White count 10.8 hemoglobin 15.3 platelets 238 sodium 135 potassium 4.3 creatinine 0.65. Procalcitonin 0.03 Influenza type A, type B, RSV, COVID-19: Not detected CT angio chest [August 26, 2024]: More than 50 nodules throughout the lungs. Left upper lung masslike consolidation. 58 x 32 mm. Some nodules of central cavitation. Lymphadenopathy. Negative for PE Chest x-ray film personally reviewed by me-patchy infiltrates. Left basilar consolidation/effusion Assessment plan: -Acute COPD exacerbation in a smoker. Made worse by known consolidation infiltrates. Procalcitonin negative. DuoNeb Q4. Symbicort. -Large left pleural effusion. Contributing to shortness of breath. Concerned about underlying malignancy. Left thoracentesis done September 28: Dr. Willson. Fluid sent off for studies including cytology.-Pending -Left upper lobe consolidation and multiple lung nodules. Suspicious for malignancy.. In a smoker. Bronchoscopy done August [address] ALVAREZ:-Results inconclusive could not rule out malignancy. Dr. Willson considering bronchoscopy for tissue possible tomorrow -Doubt pneumonia. No antibiotics. Pulmonary following -Alcohol use disorder Patient was drinking close to a gallon prior to getting admitted to [facility] where she is currently under rehab. Last drink was about 5 weeks ago prior to admission -Essential hypertension Catapres. -Chronic nicotine dependence plus vaping Nicotine patch -Anxiety depression, peds anxiety uncontrolled Trazodone. Wellbutrin XL -Full code Discussed with patient. Increase activity. Up in chair. Await pleural fluid results. Past Medical History Past Medical History: Heart Failure, Fibromyalgia, Rheumatoid Arthritis (RA) Additional Past Medical History / Comment(s): endometriosis History of Any Multi-Drug Resistant Organisms: None Reported Past Surgical History: Section, Hernia Repair, Tubal Ligation Additional Past Surgical History / Comment(s): laproscopy Past Anesthesia/Blood Transfusion Reactions: No Reported Reaction Smoking Status: Current every day smoker, Vaper
--- NOTE | 2024-09-29 17:10 | P.PN ---
Subjective Progress Note Date: 09/29/24 This is a 49-year-old female patient who was referred from our clinic due to worsening shortness of breath. The patient is a smoker and she was hospitalized back in 08/27/2024, seen in consultation for abnormal CAT scan of the chest that showed left upper lobe masslike consolidation in addition to scattered multiple bilateral pulmonary nodules and mediastinal lymphadenopathy concerning for malignancy and diffuse metastatic disease. At that time, the patient's underwent a bronchoscopy on 08/30/2024 and a bronchioloalveolar lavage was done without any biopsies. The microbial cultures were essentially negative. MRI of the brain done showed no significant metastatic lesions. CAT scan of the abdom en and pelvis showed no acute abnormalities in the abdomen and pelvic area. Some nonspecific prominence in the left retroperitoneal and para aortic lymph node was noted measuring 10 mm in size. His past medical history is positive for rheumatoid arthritis, not receiving any immunosuppressive agents. She has also history of alcoholism when she has undergone previous rehabilitation at [facility] and she states that she is not drinking alcohol for now. She is known to have fibromyalgia and history of congestive heart failure. No hemoptysis. No pleurisy. Persistent cough without any significant sputum production. Progressive worsening in shortness of breath. A CTA of the chest was done on 09/27/2023 showing no evidence of any pulmonary embolism, interval development of a large left-sided pleural effusion, intelligible increase in left lung consolidation along with innumerable and pe rsistent bilateral diffuse pulmonary nodules and presence of mediastinal and bilateral hilar lymphadenopathy. Patient is currently on oxygen at 4 L with a pulse ox of 94%. Connective tissue disease markers including RF, JES and PNC ANCA were all negative. On 09/28/2024, the patient is feeling better and the patient is less short of breath following a thoracentesis of the left lung which was performed yesterday. No complications. The patient continues to have some dry cough. Meanwhile, the fluid analysis of the pleural fluid showed an exudate with elevated protein and LDH. Fluid cytology still pending. Will set up this patient for bronchoscopy and endobronchial ultrasound with next 24 to 48 hours. This will be needed to sample the mediastinal lymph nodes for tissue diagnosis as there is increased suspicion for metastatic carcinoma. On 09/29/2024, clinically unchanged. Awaiting the pleural fluid cytology. Discussed the case with the pathologist. Will have for results of the next 24 hours. Based on that, the bronchoscopy and the endobronchial ultrasound was postponed till tomorrow if needed. Meanwhile, the patient remains short of breath and she continues to have episodes of cough. She is currently on 4 L of oxygen by nasal cannula air oxygen with a pulse ox of 92%. No new labs are available from today. Condition remains essentially unchanged and stable. Further recommendations are to be done based on the results of the pleural fluid cytology. No new labs are available from today. Objective - Vital Signs Vital signs: Vital Signs Temp 97.9 F 09/29/24 08:00 Pulse 80 09/29/24 08:17 Resp 18 09/29/24 08:00 BP 125/82 09/29/24 08:00 Pulse Ox 95 09/29/24 08:00 FiO2 Intake & Output 09/28/24 09/29/24 09/29/24 18:59 06:59 18:59 Intake Total 2122 20 Balance 2122 20 Weight 67.9 kg Intake: IV 20 20 Invasive Line 2 20 20 Intake, IV Titration 400 Amount Sodium Chloride 0.9% 1, 400 000 ml @ 50 mls/hr IV . Q20H [facility] Rx#:[id number] Oral 1702 Other: Voiding Method Toilet Toilet Toilet # Voids 2 - Exam GENERAL EXAM: Alert, pleasant 49-year-old female, resting in bed, on 4 L of oxygen nasal cannula and breathing is less labored compared to yesterday. HEAD: Normocephalic. EYES: Normal reaction of pupils, equal size. NOSE: Clear with pink turbinates. THROAT: No erythema or exudates. NECK: No masses, no JVD. CHEST: No chest wall deformity. LUNGS: Equal air entry with few scattered rhonchi. Adequate air entry in the left lung base although the breath sounds left lower lobe remain slightly diminished. CVS: S1 and S2 normal with no audible murmur, regular rhythm. ABDOMEN: No hepatosplenomegaly, normal bowel sounds, no guarding or rigidity. SPINE: No scoliosis or deformity SKIN: No rashes CENTRAL NERVOUS SYSTEM: No focal deficits, tone is normal in all 4 extremities. EXTREMITIES: There is no peripheral edema. No clubbing, no cyanosis. Pe ripheral pulses are intact. - Labs CBC & Chem 7: 09/28/24 06:32 09/28/24 06:32 Labs: Microbiology - Last 24 Hours (Table) 09/27/24 15:55 Blood Culture - Preliminary Blood 09/27/24 15:00 Gram Stain - Preliminary Pleural Fluid Body Fluid Culture - Preliminary 09/28/24 00:36 Gram Stain - Preliminary Sputum Assessment and Plan Plan: Acute hypoxic respiratory failure, currently on 4 L of oxygen by nasal cannula. CT of the chest shows left upper lobe consolidation, innumerable bilateral pulmonary nodules in addition mediastinal lymphadenopathy and a new large left-s ided pleural effusion REVIEWED his respiratory failure. Findings are highly suspicious for malignancy, highly suspect lung cancer. The patient's condition has improved following a thoracentesis and removal of 2.2 L of pleural fluid from the left hemithorax performed on 09/27/2024. Pleural fluid is exudative. Cytology is pending Multiple bilateral pulmonary nodules, highly suggestive of metastatic disease in addition to mediastinal lymphadenopathy Left-sided pleural effusion, possibly malignant. Patient is postthoracentesis with removal of 2.2 L of pleural fluid from the left lung. Exudate. Cytology is pending. shortness of breath and cough suspect secondary to left upper lung consolidation with scattered pulmonary nodules. Procalcitonin negative. Rheumatoid factor negative. JES negative. P-ANCA c-ANCA negative. Legionella urine antigen negative. Chronic and ongoing tobacco dependence History of vaping Alcoholism, currently residing in [facility] History of rheumatoid arthritis, treated over 20 years ago without much improvement and she has not been on any medications since and the patient's rheumatoid factor is negative Fibromyalgia Depression History of congestive heart failure Plan: Clinically unchanged Awaiting pleural fluid cytology Discussed the case with pathology. Some abnormal cells were identified on the cellblock. Highly suspicious for malignancy. Awaiting final pathologic report probably next 24 hours.. Will set up this patient for bronchoscopy and endobronchial ultrasound if a final diagnosis not achieved. Titrate oxygen flow to maintain saturation above 90% Procalcitonin negative Antibiotics discontinued Continue bronchodilators, steroids Prognosis poor based on above-mentioned comorbidities. Will continue to follow
[2024-09-29] MEDS: ALPRAZolam 0.5 MG TAB PO PRN (18:47)
[2024-09-29 20:47] LABS: Glucose,Whole Blood 129 mg/dL (70-110)
[2024-09-30 12:43] VITALS: BP 119/80; RESP 18; TEMP 97.8
--- NOTE | 2024-09-30 13:50 | XR ---
EXAMINATION TYPE: XR chest 2V DATE OF EXAM: 09/30/2024 1:44 PM COMPARISON: Chest radiographs from 09/28/2024, CTA chest 09/27/2024. TECHNIQUE: XR chest 2V Frontal and lateral views of the chest. CLINICAL INDICATION:Female, 49 years old with history of Pleural effusion; FINDINGS: Lungs/Pleura: No pneumothorax. Increasing moderate sized left pleural effusion. Redemonstration of le ft upper lobe suprahilar pulmonary masslike consolidation. Redemonstration of innumerable pulmonary n odules throughout both lungs. Pulmonary vascularity: Unremarkable. Heart/mediastinum: Cardiomediastinal silhouette is partially obscured due to overlying and adjacent o pacities. Similar bilateral hilar prominence related to known adenopathy. Musculoskeletal: No acute osseous pathology. IMPRESSION: 1. Increasing moderate size left pleural effusion. 2. Redemonstration of innumerable pulmonary nodules with persistent left suprahilar masslike consoli dation. Similar bilateral hilar adenopathy. Again highly concerning for malignancy with metastasis. [facility], , 09/30/2024 1:48 PM
[2024-09-30 15:46] VITALS: PULSE 82
--- NOTE | 2024-09-30 16:38 | P.PN ---
Subjective Progress Note Date: 09/30/24 This is a 49-year-old female patient who was referred from our clinic due to worsening shortness of breath. The patient is a smoker and she was hospitalized back in 08/27/2024, seen in consultation for abnormal CAT scan of the chest that showed left upper lobe masslike consolidation in addition to scattered multiple bilateral pulmonary nodules and mediastinal lymphadenopathy concerning for malignancy and diffuse metastatic disease. At that time, the patient's underwent a bronchoscopy on 08/30/2024 and a bronchioloalveolar lavage was done without any biopsies. The microbial cultures were essentially negative. MRI of the brain done showed no significant metastatic lesions. CAT scan of the abdom en and pelvis showed no acute abnormalities in the abdomen and pelvic area. Some nonspecific prominence in the left retroperitoneal and para aortic lymph node was noted measuring 10 mm in size. His past medical history is positive for rheumatoid arthritis, not receiving any immunosuppressive agents. She has also history of alcoholism when she has undergone previous rehabilitation at [facility] and she states that she is not drinking alcohol for now. She is known to have fibromyalgia and history of congestive heart failure. No hemoptysis. No pleurisy. Persistent cough without any significant sputum production. Progressive worsening in shortness of breath. A CTA of the chest was done on 09/27/2023 showing no evidence of any pulmonary embolism, interval development of a large left-sided pleural effusion, intelligible increase in left lung consolidation along with innumerable and pe rsistent bilateral diffuse pulmonary nodules and presence of mediastinal and bilateral hilar lymphadenopathy. Patient is currently on oxygen at 4 L with a pulse ox of 94%. Connective tissue disease markers including RF, JES and PNC ANCA were all negative. On 09/28/2024, the patient is feeling better and the patient is less short of breath following a thoracentesis of the left lung which was performed yesterday. No complications. The patient continues to have some dry cough. Meanwhile, the fluid analysis of the pleural fluid showed an exudate with elevated protein and LDH. Fluid cytology still pending. Will set up this patient for bronchoscopy and endobronchial ultrasound with next 24 to 48 hours. This will be needed to sample the mediastinal lymph nodes for tissue diagnosis as there is increased suspicion for metastatic carcinoma. On 09/29/2024, clinically unchanged. Awaiting the pleural fluid cytology. Discussed the case with the pathologist. Will have for results of the next 24 hours. Based on that, the bronchoscopy and the endobronchial ultrasound was postponed till tomorrow if needed. Meanwhile, the patient remains short of breath and she continues to have episodes of cough. She is currently on 4 L of oxygen by nasal cannula air oxygen with a pulse ox of 92%. No new labs are available from today. Condition remains essentially unchanged and stable. Further recommendations are to be done based on the results of the pleural fluid cytology. No new labs are available from today. On 09/30/2024, the patient is essentially unchanged. She continues to have some shortness of breath and ongoing symptoms of cough. Repeat chest x-ray was done today and the patient has a small size left-sided pleural effusion. Redemonstration of the multiple pulmonary nodules and a left suprahilar masslike consolidation. I had a discussion with the the pathologist, Dr. Colvin and preliminary findings from the pleural fluid is consistent with pulmonary adenocarcinoma. A final report has not been given yet. Discussed the findings with the patient and the primary care. The patient will be released home on home O2 to be followed up on outpatient basis with cardiology. No need for bronchoscopy at this point in time. Objective - Vital Signs Vital signs: Vital Signs Temp 97.8 F 09/30/24 12:12 Pulse 77 09/30/24 12:12 Resp 18 09/30/24 12:12 BP 119/80 09/30/24 12:12 Pulse Ox 93 L 09/30/24 12:12 FiO2 Intake & Output 09/29/24 09/30/24 09/30/24 18:59 06:59 18:59 Intake Total 540 Balance 540 Weight 68.5 kg Intake: Oral 540 Other: Voiding Method Toilet # Voids 7 # Bowel Movements 1 - Exam GENERAL EXAM: Alert, pleasant 49-year-old female, resting in bed, on 4 L of oxygen nasal cannula and breathing is less labored compared to yesterday. HEAD: Normocephalic. EYES: Normal reaction of pupils, equal size. NOSE: Clear with pink turbinates. THROAT: No erythema or exudates. NECK: No masses, no JVD. CHEST: No chest wall deformity. LUNGS: Equal air entry with few scattered rhonchi. Adequate air entry in the left lung base although the breath sounds left lower lobe remain slightly dim inished. CVS: S1 and S2 normal with no audible murmur, regular rhythm. ABDOMEN: No hepatosplenomegaly, normal bowel sounds, no guarding or rigidity. SPINE: No scoliosis or deformity SKIN: No rashes CENTRAL NERVOUS SYSTEM: No focal deficits, tone is normal in all 4 extremities. EXTREMITIES: There is no peripheral edema. No clubbing, no cyanosis. Peripheral pulses are intact. - Labs CBC & Chem 7: 09/28/24 06:32 09/28/24 06:32 Labs: Abnormal Lab Results - Last 24 Hours (Table) 09/29/24 Range/Units 20:46 POC Glucose (mg/dL) 129 H (70-110) mg/dL Microbiology - Last 24 Hours (Table) 09/28/24 00:36 Gram Stain - Final Sputum Sputum Culture - Final 09/27/24 15:00 Anaerobic Culture - Preliminary Pleural Fluid 09/27/24 15:55 Blood Culture - Preliminary Blood 09/27/24 15:00 Gram Stain - Preliminary Pleural Fluid Body Fluid Culture - Preliminary Assessment and Plan Plan: Acute hypoxic respiratory failure, currently on 4 L of oxygen by nasal cannula. CT of the chest shows left upper lobe consolidation, innumerable bilateral pulmonary nodules in addition mediastinal lymphadenopathy and a new large left- sided pleural effusion REVIEWED his respiratory failure. Findings are highly suspicious for malignancy, highly suspect lung cancer. The patient's condition has improved following a thoracentesis and removal of 2.2 L of pleural fluid from the left hemithorax performed on 09/27/2024. Pleural fluid is exudative. Cytology findings are consistent with pulm adenocarcinoma and those are preliminary findings. Multiple bilateral pulmonary nodules, highly suggestive of metastatic disease in addition to mediastinal lymphadenopathy Left-sided pleural effusion, possibly malignant. Patient is postthoracentesis with removal of 2.2 L of pleural fluid from the left lung. Exudate. Primary findings are consistent with pulm adenocarcinoma. shortness of breath and cough suspect secondary to left upper lung consolidation with scattered pulmonary nodules. Procalcitonin negative. Rheumatoid factor negative. JES negative. P-ANCA c-ANCA negative. Legionella urine antigen negative. Chronic and ongoing tobacco dependence History of vaping Alcoholism, currently residing in [facility] History of rheumatoid arthritis, treated over 20 years ago without much improvement and she has not been on any medications since and the patient's rheumatoid factor is negative Fibromyalgia Depression History of congestive heart failure Plan: Clinically unchanged A preliminary findings are consistent with pulmonary adenocarcinoma from the pleural fluid on the left Chest x-ray shows stable left-sided pleural effusion Titrate oxygen flow to maintain saturation above 90% Continue bronchodilators, The patient to be discharged home on a prednisone burst taper The patient to be followed up by medical oncology and pulmonary Outpatient PET scan has been scheduled for this patient Prognosis poor Arrange home O2
--- NOTE | 2024-09-30 16:39 | P.DS ---
Providers Date of admission: 09/27/24 15:21 Expected date of discharge: 09/30/24 Attending physician: Homero Celaya Consults: 09/27/24 15:19 Consult Physician Routine Consulting Provider: Alicia Willson Consult Reason/Comments: pleural effusion, pulmonary nodules, reactive airway disease, hypoxic RF Do you want consulting provider notified?: Already Contacted 09/30/24 13:12 Consult Physician Routine Consulting Provider: Brian Serrato Consult Reason/Comments: lung CA Do you want consulting provider notified?: Already Contacted Primary care physician: Ruddy Real [facility] Course: Chief Complaint: Short of breath 49-year-old patient who follows with Dr. Ruddy Real. Chronic stable medical conditions include fibromyalgia, rheumatoid arthritis, endometriosis, anxiety depression, hypertension, GERD. Patient was recently at [place] for alcohol rehab. Last drink about 5 weeks ago. Patient does vaping and also's cigarette smoking. August patient underwent bronchoscopy by Dr. SANTOS from pulmonary. Results are nonspecific. Malignancy could not be ruled out. Patient presents presents with progressive shortness of breath. Sleeps well because of coughing and shortness of breath. Bringing up significant sputum. No light in color. Appetite is okay. Patient was sent in by Dr. SANTOS for further workup. September 28: Slight improvement in breathing. Though still short of breath. Coughing up clear sputum. 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 Considering bronchoscopy as a last 1 did not reveal good tissue samples. Patient remains on IV Solu-Medrol bronchodilators. September 29: Up in bed. Still short of breath. Some sputum. Cytology studies pending on pleural fluid. Suspicious for malignancy. Dr. Willson may consider bronchoscopy tomorrow.: Continue with bronchodilators and Symbicort. Add incentive spirometry. September 30: Spoke to Dr. Willson. Cytology showing adenocarcinoma. Patient to be discharged home on oxygen. Spoke to Ruddy Jordan from oncology. Patient will follow-up with Dr. Serrato. Patient also to follow-up early next week with Dr. Duarte from pulmonary. Requesting another prescription of Atarax for anxiety as prescribed by psychiatrist on last admission. Spoke to social media job [employer] regarding home oxygen. Discussion and discharge planning more than 35 minutes Social history: . Lives with her mother. Significant water intake after 5 weeks ago when she was admitted to [place]. Does vaping also smoke up to half a pack a day Physical examination: VITAL SIGNS: 97.8, 82, 16, 119 x 80, 94% on 4 L General: Sitting up in bed. Short of breath. A bit anxious EYES: Pupils equal. Conjunctiva alyce l. HEENT: External appearance of nose and ears normal, oral cavity grossly normal. NECK: JVD not raised; masses not palpable. HEART: First and second heart sounds are normal; no edema. LUNGS: Respiratory rate increased, diminished breath sound, some coarse crackles ABDOMEN: Soft, nontender, liver spleen not palpable, no masses palpable. PSYCH: Alert and oriented x3; mood and affect anxious INVESTIGATIONS, reviewed in the clinical context: Pleural fluid cytology: Preliminary report per Dr. Willson adenocarcinoma September 28: White count 19.1 hemoglobin 10.9 potassium 4.4 creatinine 0.62 September 27: White count 10.8 hemoglobin 15.3 platelets 238 sodium 135 potassium 4.3 creatinine 0.65. Procalcitonin 0.03 Influenza type A, type B, RSV, COVID-19: Not detected CT angio chest [August 26, 2024]: More than 50 nodules throughout the lungs. Left upper lung masslike consolidation. 58 x 32 mm. Some nodules of central cavitation. Lymphadenopathy. Negative for PE Chest x-ray film personally reviewed by me-patchy infiltrates. Left basilar consolidation/effusion Assessment plan: -Acute COPD exacerbation in a smoker. Made worse by known consolidation infiltrates. Procalcitonin negative. DuoNeb Q4. Symbicort. -Large left pleural effusion. Contributing to shortness of breath. Preliminary report showing adenocarcinoma Left thoracentesis done September 28: Dr. Willson. Formal results of the pleural fluid pending -Acute hypoxic respiratory failure from underlying COPD/pleural effusion Being discharged on 3 to 4 L of oxygen -Left upper lobe consolidation and multiple lung nodules. Probable adenocarcinoma on preliminary report. In a smoker. Bronchoscopy done August [address] SANTOS:-Results inconclusive could not rule out malignancy. Patient follow-up with Dr. Santos outpatient next week. Patient also follow Dr. Serrato from oncology next week -Doubt pneumonia. No antibiotics. Pulmonary following -Alcohol use disorder Patient was drinking close to a gallon prior to getting admitted to [place] where she is currently under rehab. Last drink was about 5 weeks ago prior to admission -Essential hypertension Catapres. -Chronic nicotine dependence plus vaping Nicotine patch -Anxiety depression, anxiety Trazodone. Wellbutrin XL Atarax 25 mg every 8 as needed for anxiety -Full code Disposition: Home Past Medical History Past Medical History: Heart Failure, Fibromyalgia, Rheumatoid Arthritis (RA) Additional Past Medical History / Comment(s): endometriosis History of Any Multi-Drug Resistant Organisms: None Reported Past Surgical History: Section, Hernia Repair, Tubal Ligation Additional Past Surgical History / Comment(s): laproscopy Past Anesthesia/Blood Transfusion Reactions: No Reported Reaction Smoking Status: Current every day smoker, Vaper Plan - Discharge Summary Discharge Rx Participant: No New Discharge Prescriptions: New predniSONE 10 mg PO DAILY #30 tab hydrOXYzine pamoate [Vistaril] 25 mg PO TID PRN #30 cap PRN Reason: Anxiety Ipratropium-Albuterol Nebulize [Duoneb 0.5 mg-3 mg/3 ml Soln] 3 ml INHALATION QID #120 each Naproxen [Naprosyn] 250 mg PO Q8H PRN #30 tab PRN Reason: Pain Continue cloNIDine HCL 0.1 mg PO BID buPROPion XL [Wellbutrin XL] 300 mg PO DAILY Budesonide/Formoterol Fumarate [Symbicort 160-4.5 Mcg Inhaler] 1 puff INHALATION RT-BID guaiFENesin [Mucinex] 1,200 mg PO Q12H Potassium Chloride ER [K-Dur 10] 10 meq PO DAILY Sennosides/Docusate Sodium [Senna Plus 8.6-50 mg Softgel] 1 tab PO BID PRN PRN Reason: Constipation Pantoprazole [Protonix] 40 mg PO DAILY Linaclotide [Linzess] 290 mcg PO DAILY Fluticasone Nasal [place] [Flonase Nasal [place]] 1 spray EA NOSTRIL DAILY Nicotine 14Mg/24Hr Patch [Habitrol] 1 patch TRANSDERM DAILY Furosemide [Lasix] 20 mg PO DAILY Discharge Medication List Fluticasone Nasal [place] [Flonase Nasal [place]] 1 spray EA NOSTRIL DAILY 08/26/24 [History] Linaclotide [Linzess] 290 mcg PO DAILY 08/26/24 [History] Pantoprazole [Protonix] 40 mg PO DAILY 08/26/24 [History] Sennosides/Docusate Sodium [Senna Plus 8.6-50 mg Softgel] 1 tab PO BID PRN 08/26/24 [History] buPROPion XL [Wellbutrin XL] 300 mg PO DAILY 08/26/24 [History] cloNIDine HCL 0.1 mg PO BID 08/26/24 [History] Budesonide/Formoterol Fumarate [Symbicort 160-4.5 Mcg Inhaler] 1 puff INHALATION RT-BID 09/27/24 [History] Furosemide [Lasix] 20 mg PO DAILY 09/27/24 [History] Nicotine 14Mg/24Hr Patch [Habitrol] 1 patch TRANSDERM DAILY 09/27/24 [History] Potassium Chloride ER [K-Dur 10] 10 meq PO DAILY 09/27/24 [History] guaiFENesin [Mucinex] 1,200 mg PO Q12H 09/27/24 [History] Ipratropium-Albuterol Nebulize [Duoneb 0.5 mg-3 mg/3 ml Soln] 3 ml INHALATION QID #120 each 09/30/24 [Rx] Naproxen [Naprosyn] 250 mg PO Q8H PRN #30 tab 09/30/24 [Rx] hydrOXYzine pamoate [Vistaril] 25 mg PO TID PRN #30 cap 09/30/24 [Rx] predniSONE 10 mg PO DAILY #30 tab 09/30/24 [Rx] Follow up Appointment(s)/Referral(s): Brian Serrato [STAFF PHYSICIAN] - 10/05/24 2:00 pm Ruddy Real MD [Primary Care Provider] - 1-2 days (The office is closed please call and make follow up appointment.) Serg Santos DO [Doctor of Osteopathic Medicine] - 10/05/24 9:15 am Patient Instructions/Handouts: Naproxen (By mouth), Prednisone (By mouth), Hydroxyzine (By mouth), Ipratropium/Albuterol (By breathing), Lung Cancer (DC), Using Oxygen at Home (DC), Pleural Effusion (DC), Acute Respiratory Failure (GEN) Activity/Diet/Wound Care/Special Instructions: Arrange home oxygen
--- NOTE | 2024-09-30 19:34 | P.CONS ---
History of Present Illness - Reason for Consult Consult date: 09/30/24 lung cancer Requesting physician: Alicia Willson - Chief Complaint SOB - History of Present Illness This is a 49-year-old white female patient, with a complicated past medical history. The patient has a longstanding history of heavy alcohol use, rheumatoid arthritis, as well as liver cirrhosis. She was seen on consult on 08/27/24 for lung nodules and mediastinal LAD. She had presented for upper mid left chest pain, radiating to the shoulder, and sometimes across to the right. She had noted some intermittent wheezing, and increase in her baseline cough with expectoration. There was also some associated shortness of breath. Her symptoms were progressive during her stay at [place], due to which she was brought into the ER. Chest x-ray showed consolidative opacity in the left upper lobe, and multiple other lung nodules, new from prior chest x-ray in 2019. CT angiogram was negative for pulmonary embolus, but showed masslike consolidation in the left suprahilar area, 5.8 cm in maximal extent, with multiple bilateral lung nodules, more than 50. There was also mediastinal adenopathy, most prominent in the subcarinal area. Some of the peripheral lung nodules showed some central cavitation. The patient was admitted and started on antibiotics for possible pneumonia, related to the left upper lobe. CT of the abdomen and pelvis showing no acute abnormality in the abdomen/pelvis. Nonspecific mildly prominent single left retroperitoneal para-aortic lymph node measuring 10 mm. Innumerable pulmonary nodules in the partially visualized lower lungs. MRI brain showing no suspicious abnormalities to suggest metastatic disease. Patient underwent bronchoscopy with no mass or lesions noted. Cytology was negative for malignancy. Patient was scheduled for f/u for outpt PET CT and f/u with pulmonology. The patient denies any prior history of malignancy. She has a longstanding history of smoking since her teens, about a pack a day, and between one third to half pack on days that she also vapes. She has a longstanding history of heavy alcohol use, and states that she was diagnosed with "cirrhosis" several years ago. She quit alcohol for some years at that time and according to her her liver improved. However she did start drinking again. She has a history of rheumatoid arthritis and was on treatment for the same with oral medications, in her 20s. However she states that she stopped following up for that. No history of any persistent fevers, night sweats or weight loss. The patient states that a chest x-ray in 2019 or had shown a few lung nodules, and she was supposed to have annual imaging for surveillance, but she did not follow-up for the same. Patient represented to the emergency room for complaints of shortness of breath. Patient reports since discharge shortness of breath has become progressive causing her to present for further evaluation. Upon admit CTA chest was obtained which was negative for pulmonary embolism. Interval increase in left lung consolidation. Interval development of large left pleural effusion. Persistent bilateral diffuse innumerable pulmonary nodules and mediastinal and bilateral hilar lymphadenopathy. She subsequently underwent thoracentesis on 09/27/24 with 2.3L of turbid colored fluid removed. Cytology was positive for metastatic non-small cell carcinoma compatible with pulmonary adenocarcinoma. Review of Systems 10 point ROS is negative except as stated in the HPI Past Medical History Past Medical History: Heart Failure, Fibromyalgia, Rheumatoid Arthritis (RA) Additional Past Medical History / Comment(s): endometriosis History of Any Multi-Drug Resistant Organisms: None Reported Past Surgical History: Section, Hernia Repair, Tubal Ligation Additional Past Surgical History / Comment(s): laproscopy Past Anesthesia/Blood Transfusion Reactions: No Reported Reaction Past Psychological History: Anxiety, Depression Smoking Status: Current every day smoker Past Alcohol Use History: Abuse, Daily Past Drug Use History: None Reported - Past Family History Mother Family Medical History: Hypertension Father Family Medical History: COPD Medications and Allergies Home Medications Medication Instructions Recorded Confirmed Type Fluticasone Nasal [place] [Flonase 1 spray EA NOSTRIL DAILY 08/26/24 09/27/24 History Nasal [place]] Linaclotide [Linzess] 290 mcg PO DAILY 08/26/24 09/27/24 History Pantoprazole [Protonix] 40 mg PO DAILY 08/26/24 09/27/24 History Sennosides/Docusate Sodium [Senna 1 tab PO BID PRN 08/26/24 09/27/24 History Plus 8.6-50 mg Softgel] buPROPion XL [Wellbutrin XL] 300 mg PO DAILY 08/26/24 09/27/24 History cloNIDine HCL 0.1 mg PO BID 08/26/24 09/27/24 History Budesonide/Formoterol Fumarate 1 puff INHALATION RT-BID 09/27/24 09/27/24 History [Symbicort 160-4.5 Mcg Inhaler] Furosemide [Lasix] 20 mg PO DAILY 09/27/24 09/27/24 History Nicotine 14Mg/24Hr Patch [Habitrol] 1 patch TRANSDERM DAILY 09/27/24 09/27/24 History Potassium Chloride ER [K-Dur 10] 10 meq PO DAILY 09/27/24 09/27/24 History guaiFENesin [Mucinex] 1,200 mg PO Q12H 09/27/24 09/27/24 History Ipratropium-Albuterol Nebulize 3 ml INHALATION QID #120 each 09/30/24 Rx [Duoneb 0.5 mg-3 mg/3 ml Soln] Naproxen [Naprosyn] 250 mg PO Q8H PRN #30 tab 09/30/24 Rx hydrOXYzine pamoate [Vistaril] 25 mg PO TID PRN #30 cap 09/30/24 Rx predniSONE 10 mg PO DAILY #30 tab 09/30/24 Rx Allergies Allergy/AdvReac Type Severity Reaction Status Date / Time latex Allergy Rash/Hives Verified 09/27/24 13:58 Physical Exam Vitals: Vital Signs Temp Pulse Pulse Resp BP Pulse Ox 09/30/24 12:12 97.8 F 77 18 119/80 93 L 09/30/24 12:04 86 09/30/24 11:54 80 09/30/24 09:19 84 09/30/24 09:10 82 95 09/30/24 07:20 97.6 F 56 L 20 156/95 96 09/30/24 00:00 97.6 F 78 16 122/81 97 09/29/24 20:15 88 09/29/24 20:07 82 09/29/24 20:00 98.1 F 77 16 141/93 92 L 09/29/24 16:15 82 09/29/24 16:02 86 Intake and Output 09/29/24 09/30/24 09/30/24 22:59 06:59 14:59 Intake Total 540 Balance 540 Intake: Oral 540 Other: # Voids 7 # Bowel Movements 1 Weight 68.5 kg - Constitutional General appearance: average body habitus, no acute distress - EENT Eyes: anicteric sclerae, EOMI - Respiratory Respiratory: left: diminished - Cardiovascular Rhythm: regular - Gastrointestinal General gastrointestinal: soft, no tenderness - Integumentary Integumentary: no cyanotic, no jaundiced - Neurologic Neurologic: CNII-XII intact - Musculoskeletal Musculoskeletal: strength equal bilaterally - Psychiatric Psychiatric: A&O x's 3 Results CBC & Chem 7: 09/28/24 06:32 09/28/24 06:32 Labs: Abnormal Lab Results - Last 24 Hours (Table) 09/29/24 Range/Units 20:46 POC Glucose (mg/dL) 129 H (70-110) mg/dL Microbiology - Last 24 Hours (Table) 09/28/24 00:36 Gram Stain - Final Sputum Sputum Culture - Final 09/27/24 15:00 Anaerobic Culture - Preliminary Pleural Fluid 09/27/24 15:55 Blood Culture - Preliminary Blood 09/27/24 15:00 Gram Stain - Preliminary Pleural Fluid Body Fluid Culture - Preliminary CT scan - chest: report reviewed Assessment and Plan (1) Adenocarcinoma, lung Status: Acute Priority: High Code(s): C34.90 - MALIGNANT NEOPLASM OF UNSP PART OF UNSP BRONCHUS OR LUNG SNOMED Code(s): 939231065 (2) Pleural effusion Status: Acute Priority: High Code(s): J90 - PLEURAL EFFUSION, NOT ELSEWHERE CLASSIFIED SNOMED Code(s): 88922338 (3) Pulmonary nodules Status: Acute Priority: High Code(s): R91.8 - OTHER NONSPECIFIC ABNORMAL FINDING OF LUNG FIELD SNOMED Code(s): 447781972 Plan: Metastatic lung adenocarcinoma: Represented with persisting SOB. Was seen on consult on 08/27/24 for pulmonary nodules and mediastinal LAD. Patient underwent bronchoscopy with no mass or lesions noted. Cytology was negative for malignancy. Patient was scheduled for outpt PET CT and f/u with pulmonology. During that admission, CT of the abdomen and pelvis showing no acute abnormality in the abdomen/pelvis. Nonspecific mildly prominent single left retroperitoneal para-aortic lymph node measuring 10 mm. Innumerable pulmonary nodules in the partially visualized lower lungs. MRI brain showing no suspicious abnormalities to suggest metastatic disease. -CTA chest on admit was negative for pulmonary embolism. Interval increase in left lung consolidation. Interval development of large left pleural effusion. Persistent bilateral diffuse innumerable pulmonary nodules and mediastinal and bilateral hilar lymphadenopathy. -Underwent thoracentesis on 09/27/24 with 2.3L of turbid colored fluid removed. Cytology was positive for metastatic non-small cell carcinoma compatible with pulmonary adenocarcinoma -Discussed diagnosis, treatment, and goals of care at todays visit. Case discussed with pulmonology -Will obtain NM bone scan to complete staging -NGS and PDL-1 requested on cytology -Clinic f/u upon discharge Dr attests: I have seen and examined pt, performed H&P, developed impression and plan of care. Discussed with dictator. Agree with documentation, dictated as a scribe
== END 2024-09-30 17:47 | disposition home or self-care (01) | DRG 136 ==
LOC: EC 11:47 → 3SCARD 15:21 → 5NMEDONC 09-29 11:27
PROVIDERS: ADMIT Hospitalist; ATTEND Hospitalist
PROC: 0W9B3ZZ Drainage of Left Pleural Cavity, Percutaneous Approach (ICD-10-PCS; principal; 2024-09-27)
DX: C34.12 Malignant neoplasm of upper lobe, left bronchus or lung (principal); J91.0 Malignant pleural effusion; J96.01 Acute respiratory failure with hypoxia; J44.1 Chronic obstructive pulmonary disease with (acute) exacerbation; F32.A Depression, unspecified; F41.9 Anxiety disorder, unspecified; I50.9 Heart failure, unspecified; I11.0 Hypertensive heart disease with heart failure; K21.9 Gastro-esophageal reflux disease without esophagitis; M79.7 Fibromyalgia; M06.9 Rheumatoid arthritis, unspecified; F17.210 Nicotine dependence, cigarettes, uncomplicated; F10.20 Alcohol dependence, uncomplicated; Z79.899 Other long term (current) drug therapy; Z91.040 Latex allergy status; Z79.51 Long term (current) use of inhaled steroids; Z82.49 Family history of ischemic heart disease and other diseases of the circulatory system
CPT/HCPCS: 36415; 71045; 71046; 71275; 80053; 81003; 82945; 83605; 83615; 83735; 83880; 84145; 84157; 84484; 85025; 85379; 85610; 85730; 87040; 87070; 87075; 87205; 87449; 87636; 88108; 88305; 88341; 88342; 89050; 93005; 94640; 94760; 96361; 96365; 96367; 96375; 99291

== ENCOUNTER 2024-10-07 15:11 | Inpatient (IN) | payer OTHER ==
--- NOTE | 2024-10-07 15:42 | ED ---
SOB HPI - General Chief Complaint: Shortness of Breath Stated Complaint: GRAZYNA Time Seen by Provider: 10/07/24 15:27 Source: patient, RN notes reviewed Mode of arrival: wheelchair Limitations: no limitations - History of Present Illness Initial Comments: This is a 49-year-old female with history of stage IV lung cancer and O2 dependence presenting with shortness of breath x 7 days. Patient states she had 2.3 L of fluid drained from the left lung about 1 week ago. States she began having progressively worsening shortness of breath since completion of last effusion drainage. States she has an appointment with Dr. Vanegas next week but feels she is unable to wait until then to have possible progressing effusion addressed. States she would prefer to have a permanent drain/catheter in place if possible. Denies chest pain, dizziness, AMS, ALOC. MD Complaint: shortness of breath Onset/Timin -: days(s) Improves With: oxygen Worsens With: lying flat, exertion, movement Known History Of: congestive heart failure, other (Pleural effusion) Treatments Prior to Arrival: oxygen - Related Data Home Medications Medication Instructions Recorded Confirmed Fluticasone Nasal [place] [Flonase 1 spray EA NOSTRIL DAILY 08/26/24 10/07/24 Nasal [place]] Linaclotide [Linzess] 290 mcg PO DAILY 08/26/24 10/07/24 Pantoprazole [Protonix] 40 mg PO DAILY 08/26/24 10/07/24 Sennosides/Docusate Sodium [Senna 1 tab PO BID PRN 08/26/24 10/07/24 Plus 8.6-50 mg Softgel] cloNIDine HCL 0.1 mg PO BID 08/26/24 10/07/24 Budesonide/Formoterol Fumarate 1 puff INHALATION RT-BID 09/27/24 10/07/24 [Symbicort 160-4.5 Mcg Inhaler] Furosemide [Lasix] 20 mg PO DAILY 09/27/24 10/07/24 Nicotine 14Mg/24Hr Patch [Habitrol] 1 patch TRANSDERM DIRECTED 09/27/24 10/07/24 Potassium Chloride ER [K-Dur 10] 10 meq PO DAILY 09/27/24 10/07/24 guaiFENesin [Mucinex] 1,200 mg PO Q12H 09/27/24 10/07/24 Ipratropium-Albuterol Nebulize 3 ml INHALATION RT-QID 10/07/24 10/07/24 [Duoneb 0.5 mg-3 mg/3 ml Soln] Nicotine 21Mg/24Hr Patch [Habitrol] 1 patch TRANSDERM DIRECTED 10/07/24 10/07/24 buPROPion XL [Wellbutrin XL] 150 mg PO DAILY 10/07/24 10/07/24 Previous Rx's Medication Instructions Recorded Naproxen [Naprosyn] 250 mg PO Q8H PRN #30 tab 09/30/24 hydrOXYzine pamoate [Vistaril] 25 mg PO TID PRN #30 cap 09/30/24 predniSONE 10 mg PO DAILY #30 tab 09/30/24 Allergies Allergy/AdvReac Type Severity Reaction Status Date / Time latex Allergy Rash/Hives Verified 10/07/24 15:30 Review of Systems ROS Statement: Those systems with pertinent positive or pertinent negative responses have been documented in the HPI. ROS Other: All systems not noted in ROS Statement are negative. Past Medical History Past Medical History: Cancer, Heart Failure, Fibromyalgia, Rheumatoid Arthritis (RA) Additional Past Medical History / Comment(s): endometriosis, stage 4 lung cancer History of Any Multi-Drug Resistant Organisms: None Reported Past Surgical History: Section, Hernia Repair, Tubal Ligation Additional Past Surgical History / Comment(s): laproscopy Past Anesthesia/Blood Transfusion Reactions: No Reported Reaction Past Psychological History: Anxiety, Depression Smoking Status: Current every day smoker Past Alcohol Use History: Abuse, Daily Past Drug Use History: None Reported - Past Family History Mother Family Medical History: Hypertension Father Family Medical History: COPD General Exam Limitations: no limitations General appearance: alert, anxious, in distress Head exam: Present: atraumatic, normocephalic, normal inspection Eye exam: Present: normal appearance, PERRL, EOMI. Absent: scleral icterus, conjunctival injection, periorbital swelling ENT exam: Present: normal exam, mucous membranes moist Neck exam: Present: normal inspection. Absent: tenderness, meningismus, lymphadenopathy Respiratory exam: Present: decreased breath sounds (Completely absent lung sounds noted in left upper and lower lung). Absent: respiratory distress, wheezes, rales, rhonchi, stridor, prolonged expiratory Cardiovascular Exam: Present: regular rate, normal rhythm, normal heart sounds. Absent: systolic murmur, diastolic murmur, rubs, gallop, clicks GI/Abdominal exam: Present: soft, normal bowel sounds. Absent: distended, tenderness, guarding, rebound, rigid Extremities exam: Present: normal inspection, full ROM, normal capillary refill. Absent: tenderness, pedal edema, joint swelling, calf tenderness Back exam: Present: normal inspection Neurological exam: Present: alert, oriented X3, CN II-XII intact Psychiatric exam: Present: normal affect, normal mood Skin exam: Present: warm, dry, intact, normal color. Absent: rash Course Vital Signs 10/07/24 10/07/24 15:28 17:53 Temperature 97.9 F Pulse Rate 104 H 93 Respiratory 26 H 22 Rate Blood Pressure 96/72 103/82 O2 Sat by Pulse 95 95 Oximetry Medical Decision Making - Medical Decision Making Was pt. sent in by a medical professional or institution (, PA, DEALER ANALYST, urgent care, hospital, or shelter...) When possible be specific @ -No Did you speak to anyone other than the patient for history (EMS, parent, family, police, friend...)? What history was obtained from this source @ -No Did you review nursing and triage notes (agree or disagree)? Why? @ -I reviewed and agree with nursing and triage notes Were old charts reviewed (outside hosp., previous admission, EMS record, old EKG, old radiological studies, urgent care reports/EKG's, shelter records)? Report findings @ -Charts from 09/27/2024 and 09/28/2024 reviewed from previous thoracentesis. Differential Diagnosis (chest pain, altered mental status, abdominal pain women, abdominal pain men, vaginal bleeding, weakness, fever, dyspnea, syncope, headache, dizziness, GI bleed, back pain, seizure, CVA, palpatations, mental health, musculoskeletal)? @ -Differential Dyspnea: Coronary syndrome, arrhythmia, tamponade, asthma, COPD, pulmonary embolism, pneumonia, pneumothorax, pulmonary effusion, anaphylaxis, diabetic ketoacidosis, flailed chest, pulmonary contusion, diaphragmatic rupture, anemia, neuromuscular, this is not meant to be an all-inclusive list. EKG interpreted by me (3pts min.). @ -As above X-rays interpreted by me (1pt min.). @ -CXR shows moderate to large left pleural effusion with innumerable pulmonary nodule consolidation in the suprahilar region. CT interpreted by me (1pt min.). @ -None done U/S interpreted by me (1pt. min.). @ -None done What testing was considered but not performed or refused? (CT, X-rays, U/S, labs)? Why? @ -None What meds were considered but not given or refused? Why? @ -None Did you discuss the management of the patient with other professionals (professionals i.e. DrMiriam, PA, DEALER ANALYST, lab, RT, psych nurse, health and social care teacher, criminal defense lawyer, teacher, program officer, comp field case manager)? Give summary @ -Notified Dr. Desai of patient's condition advised to consult cardiothoracic surgery. Dr. Celaya notified and accepted patient for admission Was smoking cessation discussed for >3mins.? @ -No Was critical care preformed (if so, how long)? @ -No Were there social determinants of health that impacted care today? How? (Homelessness, low income, unemployed, alcoholism, drug addiction, transportation, low edu. Level, literacy, decrease access to med. care, fci, rehab)? @ -No Was there de-escalation of care discussed even if they declined (Discuss DNR or withdrawal of care, Hospice)? DNR status @ -No What co-morbidities impacted this encounter? (DM, HTN, Smoking, COPD, CAD, Cancer, CVA, ARF, Chemo, Hep., AIDS, mental health diagnosis, sleep apnea, morbid obesity)? @ -Lung CA, heart failure Was patient admitted / discharged? Hospital course, mention meds given and route, prescriptions, significant lab abnormalities, going to OR and other pertinent info. @ -Lab work shows leukocytosis (16.9 with left shift. Other than lab work including troponin, BNP and lactic acid within normal limits. CXR shows moderate to large left pleural effusion with innumerable pulmonary nodule consolidation in the suprahilar region. Patient started on cefepime and vancomycin for possible exudative effusion. Patient also provided Ativan for anxiety. Notified Dr. Desai of patient's condition advised to consult cardiothoracic surgery. Dr. Celaya notified and accepted patient for admission Undiagnosed new problem with uncertain prognosis? @ -No Drug Therapy requiring intensive monitoring for toxicity (Heparin, Nitro, Insulin, Cardizem)? @ -No Were any procedures done? @ -No Diagnosis/symptom? @ -Recurrent pleural effusion Acute, or Chronic, or Acute on Chronic? @ -Acute Uncomplicated (without systemic symptoms) or Complicated (systemic symptoms)? @ -Complicated Side effects of treatment? @ -No Exacerbation, Progression, or Severe Exacerbation? @ -Severe exacerbation Poses a threat to life or bodily function? How? (Chest pain, USA, CT, pneumonia, PE, COPD, DKA, ARF, appy, cholecystitis, CVA, Diverticulitis, Homicidal, Suicidal, threat to staff... and all critical care pts) @ -Pleural effusion, respiratory failure - Lab Data Result diagrams: 10/07/24 16:13 10/07/24 16:13 Lab Results 10/07/24 10/07/24 10/07/24 Range/Units 16:13 16:13 16:13 WBC 16.9 H (3.8-10.6) k/uL RBC 5.30 (3.80-5.40) m/uL Hgb 16.3 H (11.4-16.0) gm/dL Hct 48.2 H (34.0-46.0) % MCV 90.9 (80.0-100.0) fL MCH 30.8 (25.0-35.0) pg MCHC 33.9 (31.0-37.0) g/dL RDW 13.5 (11.5-15.5) % Plt Count 285 (150-450) k/uL MPV 7.7 Neutrophils % 76 % Lymphocytes % 17 % Monocytes % 5 % Eosinophils % 2 % Basophils % 0 % Neutrophils # 12.8 H (1.3-7.7) k/uL Lymphocytes # 2.9 (1.0-4.8) k/uL Monocytes # 0.8 (0-1.0) k/uL Eosinophils # 0.3 (0-0.7) k/uL Basophils # 0.1 (0-0.2) k/uL PT 10.2 (10.0-12.5) sec INR 0.9 (<1.2) APTT 21.3 L (22.0-30.0) sec Sodium 135 L (137-145) mmol/L Potassium 4.3 (3.5-5.1) mmol/L Chloride 100 (98-107) mmol/L Carbon Dioxide 24 (22-30) mmol/L Anion Gap 11 mmol/L BUN 15 (7-17) mg/dL Creatinine 0.67 (0.52-1.04) mg/dL Est GFR (CKD-EPI)AfAm >90 (>60 ml/min/1.73 sqM) Est GFR (CKD-EPI)NonAf >90 (>60 ml/min/1.73 sqM) Glucose 107 H (74-99) mg/dL Plasma Lactic Acid Mauricio (0.7-2.0) mmol/L Calcium 9.2 (8.4-10.2) mg/dL Total Bilirubin 0.5 (0.2-1.3) mg/dL AST 15 (14-36) U/L ALT 16 (4-34) U/L Alkaline Phosphatase 64 (38-126) U/L Troponin I (0.000-0.034) ng/mL NT-Pro-B Natriuret Pep 88 pg/mL Total Protein 6.8 (6.3-8.2) g/dL Albumin 3.8 (3.5-5.0) g/dL 10/07/24 10/07/24 Range/Units 16:13 16:13 WBC (3.8-10.6) k/uL RBC (3.80-5.40) m/uL Hgb (11.4-16.0) gm/dL Hct (34.0-46.0) % MCV (80.0-100.0) fL MCH (25.0-35.0) pg MCHC (31.0-37.0) g/dL RDW (11.5-15.5) % Plt Count (150-450) k/uL MPV Neutrophils % % Lymphocytes % % Monocytes % % Eosinophils % % Basophils % % Neutrophils # (1.3-7.7) k/uL Lymphocytes # (1.0-4.8) k/uL Monocytes # (0-1.0) k/uL Eosinophils # (0-0.7) k/uL Basophils # (0-0.2) k/uL PT (10.0-12.5) sec INR (<1.2) APTT (22.0-30.0) sec Sodium (137-145) mmol/L Potassium (3.5-5.1) mmol/L Chloride (98-107) mmol/L Carbon Dioxide (22-30) mmol/L Anion Gap mmol/L BUN (7-17) mg/dL Creatinine (0.52-1.04) mg/dL Est GFR (CKD-EPI)AfAm (>60 ml/min/1.73 sqM) Est GFR (CKD-EPI)NonAf (>60 ml/min/1.73 sqM) Glucose (74-99) mg/dL Plasma Lactic Acid Mauricio 1.8 (0.7-2.0) mmol/L Calcium (8.4-10.2) mg/dL Total Bilirubin (0.2-1.3) mg/dL AST (14-36) U/L ALT (4-34) U/L Alkaline Phosphatase (38-126) U/L Troponin I <0.012 (0.000-0.034) ng/mL NT-Pro-B Natriuret Pep pg/mL Total Protein (6.3-8.2) g/dL Albumin (3.5-5.0) g/dL Disposition Clinical Impression: Pleural effusion Disposition: ADMITTED IP TO THIS HOSP Condition: Fair Is patient prescribed a controlled substance at d/c from ED?: No Referrals: Ruddy Real MD [Primary Care Provider] - 1-2 days Time of Disposition: 19:00 Decision Date: 10/07/24 Decision Time: 19:00
--- NOTE | 2024-10-07 16:06 | XR ---
EXAMINATION TYPE: XR chest 2V DATE OF EXAM: 10/07/2024 4:01 PM COMPARISON: Chest radiographs from 10/06/2024, CTA chest 09/27/2024 TECHNIQUE: XR chest 2V Frontal and lateral views of the chest. CLINICAL INDICATION:Female, 49 years old with history of difficulty breathing; FINDINGS: Lungs/Pleura: No pneumothorax. Increasing moderate to large sized left pleural effusion. Redemonstrat ion of left upper lobe suprahilar pulmonary masslike consolidation. Redemonstration of innumerable pu lmonary nodules throughout both lungs. Pulmonary vascularity: Unremarkable. Heart/mediastinum: Cardiomediastinal silhouette is partially obscured due to overlying and adjacent o pacities. Similar bilateral hilar prominence related to known adenopathy. Musculoskeletal: No acute osseous pathology. IMPRESSION: 1. Increasing moderate to large size left pleural effusion. 2. Redemonstration of innumerable pulmonary nodules with persistent left suprahilar masslike consoli dation. Similar bilateral hilar adenopathy. Again highly concerning for lung malignancy with metastas is as seen on prior CTA. [facility], , 10/07/2024 4:04 PM
[2024-10-07 16:53] LABS: Basophils # (A) 0.1 k/uL (0-0.2); Basophils % (A) 0 %; Eosinophils # (A) 0.3 k/uL (0-0.7); Eosinophils % (A) 2 %; HCT 48.2 % (34.0-46.0); HGB 16.3 gm/dL (11.4-16.0); Lymphocytes # (A) 2.9 k/uL (1.0-4.8); Lymphocytes % (A) 17 %; MCH 30.8 pg (25.0-35.0); MCHC 33.9 g/dL (31.0-37.0); MCV 90.9 fL (80.0-100.0); Mean Platelet Volume 7.7; Monocytes # (A) 0.8 k/uL (0-1.0); Monocytes % (A) 5 %; Neutrophils # (A) 12.8 k/uL (1.3-7.7); Neutrophils % (A) 76 %; Platelet Count 285 k/uL (150-450); RDW 13.5 % (11.5-15.5); WBC 16.9 k/uL (3.8-10.6)
[2024-10-07 17:14] LABS: ALT 16 U/L (4-34); AST 15 U/L (14-36); African American GFR (CKD) >90 (>60 ml/min/1.73 sqM); Albumin 3.8 g/dL (3.5-5.0); Alkaline Phosphatase 64 U/L (38-126); Anion Gap 11 mmol/L; Blood Urea Nitrogen 15 mg/dL (7-17); Calcium 9.2 mg/dL (8.4-10.2); Carbon Dioxide 24 mmol/L (22-30); Chloride 100 mmol/L (98-107); Glucose 107 mg/dL (74-99); Non-African American GFR(CKD) >90 (>60 ml/min/1.73 sqM); Potassium 4.3 mmol/L (3.5-5.1); Sodium 135 mmol/L (137-145); Total Bilirubin 0.5 mg/dL (0.2-1.3); Total Protein 6.8 g/dL (6.3-8.2)
[2024-10-07 17:17] LABS: INR 0.9 (<1.2); Prothrombin Time 10.2 sec (10.0-12.5)
[2024-10-07 17:19] LABS: Partial Thromboplastin Time 21.3 sec (22.0-30.0)
[2024-10-07 17:21] LABS: NT-Pro-B-Type Natriuretic Pept 88 pg/mL
[2024-10-07] MEDS ORDERED: VANCOMYCIN IV PER PHARMACY 1 EACH MISC MISCELLANE PRN (17:37)
[2024-10-07] MEDS: LORazepam 2 MG/ML INJ IV STA (17:56)
[2024-10-07] MEDS: CEFEPIME 2 GM in SODIUM CHLORIDE 0.9% 100 ML IVPB STA (17:58)
[2024-10-07] MEDS ORDERED: NALOXONE 0.4 MG/ML 1 ML VIAL IV PRN (19:20)
[2024-10-07] MEDS ORDERED: SENNOSIDES-DOCUSATE SODIUM 1 EACH TAB PO PRN (19:21)
[2024-10-07] MEDS: VANCOMYCIN 1,250 MG in SODIUM CHLORIDE 0.9% 250 ML IVPB STA (19:40)
[2024-10-07] MEDS: cloNIDine HCL 0.1 MG TAB PO SCH (22:05)
[2024-10-07] MEDS: NICOTINE 21MG/24HR PATCH TRANSDERM SCH (22:06)
[2024-10-07] MEDS: IPRATROPIUM-ALBUTEROL 3 ML NEB INHALATION SCH (22:16)
[2024-10-07] MEDS: SYMBICORT 160-4.5 MCG INHALER INHALATION SCH (22:17)
[2024-10-08 00:10] LABS: Influenza A Not Detected (Not Detectd); Influenza B Not Detected (Not Detectd); RSV Not Detected (Not Detectd)
[2024-10-08] MEDS: HYDROcodone/APAP 5-325MG 1 EACH TAB PO PRN (04:10)
[2024-10-08] MEDS: PATIENT'S OWN (Linaclotide [Linzess] 290 MCG Capsule) PO SCH (08:36)
[2024-10-08] MEDS: VANCOMYCIN 1,250 MG in SODIUM CHLORIDE 0.9% 250 ML IVPB SCH (08:38)
[2024-10-08] MEDS: hydrOXYzine pamoate 25 MG CAP PO PRN (08:38)
[2024-10-08] MEDS: FUROSEMIDE 20 MG TAB PO SCH (08:38)
[2024-10-08] MEDS: PANTOPRAZOLE 40 MG TABLET PO SCH (08:39)
--- NOTE | 2024-10-08 08:47 | US ---
EXAMINATION TYPE: US chest DATE OF EXAM: 10/08/2024 COMPARISON: CXR CLINICAL INDICATION: Female, 49 years old with history of Markings for thoracentesis by pulmonary sta ff; Effusion TECHNIQUE: Grayscale imaging of the chest. Targeted ultrasound of the posterior lower bilateral rai thoraces FINDINGS: EXAM MEASUREMENTS: Right Pleural Effusion pocket size: 0 Left Pleural Effusion pocket size: 15.3 cm Left skin surface to fluid distance: 3.5 cm Right side NOT marked for possible thoracentesis outside the dept. Left side marked for possible thoracentesis outside the dept. Pulmonologists are able to review the images in the patient?s EMR. IMPRESSIONS: Large left pleural effusion. [facility], , 10/08/2024 8:45 AM
[2024-10-08] MEDS: buPROPion XL 150 MG TAB.ER.24H PO SCH (10:40)
--- NOTE | 2024-10-08 11:24 | P.CNPUL ---
History of Present Illness Consult date: 10/08/24 Requesting physician: Homero Celaya Reason for consult: dyspnea, pleural effusion, abnormal CXR/CT Chief complaint: Recurrent left pleural effusion, shortness of breath History of present illness: This is a pleasant 49-year-old female patient with a history of rheumatoid arthritis, fibromyalgia, anxiety/depression, chronic and ongoing tobacco dependence, alcohol abuse with previous treatment at [facility] who also has a recent diagnosis of stage IV lung cancer. She had undergone thoracentesis on the left side on September 27, 2024 with fluid positive for metastatic non-small cell carcinoma features compatible with pulmonary adenocarcinoma. Since that time she has met with oncology. Further workup is pending. She presented here to the emergency room again yesterday October 06, 2024 with shortness of breath cough and congestion. Chest x-ray revealed recurrent left-sided pleural ef fusion. Ultrasound of the chest reveals a 15.3 cm pocket. White count 0.9. Hemoglobin 16.3. Platelets 285. INR 0.9. Sodium 135. Potassium 4.3. Bicarb 24. BUN 15. Creatinine 0.67. Glucose 107. Viral screen negative. She is seen today in consultation on the regular medical floor. She is currently sitting up at the bedside. Awake and alert in no acute distress. Maintaining good O2 saturations in the 90s on 3 L/min per nasal cannula. She is afebrile. Hemodynamically stable. Review of Systems REVIEW OF SYSTEMS: CONSTITUTIONAL: Denies any recent significant weight loss or weight gain. EYES: Denies change in vision. EARS, NOSE, MOUTH, THROAT: Denies headaches, denies sore throat. CARDIOVASCULAR: Denies chest pain, palpitations or syncopal episodes. RESPIRATORY: Positive for shortness of breath, cough, congestion no hemoptysis. GASTROINTESTINAL: Denies change in appetite, denies abdominal pain GENITOURINARY: Denies hematuria, denies infections. MUSKULOSKELETAL: Denies pain, denies swelling. INTEGUMENTARY: Denies rash, denies eczema. NEUROLOGICAL: Denies recent memory loss, no recent seizure activity. PSYCHIATRIC: Denies anxiety, denies depression. HEMATOLOGIC/LYMPHATIC: Denies anemia, denies enlarged lymph nodes. Past Medical History Past Medical History: Cancer, Heart Failure, Fibromyalgia, Rheumatoid Arthritis (RA) Additional Past Medical History / Comment(s): endometriosis, stage 4 lung cancer History of Any Multi-Drug Resistant Organisms: None Reported Past Surgical History: Section, Hernia Repair, Tubal Ligation Additional Past Surgical History / Comment(s): laproscopy Past Anesthesia/Blood Transfusion Reactions: No Reported Reaction Past Psychological History: Anxiety, Depression Smoking Status: Current every day smoker, Vaper Past Alcohol Use History: Abuse, Daily Additional Past Alcohol Use History / Comment(s): CAN USUALLY GO THREE TO 5 DAYS WITH OUT ALCOHOL Past Drug Use History: None Reported - Past Family History Mother Family Medical History: Hypertension Father Family Medical History: COPD Medications and Allergies Home Medications Medication Instructions Recorded Confirmed Type Fluticasone Nasal [place] [Flonase 1 spray EA NOSTRIL DAILY 08/26/24 10/07/24 History Nasal [place]] Linaclotide [Linzess] 290 mcg PO DAILY 08/26/24 10/07/24 History Pantoprazole [Protonix] 40 mg PO DAILY 08/26/24 10/07/24 History Sennosides/Docusate Sodium [Senna 1 tab PO BID PRN 08/26/24 10/07/24 History Plus 8.6-50 mg Softgel] cloNIDine HCL 0.1 mg PO BID 08/26/24 10/07/24 History Budesonide/Formoterol Fumarate 1 puff INHALATION RT-BID 09/27/24 10/07/24 History [Symbicort 160-4.5 Mcg Inhaler] Furosemide [Lasix] 20 mg PO DAILY 09/27/24 10/07/24 History Nicotine 14Mg/24Hr Patch [Habitrol] 1 patch TRANSDERM DIRECTED 09/27/24 10/07/24 History Potassium Chloride ER [K-Dur 10] 10 meq PO DAILY 09/27/24 10/07/24 History guaiFENesin [Mucinex] 1,200 mg PO Q12H 09/27/24 10/07/24 History Naproxen [Naprosyn] 250 mg PO Q8H PRN #30 tab 09/30/24 10/07/24 Rx hydrOXYzine pamoate [Vistaril] 25 mg PO TID PRN #30 cap 09/30/24 10/07/24 Rx predniSONE 10 mg PO DAILY #30 tab 09/30/24 10/07/24 Rx Ipratropium-Albuterol Nebulize 3 ml INHALATION RT-QID 10/07/24 10/07/24 History [Duoneb 0.5 mg-3 mg/3 ml Soln] Nicotine 21Mg/24Hr Patch [Habitrol] 1 patch TRANSDERM DIRECTED 10/07/24 10/07/24 History buPROPion XL [Wellbutrin XL] 150 mg PO DAILY 10/07/24 10/07/24 History Allergies Allergy/AdvReac Type Severity Reaction Status Date / Time latex Allergy Rash/Hives Verified 10/07/24 15:30 Physical Exam Vitals: Vital Signs Temp Pulse Pulse Resp BP BP Pulse Ox 10/08/24 08:06 84 10/08/24 07:51 80 10/08/24 07:15 97.8 F 78 18 116/83 93 L 10/08/24 06:10 20 10/08/24 05:30 97.5 F L 78 16 101/73 93 L 10/08/24 05:10 97.4 F L 83 24 112/81 94 L 10/08/24 04:04 97.6 F 92 24 116/75 93 L 10/08/24 02:19 83 20 96/70 93 L 10/07/24 23:00 98 22 114/79 91 L 10/07/24 22:30 99 10/07/24 22:18 96 10/07/24 22:00 92 20 110/75 93 L 10/07/24 21:00 100 22 106/65 93 L 10/07/24 19:42 92 20 110/80 95 10/07/24 17:53 93 22 103/82 95 10/07/24 15:28 97.9 F 104 H 26 H 96/72 95 Intake and Output 10/07/24 10/08/24 10/08/24 22:59 06:59 14:59 Other: # Voids 1 Weight 67.132 kg 67.132 kg GENERAL EXAM: Alert, active, 49-year-old female, on 3 L nasal cannula, fairly comfortable in no apparent distress. HEAD: Normocephalic. EYES: Normal reaction of pupils, equal size. NOSE: Clear with pink turbinates. THROAT: No erythema or exudates. NECK: No masses, no JVD. CHEST: No chest wall deformity. LUNGS: Equal air entry with diminished breath sounds on the left. CVS: S1 and S2 normal with no audible murmur, regular rhythm. ABDOMEN: No hepatosplenomegaly, normal bowel sounds, no guarding or rigidity. SPINE: No scoliosis or deformity SKIN: No rashes CENTRAL NERVOUS SYSTEM: No focal deficits, tone is normal in all 4 extremities. EXTREMITIES: There is no peripheral edema. No clubbing, no cyanosis. Peripheral pulses are intact. Results - Laboratory Findings CBC and BMP: 10/07/24 16:13 10/07/24 16:13 PT/INR, D-dimer PT 10.2 sec (10.0-12.5) 10/07/24 16:13 INR 0.9 (<1.2) 10/07/24 16:13 Abnormal lab findings: Abnormal Labs 10/07/24 10/07/24 10/07/24 16:13 16:13 16:13 WBC 16.9 H Hgb 16.3 H Hct 48.2 H Neutrophils # 12.8 H APTT 21.3 L Sodium 135 L Glucose 107 H - Diagnostic Findings Chest x-ray: image reviewed Assessment and Plan Assessment: Acute on chronic hypoxemic respiratory failure secondary to recurrent left-sided pleural effusion Recurrent left-sided pleural effusion with recent thoracentesis on 09/27/2024 positive for pulmonary adenocarcinoma Chronic and ongoing tobacco dependence History of vaping Chronic obstructive pulmonary disease Chronic alcohol abuse, recent stay at [facility] History of anxiety History of fibromyalgia Rheumatoid arthritis History of congestive heart failure Plan: The patient was seen and evaluated Chest x-ray, chest ultrasound, labs and medications reviewed Will request CT services for Pleurx catheter placement Continue DuoNeb inhalations, Symbicort Educated regarding smoking cessation NicoDerm patch in place Check a procalcitonin If negative discontinue antibiotics Plan is for outpatient pulmonary function testing, PET scan next week We will continue to follow and make further recommendations based on her clinical I have personally seen and examined the patient, performed the documentation and the assessment and plan as written. Number of minutes spent on the visit: 20 Dictation was produced using [employer] dictation software. Please excuse any grammatical, word or spelling errors.
--- NOTE | 2024-10-08 11:39 | P.GSCN ---
History of Present Illness Consult date: 10/08/24 Reason for Consult: Recurrent left pleural effusion, request for Pleurx catheter placement Requesting physician: Kristin Burt History of present illness: This is a 49-year-old female patient who follows on an outpatient basis with Dr. Ruddy orlando for her primary care. She has a past medical history significant for rheumatoid arthritis, history of EtOH which she reports she has undergone previous rehabilitation at [facility] and has not had EtOH use for around 7 weeks, chronic ongoing tobacco dependence smokes about 1 and half packs of cigarettes a day, as well as vapes, irritable bowel syndrome, endometriosis, fibromyalgia, history of congestive heart failure, and a recent diagnosis of lung cancer. She was recently in the hospital due to some worsening shortness of breath. A CT scan of the chest was completed at that time which revealed multiple bilateral pulmonary nodules, mediastinal lymphadenopathy, and a left upper lobe masslike consolidation concerning for malignancy and diffuse metastatic disease. On August 30, 2024 the patient underwent a bronchoscopy with bronchoalveolar lavage without any biopsies. For further evaluation she underwent an MRI of the brain which showed no significant metastatic lesions. She also underwent a CAT scan of the abdomen and pelvis which showed no acute ab normalities in the abdomen or pelvic area. It did show some nonspecific prominence in the left retroperitoneal and para-aortic lymph node measuring 10 mm in in size. On September 27, 2024 due to a left pleural effusion the patient underwent a left thoracentesis with 2.3 L of turbid colored fluid drained by Dr. Willson. The cytology from the pleural fluid did show a positive result with metastatic non-small cell carcinoma having features compatible with pulmonary adenocarcinoma. Subsequently the patient was discharged home on October 05, 2024. The patient presented back to the emergency department yesterday October 07, 2024 with complaints of progressive shortness of breath, back pain and episodes of diaphoresis. She denies any recent fever, chills, nausea, vomiting, chest pain, chest pressure, hematemesis, hemoptysis, cough, constipation, diarrhea, presyncope or syncope. She does report that she is home oxygen dependent and usually uses 2 L nasal cannula but at home bumped her oxygen up to 4 L nasal cannula. A chest x-ray was completed yesterday October 07, 2024 with the report showing an increasing moderate to large size left pleural effusion, redemonstration of innumerable pulmonary nodules with persistent left suprahilar mass like consolidation, similar bilateral hilar adenopathy, highly concerning for lung malignancy with metastasis as seen on prior CTA. The patient also underwent an ultrasound of the chest which showed a left pleural effusion pocket size of 15.3 cm. Subsequently due to the findings on the chest x-ray and ultrasound of a recurrent left pleural effusion a consult was placed to cardiothoracic surgery for further evaluation and treatment recommendations including placement of left Pleurx catheter. Review of Systems A review of systems was completed and was negative except as mentioned in the HPI. Past Medical History Past Medical History: Cancer, Heart Failure, Fibromyalgia, GERD/Reflux, Rheumatoid Arthritis (RA) Additional Past Medical History / Comment(s): endometriosis, stage 4 lung cancer History of Any Multi-Drug Resistant Organisms: None Reported Past Surgical History: Section, Hernia Repair, Tubal Ligation Additional Past Surgical History / Comment(s): laproscopy Past Anesthesia/Blood Transfusion Reactions: No Reported Reaction Past Psychological History: Anxiety, Depression Smoking Status: Current every day smoker, Vaper Past Alcohol Use History: Abuse, Daily Additional Past Alcohol Use History / Comment(s): CAN USUALLY GO THREE TO 5 DAYS WITH OUT ALCOHOL Past Drug Use History: None Reported - Past Family History Mother Family Medical History: Hypertension Father Family Medical History: COPD Medications and Allergies Home Medications Medication Instructions Recorded Confirmed Type Fluticasone Nasal [place] [Flonase 1 spray EA NOSTRIL DAILY 08/26/24 11/10/24 History Nasal [place]] Linaclotide [Linzess] 290 mcg PO DAILY 08/26/24 11/10/24 History Pantoprazole [Protonix] 40 mg PO DAILY 08/26/24 11/10/24 History Sennosides/Docusate Sodium [Senna 1 tab PO BID PRN 08/26/24 11/10/24 History Plus 8.6-50 mg Softgel] cloNIDine HCL 0.1 mg PO BID 08/26/24 11/10/24 History Budesonide/Formoterol Fumarate 1 puff INHALATION RT-BID 09/27/24 11/10/24 History [Symbicort 160-4.5 Mcg Inhaler] Naproxen [Naprosyn] 250 mg PO Q8H PRN #30 tab 09/30/24 11/10/24 Rx hydrOXYzine pamoate [Vistaril] 25 mg PO TID PRN #30 cap 09/30/24 11/10/24 Rx Ipratropium-Albuterol Nebulize 3 ml INHALATION RT-QID 10/07/24 11/10/24 History [Duoneb 0.5 mg-3 mg/3 ml Soln] buPROPion XL [Wellbutrin XL] 150 mg PO DAILY 10/07/24 11/10/24 History Acetaminophen Tab [Tylenol] 500 mg PO Q6HR PRN tab 10/11/24 11/10/24 Rx guaiFENesin [Mucinex] 1,200 mg PO Q12H PRN #50 tab 10/11/24 11/10/24 Rx Nicotine 21Mg/24Hr Patch [Habitrol] 1 patch TRANSDERM DAILY 10/16/24 11/10/24 History Folic Acid 1 mg PO DAILY #30 tab 10/26/24 11/10/24 Rx HYDROcodone/APAP 10-325MG [[place] 1 each PO Q8H PRN #30 tab 10/26/24 11/10/24 Rx 10-325] Allergies Allergy/AdvReac Type Severity Reaction Status Date / Time latex Allergy Rash/Hives Verified 11/10/24 08:59 Surgical - Exam Vital Signs Temp Pulse Resp BP Pulse Ox 97.9 F 104 H 26 H 96/72 95 10/07/24 15:28 10/07/24 15:28 10/07/24 15:28 10/07/24 15:28 10/07/24 15:28 - General well developed, well nourished, no distress, no pain, chronically ill - Eyes PERRL, normal ocular movement, no pale, no icteric - ENT normal pinna, normal nares, normal mucosa, no hearing loss, no congestion, poor halfway - Neck Neck is supple, no lymphadenopathy. no masses, no bruits, trachea midline, no venous distension - Respiratory Lung sounds diminished throughout, left greater than right. Respirations are symmetrical and nonlabored. Oxygen saturations 94% on 3 L nasal cannula. Few scattered wheezes. No rhonchi or crackles. - Cardiovascular Regular rhythm and rate. S1 and S2 present, negative for S3, gallop or murmur. - Abdomen Abdomen is soft, nontender and nondistended. Active bowel sounds present all 4 abdominal quadrants. No guarding or rigidity. No organomegaly appreciated. - Genitourinary Deferred - Rectum Deferred - Integumentary Skin is warm and dry. No clubbing or cyanosis is present. no rash, no growths, no abnormal pigmentation - Neurologic No focal deficits. normal coordination, normal sensation - Musculoskeletal Moves all 4 extremities with equal strength bilateral. - Psychiatric oriented to time, oriented to person, oriented to place, speech is normal, memory intact Results - Labs 10/07/24 16:13 10/07/24 16:13 Abnormal Lab Results - Last 24 Hours (Table) 10/07/24 10/07/24 10/07/24 Range/Units 16:13 16:13 16:13 WBC 16.9 H (3.8-10.6) k/uL Hgb 16.3 H (11.4-16.0) gm/dL Hct 48.2 H (34.0-46.0) % Neutrophils # 12.8 H (1.3-7.7) k/uL APTT 21.3 L (22.0-30.0) sec Sodium 135 L (137-145) mmol/L Glucose 107 H (74-99) mg/dL Diabetes panel 10/07/24 Range/Units 16:13 Sodium 135 L (137-145) mmol/L Potassium 4.3 (3.5-5.1) mmol/L Chloride 100 (98-107) mmol/L Carbon Dioxide 24 (22-30) mmol/L BUN 15 (7-17) mg/dL Creatinine 0.67 (0.52-1.04) mg/dL Glucose 107 H (74-99) mg/dL Calcium 9.2 (8.4-10.2) mg/dL AST 15 (14-36) U/L ALT 16 (4-34) U/L Alkaline Phosphatase 64 (38-126) U/L Total Protein 6.8 (6.3-8.2) g/dL Albumin 3.8 (3.5-5.0) g/dL Calcium panel 10/07/24 Range/Units 16:13 Calcium 9.2 (8.4-10.2) mg/dL Albumin 3.8 (3.5-5.0) g/dL Pituitary panel 10/07/24 Range/Units 16:13 Sodium 135 L (137-145) mmol/L Potassium 4.3 (3.5-5.1) mmol/L Chloride 100 (98-107) mmol/L Carbon Dioxide 24 (22-30) mmol/L BUN 15 (7-17) mg/dL Creatinine 0.67 (0.52-1.04) mg/dL Glucose 107 H (74-99) mg/dL Calcium 9.2 (8.4-10.2) mg/dL Adrenal panel 10/07/24 Range/Units 16:13 Sodium 135 L (137-145) mmol/L Potassium 4.3 (3.5-5.1) mmol/L Chloride 100 (98-107) mmol/L Carbon Dioxide 24 (22-30) mmol/L BUN 15 (7-17) mg/dL Creatinine 0.67 (0.52-1.04) mg/dL Glucose 107 H (74-99) mg/dL Calcium 9.2 (8.4-10.2) mg/dL Total Bilirubin 0.5 (0.2-1.3) mg/dL AST 15 (14-36) U/L ALT 16 (4-34) U/L Alkaline Phosphatase 64 (38-126) U/L Total Protein 6.8 (6.3-8.2) g/dL Albumin 3.8 (3.5-5.0) g/dL - Imaging Chest x-ray: report reviewed, image reviewed Assessment and Plan Assessment: Recurrent left-sided pleural effusion, possibly malignant, history of positive pleural fluid cytology Multiple bilateral pulmonary nodules, recent diagnosis of metastatic lung cancer Acute hypoxic respiratory failure on home oxygen as an outpatient Chronic ongoing tobacco dependence and vaping History of EtOH, has abstained from alcohol for 7 weeks Rheumatoid arthritis Endometriosis Fibromyalgia History of congestive heart failure Anxiety Depression Plan: The patient was seen and examined at her bedside on the fifth floor medical oncology unit. Her chart and diagnostics were reviewed. Her case was discussed in detail with Dr. Kwan Prescott from cardiothoracic surgery. Discussed the findings on the chest x-ray and ultrasound of the chest with the patient in regards to the recurrent left pleural effusion. The patient is unsure what treatment options she would like to proceed with in regards to her cancer. The patient is requesting placement of left Pleurx catheter. Risks and benefits of Pleurx catheter placement discussed with the patient. Will try to get the patient on the schedule for left Pleurx catheter placement on Thursday, October 10, 2024 to be placed by Dr. Kwan Prescott. The patient will be n.p.o. after midnight on Thursday, October 10, 2024. Medical management of other comorbidities per primary care service. More recommendations will follow based on patient's clinical course. Thank you Dr. Qiu for this consult and we look forward to working with you in the care of the patient. I have personally seen and examined the patient, performed the documentation and the assessment and plan as written. Number of minutes spent on the visit: 30. MARGARITA Irwin I have seen and examined the patient and agree with the assessment and plan as dictated by the nurse practitioner. Number of minutes spent on the visit:40. Jonathan Mcnally MD
[2024-10-08 13:35] VITALS: BMI 25.4
--- NOTE | 2024-10-08 16:30 | P.HPIM ---
History of Present Illness H&P Date: 10/08/24 Chief Complaint: Short of breath 49-year-old patient who follows with Dr. Ruddy Real. Chronic stable medical conditions include fibromyalgia, rheumatoid arthritis, endometriosis, anxiety depression, hypertension, GERD. Around August 2024 at [facility] for alcohol rehab. Last drink August 2024 does vaping and also's cigarette smoking. August patient underwent bronchoscopy by Dr. SANTOS from pulmonary. Results are nonspecific. Malignancy could not be ruled out. Was admitted to the hospital here beginning of September.: When short of breath cough sputum. Thoracentesis showed metastatic non-small cell carcinoma having features compatible with pulmonary adenocarcinoma. Was discharged on 4 L of oxygen. So Dr. Santos outpatient was dropped to [address] Serrato from oncology was given different options including chemotherapy. Patient now presents with increasing shortness of breath. Cough sputum predominantly clear with significant amount. Does break out in a sweat. No fever no chills. Appetite is fair. No change in bowel pattern. Presented through the ER. Review of systems: GEN.: Tired, EYES: None HEENT: None NECK: None RESPIRATORY: As above CARDIOVASCULAR: None GASTROINTESTINAL: None GENITOURINARY: None MUSCULOSKELETAL: None LYMPHATICS: None HEMATOLOGICAL: None PSYCHIATRY: anxious NEUROLOGICAL: None Social history: . Lives with her mother. Significant alcohol r intake in August 2024 admitted [facility]. Does vaping also smoke up to half a pack a day for many years Physical examination: VITAL SIGNS: 97.8, 80, 22, 100 1693, 93% on 3 L General: Sitting up in bed. Short of breath. Anxious a bit restless EYES: Pupils equal. Conjunctiva alyce l. HEENT: External appearance of nose and ears normal, oral cavity grossly normal. NECK: JVD not raised; masses not palpable. HEART: First and second heart sounds are normal; no edema. LUNGS: Respiratory rate increased, diminished breath sound, expiratory wheezing ABDOMEN: Soft, nontender, liver spleen not palpable, no masses palpable. PSYCH: Alert and oriented x3; mood and affect anxious NEUROLOGICAL: Cranial nerves grossly intact; no facial asymmetry, power and sensation grossly intact. LYMPHATICS: No lymph nodes palpable in the axilla and neck INVESTIGATIONS, reviewed in the clinical context: October 07: White count 16.9 hemoglobin 16.3 platelets 25 sodium 135 potassium 4.3 creatinine 0.67 proBNP 88 troponin I less than 0.012 Chest x-ray film personally reviewed by me-large left pleural effusion. Scattered bilateral infiltrates September 2024: Pleural fluid cytology: Non-small cell adenocarcinoma CT angio chest [August 26, 2024]: More than 50 nodules throughout the lungs. Left upper lung masslike consolidation. 58 x 32 mm. Some nodules of central cavitation. Lymphadenopathy. Negative for PE Assessment plan: -Acute hypoxic respiratory failure combination of worsening COPD and increasing left pleural effusion secondary to carcinoma Current oxygen 3 L -Acute COPD exacerbation in a smoker. DuoNeb 4 times daily Symbicort. -Recurrent large pleural effusion secondary to adenocarcinoma. Left thoracentesis done September 28: Dr. Willson. Will require repeat thoracentesis/Pleurx catheter due to rapid accumulation Cardiothoracic team planning for Pleurx catheter on Thursday -Chronic hypoxic respiratory failure secondary to COPD Home oxygen 3 L -Left upper lobe consolidation and multiple lung nodules. Adenocarcinoma.. Being followed by Dr. Serrato from oncology. Different options were discussed outpatient recently. -Doubt pneumonia. No antibiotics. Pulmonary following -Essential hypertension Catapres. -Chronic nicotine dependence plus vaping Nicotine patch 14 -Anxiety depression, anxiety Trazodone. Wellbutrin XL Atarax 25 mg every 8 as needed for anxiety -Full code Discussed with patient Given the complexity and severity of patient's condition expect the patient to be in the hospital at least for 2 overnights Past Medical History Past Medical History: Cancer, Heart Failure, Fibromyalgia, Rheumatoid Arthritis (RA) Additional Past Medical History / Comment(s): endometriosis, stage 4 lung cancer History of Any Multi-Drug Resistant Organisms: None Reported Past Surgical History: Section, Hernia Repair, Tubal Ligation Additional Past Surgical History / Comment(s): laproscopy Past Anesthesia/Blood Transfusion Reactions: No Reported Reaction Past Psychological History: Anxiety, Depression Smoking Status: Current every day smoker, Vaper Past Alcohol Use History: Abuse, Daily Additional Past Alcohol Use History / Comment(s): CAN USUALLY GO THREE TO 5 DAYS WITH OUT ALCOHOL Past Drug Use History: None Reported - Past Family History Mother Family Medical History: Hypertension Father Family Medical History: COPD Medications and Allergies Home Medications Medication Instructions Recorded Confirmed Type Fluticasone Nasal [place] [Flonase 1 spray EA NOSTRIL DAILY 08/26/24 10/07/24 History Nasal [place]] Linaclotide [Linzess] 290 mcg PO DAILY 08/26/24 10/07/24 History Pantoprazole [Protonix] 40 mg PO DAILY 08/26/24 10/07/24 History Sennosides/Docusate Sodium [Senna 1 tab PO BID PRN 08/26/24 10/07/24 History Plus 8.6-50 mg Softgel] cloNIDine HCL 0.1 mg PO BID 08/26/24 10/07/24 History Budesonide/Formoterol Fumarate 1 puff INHALATION RT-BID 09/27/24 10/07/24 History [Symbicort 160-4.5 Mcg Inhaler] Furosemide [Lasix] 20 mg PO DAILY 09/27/24 10/07/24 History Nicotine 14Mg/24Hr Patch [Habitrol] 1 patch TRANSDERM DIRECTED 09/27/24 10/07/24 History Potassium Chloride ER [K-Dur 10] 10 meq PO DAILY 09/27/24 10/07/24 History guaiFENesin [Mucinex] 1,200 mg PO Q12H 09/27/24 10/07/24 History Naproxen [Naprosyn] 250 mg PO Q8H PRN #30 tab 09/30/24 10/07/24 Rx hydrOXYzine pamoate [Vistaril] 25 mg PO TID PRN #30 cap 09/30/24 10/07/24 Rx predniSONE 10 mg PO DAILY #30 tab 09/30/24 10/07/24 Rx Ipratropium-Albuterol Nebulize 3 ml INHALATION RT-QID 10/07/24 10/07/24 History [Duoneb 0.5 mg-3 mg/3 ml Soln] Nicotine 21Mg/24Hr Patch [Habitrol] 1 patch TRANSDERM DIRECTED 10/07/24 10/07/24 History buPROPion XL [Wellbutrin XL] 150 mg PO DAILY 10/07/24 10/07/24 History Allergies Allergy/AdvReac Type Severity Reaction Status Date / Time latex Allergy Rash/Hives Verified 10/07/24 15:30 Physical Exam Vitals: Vital Signs Temp Pulse Pulse Resp BP BP Pulse Ox 10/08/24 08:06 84 10/08/24 07:51 80 10/08/24 07:15 97.8 F 78 18 116/83 93 L 10/08/24 06:10 20 10/08/24 05:30 97.5 F L 78 16 101/73 93 L 10/08/24 05:10 97.4 F L 83 24 112/81 94 L 10/08/24 04:04 97.6 F 92 24 116/75 93 L 10/08/24 02:19 83 20 96/70 93 L 10/07/24 23:00 98 22 114/79 91 L 10/07/24 22:30 99 10/07/24 22:18 96 10/07/24 22:00 92 20 110/75 93 L 10/07/24 21:00 100 22 106/65 93 L 10/07/24 19:42 92 20 110/80 95 10/07/24 17:53 93 22 103/82 95 10/07/24 15:28 97.9 F 104 H 26 H 96/72 95 Intake and Output 10/07/24 10/08/24 10/08/24 22:59 06:59 14:59 Other: # Voids 1 Weight 67.132 kg 67.132 kg Results CBC & Chem 7: 10/07/24 16:13 10/07/24 16:13 Labs: Abnormal Lab Results - Last 24 Hours (Table) 10/07/24 10/07/24 10/07/24 Range/Units 16:13 16:13 16:13 WBC 16.9 H (3.8-10.6) k/uL Hgb 16.3 H (11.4-16.0) gm/dL Hct 48.2 H (34.0-46.0) % Neutrophils # 12.8 H (1.3-7.7) k/uL APTT 21.3 L (22.0-30.0) sec Sodium 135 L (137-145) mmol/L Glucose 107 H (74-99) mg/dL Thrombosis Risk Factor Assmnt - Choose All That Apply Any of the Below Risk Factors Present?: Yes Each Factor Represents 1 point: Abnormal pulmonary function (COPD) Other Risk Factors: No Other congenital or acquired thrombophilia - If yes, enter type in comment: No Thrombosis Risk Factor Assessment Total Risk Factor Score: 1 Thrombosis Risk Factor Assessment Level: Low Risk
[2024-10-08] MEDS: ACETAMINOPHEN TAB 500 MG TAB PO PRN (20:54)
[2024-10-09] MEDS ORDERED: VANCOMYCIN TROUGH DUE 1 EACH MISC MISCELLANE ONE (07:00)
--- NOTE | 2024-10-09 11:20 | P.PN ---
Subjective Progress Note Date: 10/09/24 Principal diagnosis: Recurrent left pleural effusion. Past medical history significant for rheumatoid arthritis, history of EtOH which she reports she has undergone previous rehabilitation at [facility] and has not had EtOH use for around 7 weeks, chronic ongoing tobacco dependence smokes about 1 and half packs of cigarettes a day, as well as vapes, irritable bowel syndrome, endometriosis, fibromyalgia, history of congestive heart failure, and a recent diagnosis of lung cancer. The patient was seen and examined in follow-up today October 09, 2024 at her bedside on the fifth floor medical oncology unit. She is currently sitting up to the bedside edge, is awake, alert, oriented x 3 and is in no acute apparent distress. She denies any complaints of pain at this time, although complains of some episodes of shortness of breath with activity. Oxygen saturations are 94% on 3 L nasal cannula. She is tentatively scheduled for a placement of left Pleurx catheter tomorrow October 10, 2024 to be placed by Dr. Kwan Prescott. Risks and benefits of the catheter placement, the usual course of Pleurx catheter placement has been discussed and reviewed with the patient. Preoperative teaching has been reinforced with the patient. She will be n.p.o. after midnight. Objective - Vital Signs Vital signs: Vital Signs Temp 97.4 F L 10/09/24 07:19 Pulse 92 10/09/24 10:52 Resp 28 H 10/09/24 07:19 BP 122/90 10/09/24 07:19 Pulse Ox 94 L 10/09/24 07:19 FiO2 Intake & Output 10/08/24 10/09/24 10/09/24 18:59 06:59 18:59 Intake Total 1542 Balance 1542 Weight 67.132 kg Intake: Oral 1542 Other: # Voids 3 3 - Exam CONSTITUTIONAL: Appears comfortable, cooperative, no acute distress RESPIRATORY: Lungs sounds diminished bilaterally, left greater than right. Respirations even, nonlabored. Currently on 3 L nasal cannula oxygen with oxygen saturation 94%. Strong cough. CARDIOVASCULAR: S1, S2 present. Regular rate and rhythm, sinus rhythm on telemetry. Palpable peripheral pulses bilaterally. No edema present. No calf pain or tenderness noted. GASTROINTESTINAL: Abdomen soft, nontender, nondistended. Active bowel sounds present 4 quadrants. Tolerating diet. GENITOURINARY: Continues to void. INTEGUMENTARY: Skin is warm and dry with evidence of good perfusion. NEUROLOGIC: Cranial nerves II through XII intact. No focal deficits. MUSKULOSKELETAL: Able to move all extremities, strength equal bilaterally, gait normal, generalized weakness. PSYCHIATRIC: Alert and oriented to person place and time, appropriate affect, intact judgment and insight - Allied health notes Allied health notes reviewed: nursing - Labs CBC & Chem 7: 10/07/24 16:13 10/07/24 16:13 Labs: Microbiology - Last 24 Hours (Table) 10/07/24 18:00 Nasal Screen MRSA/MSSA - Final Nasal Swab 10/07/24 17:50 Blood Culture - Preliminary Blood Assessment and Plan Assessment: Recurrent left-sided pleural effusion, possibly malignant, history of positive pleural fluid cytology Multiple bilateral pulmonary nodules, recent diagnosis of metastatic lung cancer Acute hypoxic respiratory failure on home oxygen as an outpatient Chronic ongoing tobacco dependence and vaping History of EtOH, has abstained from alcohol for 7 weeks Rheumatoid arthritis Endometriosis Fibromyalgia History of congestive heart failure Anxiety Depression Plan: The patient will be placed n.p.o. after midnight. She is tentatively scheduled for left Pleurx catheter placement tomorrow October 10, 2024 to be placed by Dr. Kwan Prescott. Preoperative teaching has been reinforced with the patient. Encourage use of incentive spirometry 10 times every hour while awake. Medical management of other comorbidities per internal medicine and pulmonary/critical care medicine service. More recommendations to follow based on patient's clinical course. Time with Patient: Less than 30
--- NOTE | 2024-10-09 11:48 | P.PN ---
Subjective Progress Note Date: 10/09/24 This is a pleasant 49-year-old female patient with a history of rheumatoid arthritis, fibromyalgia, anxiety/depression, chronic and ongoing tobacco dependence, alcohol abuse with previous treatment at [place] who also has a recent diagnosis of stage IV lung cancer. She had undergone thoracentesis on the left side on September 27, 2024 with fluid positive for metastatic non-small cell carcinoma features compatible with pulmonary adenocarcinoma. Since that time she has met with oncology. Further workup is pending. She presented here to the emergency room again yesterday October 06, 2024 with shortness of breath cough and congestion. Chest x-ray revealed recurrent left-sided pleural effusion. Ultrasound of the chest reveals a 15.3 cm pocket. White count 0.9. Hemoglobin 16.3. Platelets 285. INR 0.9. Sodium 135. Potassium 4.3. Bicarb 24. BUN 15. Creatinine 0.67. Glucose 107. Viral screen negative. She is seen today in consultation on the regular medical floor. She is currently sitting up at the bedside. Awake and alert in no acute distress. Maintaining good O2 saturations in the 90s on 3 L/min per nasal cannula. She is afebrile. Hemodynamically stable. The patient is seen today October 09, 2024 in follow-up on the regular medical floor. She is currently sitting up at the bedside. Awake and alert in no acute distress. Denies any worsening shortness of breath, cough or congestion. She is maintaining good O2 saturations in the 90s on 4 L/min per nasal cannula. She does have dyspnea on exertion. Procalcitonin was negative at 0.06. Rocephin discontinued. She remains on DuoNeb inhalations, Symbicort. NicoDerm patch in place. Remains on oral diuretics. Objective - Vital Signs Vital signs: Vital Signs Temp 97.4 F L 10/09/24 07:19 Pulse 92 10/09/24 10:52 Resp 28 H 10/09/24 07:19 BP 122/90 10/09/24 07:19 Pulse Ox 94 L 10/09/24 07:19 FiO2 Intake & Output 10/08/24 10/09/24 10/09/24 18:59 06:59 18:59 Intake Total 1542 Balance 1542 Weight 67.132 kg Intake: Oral 1542 Other: # Voids 3 3 - Exam GENERAL EXAM: Alert, pleasant 49-year-old female, on 4 L nasal cannula, comfortable in no apparent distress. HEAD: Normocephalic. EYES: Normal reaction of pupils, equal size. NOSE: Clear with pink turbinates. THROAT: No erythema or exudates. NECK: No masses, no JVD. CHEST: No chest wall deformity. LUNGS: Equal air entry with diminished breath sounds on the left. CVS: S1 and S2 normal with no audible murmur, regular rhythm. ABDOMEN: No hepatosplenomegaly, normal bowel sounds, no guarding or rigidity. SPINE: No scoliosis or deformity SKIN: No rashes CENTRAL NERVOUS SYSTEM: No focal deficits, tone is normal in all 4 extremities. EXTREMITIES: There is no peripheral edema. No clubbing, no cyanosis. Peripheral pulses are intact. - Labs CBC & Chem 7: 10/07/24 16:13 10/07/24 16:13 Labs: Microbiology - Last 24 Hours (Table) 10/07/24 18:00 Nasal Screen MRSA/MSSA - Final Nasal Swab 10/07/24 17:50 Blood Culture - Preliminary Blood Assessment and Plan Assessment: Acute on chronic hypoxemic respiratory failure secondary to recurrent left-sided pleural effusion. Plan is for Pleurx catheter placement 10/10/2024 Recurrent left-sided pleural effusion with recent thoracentesis on 09/27/2024 positive for pulmonary adenocarcinoma Chronic and ongoing tobacco dependence History of vaping Chronic obstructive pulmonary disease Chronic alcohol abuse, recent stay at [facility] History of anxiety History of fibromyalgia Rheumatoid arthritis History of congestive heart failure Plan: The patient was seen and evaluated Labs and medications reviewed Pleurx catheter placement tomorrow Continue DuoNeb inhalations, Symbicort Procalcitonin negative Antibiotics discontinued Educated regarding smoking cessation NicoDerm patch in place We will continue to follow I have personally seen and examined the patient, performed the documentation and the assessment and plan as written. Number of minutes spent on the visit: 10 Dictation was produced using viseto dictation software. Please excuse any grammatical, word or spelling errors.
--- NOTE | 2024-10-09 15:54 | P.PN ---
Progress Note - Text Progress Note Date: 10/09/24 Chief Complaint: Short of breath 49-year-old patient who follows with Dr. Ruddy Real. Chronic stable medical conditions include fibromyalgia, rheumatoid arthritis, endometriosis, anxiety depression, hypertension, GERD. Around August 2024 at [facility] for alcohol rehab. Last drink August 2024 does vaping and also's cigarette smoking. August patient underwent bronchoscopy by Dr. SANTOS from pulmonary. Results are nonspecific. Malignancy could not be ruled out. Was admitted to the hospital here beginning of September.: When short of breath cough sputum. Thoracentesis showed metastatic non-small cell carcinoma having features compatible with pulmonary adenocarcinoma. Was discharged on 4 L of oxygen. So Dr. Santos outpatient was dropped to [address] Serrato from oncology was given different options including chemotherapy. Patient now presents with increasing shortness of breath. Cough sputum predominantly clear with significant amount. Does break out in a sweat. No fever no chills. Appetite is fair. No change in bowel pattern. Presented through the ER. October 09: Remains short of breath. Possibly Pleurx catheter to be placed by cardiothoracic team tomorrow. Continue bronchodilators. Eating fair. Active Medications Acetaminophen (Acetaminophen Tab 500 Mg Tab) 500 mg PO Q6HR PRN PRN Reason: Mild Pain or Fever > 100.5 Last Admin: 10/09/24 03:36 Dose: 500 mg Hydrocodone Bitart/Acetaminophen (Hydrocodone/Apap 5-325mg 1 Each Tab) 1 each PO Q6HR PRN PRN Reason: Pain Last Admin: 10/09/24 09:13 Dose: 1 each Albuterol/Ipratropium (Ipratropium-Albuterol 3 Ml Neb) 3 ml INHALATION RT-QID [facility] Last Admin: 10/09/24 14:48 Dose: 3 ml Budesonide/Formoterol Fumarate (Symbicort 160-4.5 Mcg Inhaler) 2 puff INHALATION RT-BID [facility] Last Admin: 10/09/24 07:35 Dose: 2 puff Bupropion HCl (Bupropion Xl 150 Mg Tab.Er.24h) 150 mg PO DAILY [facility] Last Admin: 10/09/24 09:14 Dose: 150 mg Clonidine (Clonidine Hcl 0.1 Mg Tab) 0.1 mg PO BID [facility] Last Admin: 10/09/24 09:14 Dose: 0.1 mg Furosemide (Furosemide 20 Mg Tab) 20 mg PO DAILY [facility] Last Admin: 10/09/24 09:14 Dose: 20 mg Hydroxyzine Pamoate (Hydroxyzine Pamoate 25 Mg Cap) 25 mg PO TID PRN PRN Reason: Anxiety Last Admin: 10/09/24 12:25 Dose: 25 mg Naloxone HCl (Naloxone 0.4 Mg/Ml 1 Ml Vial) 0.2 mg IV Q2M PRN PRN Reason: Opioid Reversal Nicotine (Nicotine 21mg/24hr Patch) 1 patch TRANSDERM DAILY [facility] Last Admin: 10/09/24 09:14 Dose: 1 patch Patient's Own ( Linaclotide [Linzess ] 290 Mcg Capsule) 290 mcg PO DAILY [facility] Last Admin: 10/09/24 09:15 Dose: Not Given Pantoprazole Sodium (Pantoprazole 40 Mg Tablet) 40 mg PO 0730 [facility] Last Admin: 10/09/24 09:14 Dose: 40 mg Senna/Docusate Sodium (Sennosides-Docusate Sodium 1 Each Tab) 1 each PO BID PRN PRN Reason: Constipation Social history: . Lives with her mother. Significant alcohol r intake in August 2024 admitted [place]. Does vaping also smoke up to half a pack a day for many years Physical examination: VITAL SIGNS: 98, 108, 24, 109 x 72, 92% on 5 L General: . Short of breath. Anxious a bit restless EYES: Pupils equal. Conjunctiva alyce l. HEENT: External appearance of nose and ears normal, oral cavity grossly normal. NECK: JVD not raised; masses not palpable. HEART: First and second heart sounds are normal; no edema. LUNGS: Respiratory rate increased, diminished breath sound on left side, expi ratory wheezing ABDOMEN: Soft, nontender, liver spleen not palpable, no masses palpable. PSYCH: Alert and oriented x3; mood and affect anxious INVESTIGATIONS, reviewed in the clinical context: Procalcitonin 0.06 October 07: White count 16.9 hemoglobin 16.3 platelets 25 sodium 135 potassium 4.3 creatinine 0.67 proBNP 88 troponin I less than 0.012 Chest x-ray film personally reviewed by me-large left pleural effusion. Scattered bilateral infiltrates September 2024: Pleural fluid cytology: Non-small cell adenocarcinoma CT angio chest [August 26, 2024]: More than 50 nodules throughout the lungs. Left upper lung masslike consolidation. 58 x 32 mm. Some nodules of central cavitation. Lymphadenopathy. Negative for PE Assessment plan: -Acute hypoxic respiratory failure combination of worsening COPD and increasing left pleural effusion secondary to carcinoma: Worsening Current oxygen 5 L -Acute COPD exacerbation in a smoker. Add Pulmicort DuoNeb 4 times daily Symbicort. -Recurrent large pleural effusion secondary to adenocarcinoma. Left thoracentesis done September 28: Dr. Willson. Will require repeat thoracentesis/Pleurx catheter due to rapid accumulation Cardiothoracic team planning for Pleurx catheter on Thursday -Chronic hypoxic respiratory failure secondary to COPD Home oxygen 3 L -Left upper lobe consolidation and multiple lung nodules. Adenocarcinoma.. Being followed by Dr. Serrato from oncology. Different options were discussed outpatient recently. -Doubt pneumonia. No antibiotics. Pulmonary following -Essential hypertension Catapres. -Chronic nicotine dependence plus vaping Nicotine patch 14 -Anxiety depression, anxiety Trazodone. Wellbutrin XL Atarax 25 mg every 8 as needed for anxiety -Full code Oxygen requirement has gone up. Add nebulized Pulmicort. Await Pleurx catheter placement by cardiothoracic team tomorrow. Past Medical History Past Medical History: Cancer, Heart Failure, Fibromyalgia, Rheumatoid Arthritis (RA) Additional Past Medical History / Comment(s): endometriosis, stage 4 lung cancer History of Any Multi-Drug Resistant Organisms: None Reported Past Surgical History: Section, Hernia Repair, Tubal Ligation Additional Past Surgical History / Comment(s): laproscopy Past Anesthesia/Blood Transfusion Reactions: No Reported Reaction Past Psychological History: Anxiety, Depression Smoking Status: Current every day smoker, Vaper Past Alcohol Use History: Abuse, Daily Additional Past Alcohol Use History / Comment(s): CAN USUALLY GO THREE TO 5 DAYS WITH OUT ALCOHOL Past Drug Use History: None Reported
[2024-10-09] MEDS: BUDESONIDE 1 MG/2 ML NEBU INHALATION SCH (19:15)
--- NOTE | 2024-10-10 07:19 | XR ---
EXAMINATION TYPE: XR chest 1V portable DATE OF EXAM: 10/10/2024 COMPARISON: 10/07/2024 CLINICAL INDICATION: Female, 49 years old with history of Recurrent left pleural effusion; , TECHNIQUE: XR chest 1V portable views of the chest. FINDINGS: Small right and large left pleural effusion which is significantly progressed from prior exam with ne ar complete opacification left hemithorax. Diffuse interstitial pattern pattern in the right with mul tifocal areas of patchy infiltrate. No pneumothorax. Heart is size is obscured by the consolidation. Osseous structures are stable. IMPRESSION: 1. Progression of a large left pleural effusion with now near complete opacification of the left rai thorax. 2. Small right pleural effusion with basilar consolidation and interstitial pattern correlate for sherly ous congestion or interstitial pneumonia. Underlying neoplasm not excluded. [facility], , 10/10/2024 7:17 AM
--- NOTE | 2024-10-10 13:49 | P.PN ---
Subjective Progress Note Date: 10/10/24 This is a pleasant 49-year-old female patient with a history of rheumatoid arthritis, fibromyalgia, anxiety/depression, chronic and ongoing tobacco dependence, alcohol abuse with previous treatment at [place] who also has a recent diagnosis of stage IV lung cancer. She had undergone thoracentesis on the left side on September 27, 2024 with fluid positive for metastatic non-small cell carcinoma features compatible with pulmonary adenocarcinoma. Since that time she has met with oncology. Further workup is pending. She presented here to the emergency room again yesterday October 06, 2024 with shortness of breath cough and congestion. Chest x-ray revealed recurrent left-sided pleural effusion. Ultrasound of the chest reveals a 15.3 cm pocket. White count 0.9. Hemoglobin 16.3. Platelets 285. INR 0.9. Sodium 135. Potassium 4.3. Bicarb 24. BUN 15. Creatinine 0.67. Glucose 107. Viral screen negative. She is seen today in consultation on the regular medical floor. She is currently sitting up at the bedside. Awake and alert in no acute distress. Maintaining good O2 saturations in the 90s on 3 L/min per nasal cannula. She is afebrile. Hemodynamically stable. The patient is seen today October 09, 2024 in follow-up on the regular medical floor. She is currently sitting up at the bedside. Awake and alert in no acute distress. Denies any worsening shortness of breath, cough or congestion. She is maintaining good O2 saturations in the 90s on 4 L/min per nasal cannula. She does have dyspnea on exertion. Procalcitonin was negative at 0.06. Rocephin discontinued. She remains on DuoNeb inhalations, Symbicort. NicoDerm patch in place. Remains on oral diuretics. The patient is seen today October 10, 2024 in follow-up on the regular medical floor. She is awake and alert in no acute distress. She is requiring oxygen at 6 L/min per nasal cannula. She is having some dyspnea on exertion. Chest x-ray shows progression of a large left pleural effusion with near complete opacification of the left hemithorax. Plan is for left-sided Pleurx catheter placement today. She remains on DuoNeb inhalations, Pulmicort inhalations. NicoDerm patch in place. Objective - Vital Signs Vital signs: Vital Signs Temp 97.3 F L 10/10/24 13:05 Pulse 100 10/10/24 13:05 Resp 19 10/10/24 13:05 BP 100/65 10/10/24 13:05 Pulse Ox 96 10/10/24 13:05 FiO2 Intake & Output 10/09/24 10/10/24 10/10/24 18:59 06:59 18:59 Intake Total 1542 240 Balance 1542 240 Intake: Oral 1542 240 Other: # Voids 3 2 - Exam GENERAL EXAM: Alert, pleasant 49-year-old female, sitting up in bed, on 6 L nasal cannula, in no apparent distress. HEAD: Normocephalic. EYES: Normal reaction of pupils, equal size. NOSE: Clear with pink turbinates. THROAT: No erythema or exudates. NECK: No masses, no JVD. CHEST: No chest wall deformity. LUNGS: Equal air entry with diminished breath sounds on the left. CVS: S1 and S2 normal with no audible murmur, regular rhythm. ABDOMEN: No hepatosplenomegaly, normal bowel sounds, no guarding or rigidity. SPINE: No scoliosis or deformity SKIN: No rashes CENTRAL NERVOUS SYSTEM: No focal deficits, tone is normal in all 4 extremities. EXTREMITIES: There is no peripheral edema. No clubbing, no cyanosis. Peripheral pulses are intact. - Labs CBC & Chem 7: 10/07/24 16:13 10/07/24 16:13 Labs: Microbiology - Last 24 Hours (Table) 10/07/24 17:50 Blood Culture - Preliminary Blood 10/07/24 18:00 Nasal Screen MRSA/MSSA - Final Nasal Swab Assessment and Plan Assessment: Acute on chronic hypoxemic respiratory failure secondary to recurrent left-sided pleural effusion. Plan is for Pleurx catheter placement today 10/10/2024 Recurrent left-sided pleural effusion with recent thoracentesis on 09/27/2024 positive for pulmonary adenocarcinoma Chronic and ongoing tobacco dependence History of vaping Chronic obstructive pulmonary disease Chronic alcohol abuse, recent stay at [facility] History of anxiety History of fibromyalgia Rheumatoid arthritis History of congestive heart failure Plan: The patient was seen and evaluated Chest x-ray and medications reviewed Near complete opacification of the left lung Pleurx catheter placement today Continue DuoNeb inhalations Educated regarding smoking cessation NicoDerm patch in place This patient was seen independently by the pulmonary nurse practitioner addressing pulmonary issues I have personally seen and examined the patient, performed the documentation and the assessment and plan as written. Number of minutes spent on the visit: 25 Dictation was produced using [employer] dictation software. Please excuse any grammatical, word or spelling errors.
[2024-10-10] MEDS: IV FLUID CONTINUATION 500 ML IV ONE (14:37)
[2024-10-10] MEDS: ONDANSETRON 4 MG/2 ML VIAL IVP STA (14:58)
[2024-10-10] MEDS: DEXAMETHASONE SOD PHOSPHATE 4 MG/ML 1 ML VIAL IVP STA (14:58)
[2024-10-10] MEDS: IV FLUID CONTINUATION 1,000 ML with ceFAZolin 2,000 MG IV ONE (15:32)
[2024-10-10] MEDS ORDERED: PROPOFOL 10 MG/ML 20 ML VIAL IV ONE (15:32)
[2024-10-10] MEDS ORDERED: MIDAZOLAM 2 MG/2 ML VIAL ONE (15:32)
[2024-10-10] MEDS ORDERED: KETAMINE HCL IN 0.9 % NACL 50 MG/5 ML SYRINGE ONE (15:32)
[2024-10-10] MEDS: LIDOCAINE 1%/EPI 1:200,000 MPF 10 ML VIAL SQ ONE ×2 (15:45→15:55)
--- NOTE | 2024-10-10 16:20 | FL ---
Intraoperative/procedural fluoroscopic services were provided for left-sided Pleurx catheter placemen t. Total fluoroscopy time is 6.7 seconds with a total of 2 submitted images to PACS. Total DAP 0.0299 0 mGym2. Please see the operative note for further details. [facility], , 10/10/2024 4:18 PM
--- NOTE | 2024-10-10 16:23 | P.PN ---
Progress Note - Text Progress Note Date: 10/10/24 Chief Complaint: Short of breath 49-year-old patient who follows with Dr. Ruddy Real. Chronic stable medical conditions include fibromyalgia, rheumatoid arthritis, endometriosis, anxiety depression, hypertension, GERD. Around August 2024 at [facility] for alcohol rehab. Last drink August 2024 does vaping and also's cigarette smoking. August patient underwent bronchoscopy by Dr. SANTOS from pulmonary. Results are nonspecific. Malignancy could not be ruled out. Was admitted to the hospital here beginning of September.: When short of breath cough sputum. Thoracentesis showed metastatic non-small cell carcinoma having features compatible with pulmonary adenocarcinoma. Was discharged on 4 L of oxygen. So Dr. Santos outpatient was dropped to [address] Serrato from oncology was given different options including chemotherapy. Patient now presents with increasing shortness of breath. Cough sputum predominantly clear with significant amount. Does break out in a sweat. No fever no chills. Appetite is fair. No change in bowel pattern. Presented through the ER. October 09: Remains short of breath. Possibly Pleurx catheter to be placed by cardiothoracic team tomorrow. Continue bronchodilators. Eating fair. October 10: Seen this morning. Pending Pleurx catheter placement this afternoon. Shortness of breath present. No other issues. Active Medications Acetaminophen (Acetaminophen Tab 500 Mg Tab) 500 mg PO Q6HR PRN PRN Reason: Mild Pain or Fever > 100.5 Last Admin: 10/10/24 10:24 Dose: 500 mg Hydrocodone Bitart/Acetaminophen (Hydrocodone/Apap 5-325mg 1 Each Tab) 1 each PO Q6HR PRN PRN Reason: Pain Last Admin: 10/10/24 12:56 Dose: 1 each Albuterol/Ipratropium (Ipratropium-Albuterol 3 Ml Neb) 3 ml INHALATION RT-QID [facility] Last Admin: 10/10/24 15:16 Dose: Not Given Budesonide (Budesonide 1 Mg/2 Ml Nebu) 1 mg INHALATION RT-BID [facility] Last Admin: 10/10/24 07:34 Dose: 1 mg Bupropion HCl (Bupropion Xl 150 Mg Tab.Er.24h) 150 mg PO DAILY [facility] Last Admin: 10/10/24 08:50 Dose: 150 mg Clonidine (Clonidine Hcl 0.1 Mg Tab) 0.1 mg PO BID [facility] Last Admin: 10/10/24 08:50 Dose: 0.1 mg Furosemide (Furosemide 20 Mg Tab) 20 mg PO DAILY [facility] Last Admin: 10/10/24 08:50 Dose: 20 mg Hydroxyzine Pamoate (Hydroxyzine Pamoate 25 Mg Cap) 25 mg PO TID PRN PRN Reason: Anxiety Last Admin: 10/10/24 06:47 Dose: 25 mg Naloxone HCl (Naloxone 0.4 Mg/Ml 1 Ml Vial) 0.2 mg IV Q2M PRN PRN Reason: Opioid Reversal Nicotine (Nicotine 21mg/24hr Patch) 1 patch TRANSDERM DAILY [facility] Last Admin: 10/10/24 08:50 Dose: 1 patch Patient's Own ( Linaclotide [Linzess ] 290 Mcg Capsule) 290 mcg PO DAILY [facility] Last Admin: 10/10/24 08:51 Dose: Not Given Pantoprazole Sodium (Pantoprazole 40 Mg Tablet) 40 mg PO 0730 [facility] Last Admin: 10/10/24 08:50 Dose: 40 mg Senna/Docusate Sodium (Sennosides-Docusate Sodium 1 Each Tab) 1 each PO BID PRN PRN Reason: Constipation Social history: . Lives with her mother. Significant alcohol r intake in August 2024 admitted [place]. Does vaping also smoke up to half a pack a day for many years Physical examination: VITAL SIGNS: 8 febrile, 101, 19, 133 x 77, 94% on 6 L General: . Short of breath. Anxious a bit restless EYES: Pupils equal. Conjunctiva alyce l. HEENT: External appearance of nose and ears normal, oral cavity grossly normal. NECK: JVD not raised; masses not palpable. HEART: First and second heart sounds are normal; no edema. LUNGS: Respiratory rate increased, diminished breath sound on left side, expiratory wheezing ABDOMEN: Soft, nontender, liver spleen not palpable, no masses palpable. PSYCH: Alert and oriented x3; mood and affect anxious INVESTIGATIONS, reviewed in the clinical context: Procalcitonin 0.06 October 07: White count 16.9 hemoglobin 16.3 platelets 25 sodium 135 potassium 4.3 creatinine 0.67 proBNP 88 troponin I less than 0.012 Chest x-ray film personally reviewed by me-large left pleural effusion. Scattered bilateral infiltrates September 2024: Pleural fluid cytology: Non-small cell adenocarcinoma CT angio chest [August 26, 2024]: More than 50 nodules throughout the lungs. Left upper lung masslike consolidation. 58 x 32 mm. Some nodules of central cavitation. Lymphadenopathy. Negative for PE Assessment plan: -Acute hypoxic respiratory failure combination of worsening COPD and increasing left pleural effusion secondary to carcinoma: Not improving Current oxygen 6 L -Acute COPD exacerbation in a smoker. Nebulized Pulmicort DuoNeb 4 times daily Symbicort. -Recurrent large pleural effusion secondary to adenocarcinoma. Left thoracentesis done September 28: Dr. Willson. Will require repeat thoracentesis/Pleurx catheter due to rapid accumulation Cardiothoracic team planning for Pleurx catheter this afternoon -Chronic hypoxic respiratory failure secondary to COPD Home oxygen 3 L -Left upper lobe consolidation and multiple lung nodules. Adenocarcinoma.. Being followed by Dr. Serrato from oncology. Different options were discussed outpa tient recently. -Doubt pneumonia. No antibiotics. Pulmonary following -Essential hypertension Catapres. -Chronic nicotine dependence plus vaping Nicotine patch 14 -Anxiety depression, anxiety Trazodone. Wellbutrin XL Atarax 25 mg every 8 as needed for anxiety -Full code Await Pleurx catheter placement. Other medication to continue. Past Medical History Past Medical History: Cancer, Heart Failure, Fibromyalgia, Rheumatoid Arthritis (RA) Additional Past Medical History / Comment(s): endometriosis, stage 4 lung cancer History of Any Multi-Drug Resistant Organisms: None Reported Past Surgical History: Section, Hernia Repair, Tubal Ligation Additional Past Surgical History / Comment(s): laproscopy Past Anesthesia/Blood Transfusion Reactions: No Reported Reaction Past Psychological History: Anxiety, Depression Smoking Status: Current every day smoker, Vaper Past Alcohol Use History: Abuse, Daily Additional Past Alcohol Use History / Comment(s): CAN USUALLY GO THREE TO 5 DAYS WITH OUT ALCOHOL Past Drug Use History: None Reported
--- NOTE | 2024-10-10 16:37 | XR ---
EXAMINATION TYPE: XR chest 1V portable DATE OF EXAM: 10/10/2024 4:31 PM COMPARISON: Chest radiographs from 10/10/2024 CLINICAL INDICATION: Female, 49 years old with history of Postop PleurX catheter placement; [facility] TECHNIQUE: XR chest 1V portable Frontal view of the chest. FINDINGS: Lungs/Pleura: Multifocal airspace opacities. Improved aeration of the left lung with decrease in left pleural effusion. No evidence of pneumothorax. There remains small bilateral pleural effusions. Pulmonary vascularity: Unremarkable. Heart/mediastinum: Cardiomediastinal silhouette is unremarkable. Musculoskeletal: No acute osseous pathology. Other findings: None Lines/Tubes:Left thoracotomy tube is present without evidence of pneumothorax. IMPRESSION: Improved aeration of the left lung with persistent left pleural effusion. Left Pleurx catheter in mima ce no evidence for pneumothorax. [facility], , 10/10/2024 4:34 PM
[2024-10-10] MEDS: fentaNYL (PF) 50 MCG/ML 2 ML AMP IVP PRN (16:50)
--- NOTE | 2024-10-10 17:00 | P.PCN ---
Date of Procedure: 10/10/24 Preoperative Diagnosis: Left malignant pleural effusion, recurrent Postoperative Diagnosis: Same Procedure(s) Performed: Left sided Pleur-evac placement under fluoroscopy Implants: Standard Pleurx catheter Anesthesia: MAC, local Surgeon: Kwan Prescott Estimated Blood Loss (ml): 5 Pathology: none sent Condition: stable Disposition: PACU Indications for Procedure: Stage IV lung cancer with recurrent malignant left pleural effusion Operative Findings: Significant serosanguineous fluid with exaggerated cough response on reexpansion with 1 L removed in the OR prior to attaching a Pleur-evac Description of Procedure: After consent was obtained, the patient was brought to the operating room where she underwent monitored anesthesia care with a dose of ketamine given. She was placed in semirecumbent position with the left arm tucked to the side and a bump placed under her left chest. After a timeout was observed whereby the patient, the procedure, the site, the side, antibiotic delivery and personnel were all confirmed with the films reviewed we proceeded to camilo and inject the patient with local anesthetic. She was injected over the tract as well as the entry and exit sites and the chest wall was anesthetized deep at the entry site. We then proceeded to make a small incision with an 11 blade knife and through that small incision posterior laterally on the right chest at roughly the eighth intercostal space, we accessed the pleural effusion. We removed the needle from the Angiocath and used the Angiocath to feed a 0.035 inch guidewire into the chest. We brought the fluoroscopy into confirm that the wire was in good position and once we had that confirmation, we went ahead and tunneled the Pleurx catheter subcutaneously from an anterior counterincision of 5 mm through the site where the wire was accessing the chest cavity. Once that was brought through and the felt cuff was located directly beneath the skin at the exit site, we were able to place our dilator and peel-away sheath over the wire and into the chest. We then remove the wire and dilator leaving the peel-away sheath through which we were able to place the end of the Pleurx catheter. We advanced the Pleurx catheter until it was at the chest wall and then we removed the peel-away sheath holding the catheter in place and feeding the catheter and without kinks into the chest cavity. We verified that there were no kinks on the fluoroscope as well as location of the entire catheter with all sideholes in the dependent chest cavity. We also verified that there was no evidence of a pneumothorax and once that was complete, we fixed the Pleurx catheter in place with a 2-0 silk suture at the exit site and we closed the access site in 2 layers with a 4-0 Vicryl deep buried interrupted as well as a 4-0 Monocryl suture for the skin. She was dressed with skin glue at the entry site and with the included dressing at the exit site. Of note we did hooked the catheter to suction and removed a liter of serosanguineous fluid prior to attaching her to a Pleur-evac at -20 suction.
--- NOTE | 2024-10-11 08:26 | XR ---
EXAMINATION TYPE: XR chest 1V DATE OF EXAM: 10/11/2024 CLINICAL HISTORY: Difficulty breathing progress study. . Pleurx catheter placement TECHNIQUE: Single AP portable frontal view of the chest is obtained. COMPARISON: Chest x-ray from one day earlier and older studies. FINDINGS: Persistent bilateral multifocal increased opacities and bilateral multifocal pulmonary nod ules along with small to moderate size right greater than left pleural effusions. Cardiac size stable within normal limits. Left basilar pleural drainage catheter noted. Osseous structures are intact. IMPRESSION: Bilateral pulmonary nodules with multifocal bilateral acute infiltrates and/or atelectasi s. Stable small to moderate size right pleural effusion. Stable smaller left pleural effusion with le ft basilar pleural drainage catheter. No significant change from one day earlier. [facility], , 10/11/2024 8:24 AM
--- NOTE | 2024-10-11 09:42 | P.PN ---
Subjective Progress Note Date: 10/11/24 Principal diagnosis: Recurrent left pleural effusion. Past medical history significant for rheumatoid arthritis, history of EtOH which she reports she has undergone previous rehabilitation at [facility] and has not had EtOH use for around 7 weeks, chronic ongoing tobacco dependence smokes about 1 and half packs of cigarettes a day, as well as vapes, irritable bowel syndrome, endometriosis, fibromyalgia, history of congestive heart failure, and a recent diagnosis of lung cancer. POD #1 left Pleurx catheter placement. The patient was seen and examined in follow-up today October 11, 2024 at her bedside on the fifth floor medical oncology unit. The patient is currently laying in bed, is awake, alert, oriented x 3 and is in no acute apparent distress. She denies any complaints of pain or shortness of breath at this time, and reports that her breathing has much improved within the last 24 hours after having the Pleurx catheter placed. Oxygen saturations are 92% on 5 L nasal cannula. The left Pleurx catheter is currently hooked to a Pleur-evac system on low continuous wall suction -20 cm H2O. No air leak is present. The Pleurx catheter has drained 330 mL in the last 24 hours. Chest x-ray results reviewed. Objective - Vital Signs Vital signs: Vital Signs Temp 97.7 F 10/11/24 07:10 Pulse 100 10/11/24 09:08 Resp 17 10/11/24 07:10 BP 99/63 10/11/24 07:10 Pulse Ox 93 L 10/11/24 07:10 FiO2 Intake & Output 10/10/24 10/11/24 10/11/24 18:59 06:59 18:59 Intake Total 250 1320 540 Output Total 5 330 Balance 245 990 540 Intake: IV 250 Oral 1320 540 Output: Drainage 330 Right Anterior Chest 330 Estimated Blood Loss 5 Other: # Voids 2 2 - Exam CONSTITUTIONAL: Appears comfortable, cooperative, no acute distress RESPIRATORY: Lungs sounds diminished bilaterally, left greater than right. Respirations even, nonlabored. Currently on 5 L nasal cannula oxygen with oxygen saturation 92%. Strong cough. CARDIOVASCULAR: S1, S2 present. Regular rate and rhythm, sinus rhythm on telemetry. Palpable peripheral pulses bilaterally. No edema present. No calf pain or tenderness noted. GASTROINTESTINAL: Abdomen soft, nontender, nondistended. Active bowel sounds present 4 quadrants. Tolerating diet. GENITOURINARY: Continues to void. INTEGUMENTARY: Skin is warm and dry with evidence of good perfusion. Left Pleurx catheter dressing and site, clean, dry and intact. NEUROLOGIC: Cranial nerves II through XII intact. No focal deficits. MUSKULOSKELETAL: Able to move all extremities, strength equal bilaterally, gait normal, generalized weakness. PSYCHIATRIC: Alert and oriented to person place and time, appropriate affect, intact judgment and insight - Allied health notes Allied health notes reviewed: nursing - Labs CBC & Chem 7: 10/07/24 16:13 10/07/24 16:13 Labs: Microbiology - Last 24 Hours (Table) 10/07/24 17:50 Blood Culture - Preliminary Blood - Imaging and Cardiology Chest x-ray: report reviewed, image reviewed Assessment and Plan Assessment: Recurrent left-sided pleural effusion, possibly malignant, history of positive pleural fluid cytology, status post placement of left Pleurx catheter Multiple bilateral pulmonary nodules, recent diagnosis of metastatic lung cancer Acute hypoxic respiratory failure on home oxygen as an outpatient Chronic ongoing tobacco dependence and vaping History of EtOH, has abstained from alcohol for 7 weeks Rheumatoid arthritis Endometriosis Fibromyalgia History of congestive heart failure Anxiety Depression Plan: Pleurx catheter will be Today and dressed, Pleurx catheter teaching will be completed with the patient. We will follow the patient on an as-needed basis, please reconsult if necessary. Encourage use of incentive spirometry 10 times every hour while awake. Medical management of other comorbidities per internal medicine and pulmonary/critical care medicine service. More recommendations to follow based on patient's clinical course. Time with Patient: Greater than 30
--- NOTE | 2024-10-11 14:24 | P.PN ---
Subjective Progress Note Date: 10/11/24 This is a pleasant 49-year-old female patient with a history of rheumatoid arthritis, fibromyalgia, anxiety/depression, chronic and ongoing tobacco dependence, alcohol abuse with previous treatment at [facility] who also has a recent diagnosis of stage IV lung cancer. She had undergone thoracentesis on the left side on September 27, 2024 with fluid positive for metastatic non-small cell carcinoma features compatible with pulmonary adenocarcinoma. Since that time she has met with oncology. Further workup is pending. She presented here to the emergency room again yesterday October 06, 2024 with shortness of breath cough and congestion. Chest x-ray revealed recurrent left-sided pleural effusion. Ultrasound of the chest reveals a 15.3 cm pocket. White count 0.9. Hemoglobin 16.3. Platelets 285. INR 0.9. Sodium 135. Potassium 4.3. Bicarb 24. BUN 15. Creatinine 0.67. Glucose 107. Viral screen negative. She is seen today in consultation on the regular medical floor. She is currently sitting up at the bedside. Awake and alert in no acute distress. Maintaining good O2 saturations in the 90s on 3 L/min per nasal cannula. She is afebrile. Hemodynamically stable. The patient is seen today October 09, 2024 in follow-up on the regular medical floor. She is currently sitting up at the bedside. Awake and alert in no acute distress. Denies any worsening shortness of breath, cough or congestion. She is maintaining good O2 saturations in the 90s on 4 L/min per nasal cannula. She does have dyspnea on exertion. Procalcitonin was negative at 0.06. Rocephin discontinued. She remains on DuoNeb inhalations, Symbicort. NicoDerm patch in place. Remains on oral diuretics. The patient is seen today October 10, 2024 in follow-up on the regular medical floor. She is awake and alert in no acute distress. She is requiring oxygen at 6 L/min per nasal cannula. She is having some dyspnea on exertion. Chest x-ray shows progression of a large left pleural effusion with near complete opacification of the left hemithorax. Plan is for left-sided Pleurx catheter placement today. She remains on DuoNeb inhalations, Pulmicort inhalations. NicoDerm patch in place. The patient is seen today October 11, 2024 in follow-up on the regular medical floor. She is sitting up at the bedside. Awake and alert in no acute distress. Breathing easier today compared to yesterday. She did have a left-sided Pleurx catheter placed yesterday. Chest x-ray shows bilateral pulmonary nodules with multifocal bilateral acute infiltrates and/or/atelectasis. Small right sided pleural effusion. Smaller left pleural effusion with catheter in place. No evidence of pneumothorax. He is maintaining good O2 saturations in the 90s on 5 L/min per nasal cannula. She is afebrile. Hemodynamically stable. Remains on bronchodilators. NicoDerm patch in place. Objective - Vital Signs Vital signs: Vital Signs Temp 97.9 F 10/11/24 13:46 Pulse 87 10/11/24 13:46 Resp 20 10/11/24 13:46 BP 110/76 10/11/24 13:46 Pulse Ox 92 L 10/11/24 13:46 FiO2 Intake & Output 10/10/24 10/11/24 10/11/24 18:59 06:59 18:59 Intake Total 250 1320 540 Output Total 5 330 Balance 245 990 540 Intake: IV 250 Oral 1320 540 Output: Drainage 330 Right Anterior Chest 330 Estimated Blood Loss 5 Other: # Voids 2 2 1 - Exam GENERAL EXAM: Alert, 49-year-old female, on 5 L nasal cannula, in no apparent distress. HEAD: Normocephalic. EYES: Normal reaction of pupils, equal size. NOSE: Clear with pink turbinates. THROAT: No erythema or exudates. NECK: No masses, no JVD. CHEST: No chest wall deformity. Left-sided Pleurx catheter in place. LUNGS: Equal air entry with diminished breath sounds on the left. CVS: S1 and S2 normal with no audible murmur, regular rhythm. ABDOMEN: No hepatosplenomegaly, normal bowel sounds, no guarding or rigidity. SPINE: No scoliosis or deformity SKIN: No rashes CENTRAL NERVOUS SYSTEM: No focal deficits, tone is normal in all 4 extremities. EXTREMITIES: There is no peripheral edema. No clubbing, no cyanosis. Peripheral pulses are intact. - Labs CBC & Chem 7: 10/07/24 16:13 10/07/24 16:13 Labs: Microbiology - Last 24 Hours (Table) 10/07/24 17:50 Blood Culture - Preliminary Blood Assessment and Plan Assessment: Acute on chronic hypoxemic respiratory failure secondary to recurrent left-sided pleural effusion. Pleurx catheter inserted on 10/10/2024 Recurrent left-sided pleural effusion with recent thoracentesis on 09/27/2024 positive for pulmonary adenocarcinoma Chronic and ongoing tobacco dependence History of vaping Chronic obstructive pulmonary disease Chronic alcohol abuse, recent stay at [facility] History of anxiety History of fibromyalgia Rheumatoid arthritis History of congestive heart failure Plan: The patient was seen and evaluated Chest x-ray and medications reviewed Pleurx catheter placed yesterday Continue DuoNeb inhalations Titrate down the FiO2 as tolerated Educated regarding smoking cessation NicoDerm patch in place Probable discharge in the a.m. This patient was seen independently by the pulmonary nurse practitioner addressing pulmonary issues I have personally seen and examined the patient, performed the documentation and the assessment and plan as written. Number of minutes spent on the visit: 23 Dictation was produced using [employer] dictation software. Please excuse any grammatical, word or spelling errors.
--- NOTE | 2024-10-11 14:27 | P.PN ---
Progress Note - Text Progress Note Date: 10/11/24 Chief Complaint: Short of breath 49-year-old patient who follows with Dr. Ruddy Real. Chronic stable medical conditions include fibromyalgia, rheumatoid arthritis, endometriosis, anxiety depression, hypertension, GERD. Around August 2024 at [facility] for alcohol rehab. Last drink August 2024 does vaping and also's cigarette smoking. August patient underwent bronchoscopy by Dr. SANTOS from pulmonary. Results are nonspecific. Malignancy could not be ruled out. Was admitted to the hospital here beginning of September.: When short of breath cough sputum. Thoracentesis showed metastatic non-small cell carcinoma having features compatible with pulmonary adenocarcinoma. Was discharged on 4 L of oxygen. So Dr. Santos outpatient was dropped to [address] Serrato from oncology was given different options including chemotherapy. Patient now presents with increasing shortness of breath. Cough sputum predominantly clear with significant amount. Does break out in a sweat. No fever no chills. Appetite is fair. No change in bowel pattern. Presented through the ER. October 09: Remains short of breath. Possibly Pleurx catheter to be placed by cardiothoracic team tomorrow. Continue bronchodilators. Eating fair. October 10: Seen this morning. Pending Pleurx catheter placement this afternoon. Shortness of breath present. No other issues. October 11: Pleurx catheter was placed yesterday. Patient's worked up to evacuate system yesterday. This is discontinued this morning. Patient currently on 5 L of oxygen. Some improvement in breathing. Plan is to the patient discharge tomorrow and patient will go for a bone scan as outpatient. Active Medications Acetaminophen (Acetaminophen Tab 500 Mg Tab) 500 mg PO Q6HR PRN PRN Reason: Mild Pain or Fever > 100.5 Last Admin: 10/11/24 02:47 Dose: 500 mg Hydrocodone Bitart/Acetaminophen (Hydrocodone/Apap 5-325mg 1 Each Tab) 1 each PO Q6HR PRN PRN Reason: Pain Last Admin: 10/11/24 09:13 Dose: 1 each Albuterol/Ipratropium (Ipratropium-Albuterol 3 Ml Neb) 3 ml INHALATION RT-QID [facility] Last Admin: 10/11/24 12:23 Dose: 3 ml Budesonide (Budesonide 1 Mg/2 Ml Nebu) 1 mg INHALATION RT-BID [facility] Last Admin: 10/11/24 08:52 Dose: 1 mg Bupropion HCl (Bupropion Xl 150 Mg Tab.Er.24h) 150 mg PO DAILY [facility] Last Admin: 10/11/24 09:13 Dose: 150 mg Clonidine (Clonidine Hcl 0.1 Mg Tab) 0.1 mg PO BID [facility] Last Admin: 10/11/24 09:19 Dose: Not Given Fentanyl Citrate (Fentanyl (Pf) 50 Mcg/Ml 2 Ml Amp) 50 mcg IVP Q5M PRN PRN Reason: Pain Stop: 10/11/24 16:43 Last Admin: 10/10/24 16:50 Dose: 50 mcg Furosemide (Furosemide 20 Mg Tab) 20 mg PO DAILY [facility] Last Admin: 10/11/24 09:13 Dose: 20 mg Hydroxyzine Pamoate (Hydroxyzine Pamoate 25 Mg Cap) 25 mg PO TID PRN PRN Reason: Anxiety Last Admin: 10/11/24 02:48 Dose: 25 mg Naloxone HCl (Naloxone 0.4 Mg/Ml 1 Ml Vial) 0.2 mg IV Q2M PRN PRN Reason: Opioid Reversal Nicotine (Nicotine 21mg/24hr Patch) 1 patch TRANSDERM DAILY [facility] Last Admin: 10/11/24 09:13 Dose: 1 patch Patient's Own ( Linaclotide [Linzess ] 290 Mcg Capsule) 290 mcg PO DAILY [facility] Last Admin: 10/11/24 09:19 Dose: Not Given Pantoprazole Sodium (Pantoprazole 40 Mg Tablet) 40 mg PO 0730 [facility] Last Admin: 10/11/24 09:13 Dose: 40 mg Senna/Docusate Sodium (Sennosides-Docusate Sodium 1 Each Tab) 1 each PO BID PRN PRN Reason: Constipation Social history: . Lives with her mother. Significant alcohol r intake in August 2024 admitted [place] [facility]. Does vaping also smoke up to half a pack a day for many years Physical examination: VITAL SIGNS: 97.9, 87, 20, 110 x 76, 92% on 5 L General: . Short of breath. Anxious a bit restless EYES: Pupils equal. Conjunctiva alyce l. HEENT: External appearance of nose and ears normal, oral cavity grossly normal. NECK: JVD not raised; masses not palpable. HEART: First and second heart sounds are normal; no edema. LUNGS: Respiratory rate increased, diminished breath sound on left side,. Pleurx catheter ABDOMEN: Soft, nontender, liver spleen not palpable, no masses palpable. PSYCH: Alert and oriented x3; mood and affect anxious INVESTIGATIONS, reviewed in the clinical context: Procalcitonin 0.06 October 07: White count 16.9 hemoglobin 16.3 platelets 25 sodium 135 potassium 4.3 creatinine 0.67 proBNP 88 troponin I less than 0.012 Chest x-ray film personally reviewed by me-large left pleural effusion. Scattered bilateral infiltrates September 2024: Pleural fluid cytology: Non-small cell adenocarcinoma CT angio chest [August 26, 2024]: More than 50 nodules throughout the lungs. Left upper lung masslike consolidation. 58 x 32 mm. Some nodules of central cavitation. Lymphadenopathy. Negative for PE Assessment plan: -Acute hypoxic respiratory failure combination of worsening COPD and increasing left pleural effusion secondary to carcinoma: Not improving Current oxygen 5 L -Acute COPD exacerbation in a smoker.: Better Nebulized Pulmicort DuoNeb 4 times daily Symbicort. -Recurrent large pleural effusion secondary to adenocarcinoma. Left thoracentesis done September 28: Dr. Willson. Will require repeat thoracentesis/Pleurx catheter due to rapid accumulation Cardiothoracic team following Left-sided Pleurx catheter placed October 10. -Chronic hypoxic respiratory failure secondary to COPD Home oxygen 3 L -Left upper lobe consolidation and multiple lung nodules. Adenocarcinoma.. Being followed by Dr. Serrato from oncology. Different options were discussed outpatient recently. -Doubt pneumonia. No antibiotics. Pulmonary following -Essential hypertension Catapres. -Chronic nicotine dependence plus vaping Nicotine patch 14 -Anxiety depression, anxiety Trazodone. Wellbutrin XL Atarax 25 mg every 8 as needed for anxiety -Full code Pleurx catheter back in system removed this morning. Plan to discharge tomorrow. Past Medical History Past Medical History: Cancer, Heart Failure, Fibromyalgia, Rheumatoid Arthritis (RA) Additional Past Medical History / Comment(s): endometriosis, stage 4 lung cancer History of Any Multi-Drug Resistant Organisms: None Reported Past Surgical History: Section, Hernia Repair, Tubal Ligation Additional Past Surgical History / Comment(s): laproscopy Past Anesthesia/Blood Transfusion Reactions: No Reported Reaction Past Psychological History: Anxiety, Depression Smoking Status: Current every day smoker, Vaper Past Alcohol Use History: Abuse, Daily Additional Past Alcohol Use History / Comment(s): CAN USUALLY GO THREE TO 5 DAYS WITH OUT ALCOHOL Past Drug Use History: None Reported
[2024-10-12 01:18] LABS: Amorphous Sediment,Urine Occasional /hpf; Appearance,Urine Cloudy (Clear); Bacteria,Urine Occasional /hpf; Bilirubin,Urine Negative (Negative); Blood,Urine Negative (Negative); Calcium Oxalate Crystals,Urine Occasional /hpf; Color,Urine Yellow; Glucose,Urine (UA) Negative (Negative); Hyaline Casts,Urine 1 /lpf (0-2); Ketones,Urine Negative (Negative); Leukocyte Esterase,Urine Trace (Negative); Mucus,Urine Moderate /hpf; Nitrite,Urine Negative (Negative); PH, Urine 5.5 (5.0-8.0); Protein,Urine Trace (Negative); RBC,Urine 1 /hpf (0-5); Specific Gravity,Urine 1.032 (1.001-1.035); Squamous Epithelial Cell,Urine 12 /hpf (0-4); Urobilinogen,Urine <2.0 mg/dL (<2.0); WBC,Urine 2 /hpf (0-5)
[2024-10-12] MEDS: ALBUTEROL NEBULIZED 2.5 MG/3 ML INHALATION PRN (04:48)
[2024-10-12 07:35] VITALS: BP 100/66; TEMP 97.9
[2024-10-12 09:55] VITALS: PULSE 101; RESP 20
--- NOTE | 2024-10-12 12:57 | P.PN ---
Subjective Progress Note Date: 10/12/24 This is a pleasant 49-year-old female patient with a history of rheumatoid arthritis, fibromyalgia, anxiety/depression, chronic and ongoing tobacco dependence, alcohol abuse with previous treatment at [place] who also has a recent diagnosis of stage IV lung cancer. She had undergone thoracentesis on the left side on September 27, 2024 with fluid positive for metastatic non-small cell carcinoma features compatible with pulmonary adenocarcinoma. Since that time she has met with oncology. Further workup is pending. She presented here to the emergency room again yesterday October 06, 2024 with shortness of breath cough and congestion. Chest x-ray revealed recurrent left-sided pleural effusion. Ultrasound of the chest reveals a 15.3 cm pocket. White count 0.9. Hemoglobin 16.3. Platelets 285. INR 0.9. Sodium 135. Potassium 4.3. Bicarb 24. BUN 15. Creatinine 0.67. Glucose 107. Viral screen negative. She is seen today in consultation on the regular medical floor. She is currently sitting up at the bedside. Awake and alert in no acute distress. Maintaining good O2 saturations in the 90s on 3 L/min per nasal cannula. She is afebrile. Hemodynamically stable. The patient is seen today October 09, 2024 in follow-up on the regular medical floor. She is currently sitting up at the bedside. Awake and alert in no acute distress. Denies any worsening shortness of breath, cough or congestion. She is maintaining good O2 saturations in the 90s on 4 L/min per nasal cannula. She does have dyspnea on exertion. Procalcitonin was negative at 0.06. Rocephin discontinued. She remains on DuoNeb inhalations, Symbicort. NicoDerm patch in place. Remains on oral diuretics. The patient is seen today October 10, 2024 in follow-up on the regular medical floor. She is awake and alert in no acute distress. She is requiring oxygen at 6 L/min per nasal cannula. She is having some dyspnea on exertion. Chest x-ray shows progression of a large left pleural effusion with near complete opacification of the left hemithorax. Plan is for left-sided Pleurx catheter placement today. She remains on DuoNeb inhalations, Pulmicort inhalations. NicoDerm patch in place. The patient is seen today October 11, 2024 in follow-up on the regular medical floor. She is sitting up at the bedside. Awake and alert in no acute distress. Breathing easier today compared to yesterday. She did have a left-sided Pleurx catheter placed yesterday. Chest x-ray shows bilateral pulmonary nodules with multifocal bilateral acute infiltrates and/or/atelectasis. Small right sided pleural effusion. Smaller left pleural effusion with catheter in place. No evidence of pneumothorax. He is maintaining good O2 saturations in the 90s on 5 L/min per nasal cannula. She is afebrile. Hemodynamically stable. Remains on bronchodilators. NicoDerm patch in place. The patient is seen today October 12, 2024 in follow-up on the regular medical floor. Awake and alert in no acute distress. Still having some complaints with dyspnea on exertion. She is maintaining O2 saturations in the 90s on 5 L/min per nasal cannula. She is afebrile. Hemodynamically stable. She did have her left-sided Pleurx catheter placed on October 10, 2024. Continues on DuoNeb inhalations. NicoDerm patch in place. Objective - Vital Signs Vital signs: Vital Signs Temp 97.9 F 10/12/24 07:00 Pulse 101 H 10/12/24 09:55 Resp 20 10/12/24 09:55 BP 100/66 10/12/24 07:00 Pulse Ox 95 10/12/24 09:39 FiO2 Intake & Output 10/11/24 10/12/24 10/12/24 18:59 06:59 18:59 Intake Total 1620 540 Balance 1620 540 Intake: Oral 1620 540 Other: Voiding Method Toilet # Voids 3 4 - Exam GENERAL EXAM: Alert, pleasant 49-year-old female, sitting up at the bedside, on 5 L nasal cannula, in no apparent distress. HEAD: Normocephalic. EYES: Normal reaction of pupils, equal size. NOSE: Clear with pink turbinates. THROAT: No erythema or exudates. NECK: No masses, no JVD. CHEST: No chest wall deformity. Left-sided Pleurx catheter in place. LUNGS: Equal air entry with diminished breath sounds on the left. CVS: S1 and S2 normal with no audible murmur, regular rhythm. ABDOMEN: No hepatosplenomegaly, normal bowel sounds, no guarding or rigidity. SPINE: No scoliosis or deformity SKIN: No rashes CENTRAL NERVOUS SYSTEM: No focal deficits, tone is normal in all 4 extremities. EXTREMITIES: There is no peripheral edema. No clubbing, no cyanosis. Peripheral pulses are intact. - Labs CBC & Chem 7: 10/07/24 16:13 10/07/24 16:13 Labs: Abnormal Lab Results - Last 24 Hours (Table) 10/11/24 Range/Units 23:45 Urine Appearance Cloudy H (Clear) Urine Protein Trace H (Negative) Ur Leukocyte Esterase Trace H (Negative) Ur Squamous Epith Cells 12 H (0-4) /hpf Calcium Oxalate Crystal Occasional H (None) /hpf Amorphous Sediment Occasional H (None) /hpf Urine Bacteria Occasional H (None) /hpf Urine Mucus Moderate H (None) /hpf Assessment and Plan Assessment: Acute on chronic hypoxemic respiratory failure secondary to recurrent left-sided pleural effusion. Pleurx catheter inserted on 10/10/2024 Recurrent left-sided pleural effusion with recent thoracentesis on 09/27/2024 positive for pulmonary adenocarcinoma Chronic and ongoing tobacco dependence History of vaping Chronic obstructive pulmonary disease Chronic alcohol abuse, recent stay at [facility] History of anxiety History of fibromyalgia Rheumatoid arthritis History of congestive heart failure Plan: The patient was seen and evaluated Medications reviewed Pleurx catheter in place Continue DuoNeb inhalations Titrate down the FiO2 as tolerated Educated regarding smoking cessation NicoDerm patch in place Plan is for PET scan this week post discharge Follow-up closely with oncology This patient was seen independently by the pulmonary nurse practitioner addressing pulmonary issues I have personally seen and examined the patient, performed the documentation and the assessment and plan as written. Number of minutes spent on the visit: 24 Dictation was produced using [employer] dictation software. Please excuse any grammatical, word or spelling errors.
--- NOTE | 2024-10-12 16:13 | P.DS ---
Providers Date of admission: 10/07/24 21:55 Expected date of discharge: 10/12/24 Attending physician: Homero Celaya Consults: 10/07/24 18:04 Consult Physician Stat Consulting Provider: Mathew Desai Consult Reason/Comments: Pleural effusion Do you want consulting provider notified?: Already Contacted 10/08/24 08:00 Consult Physician Routine Consulting Provider: Jim Nash Consult Reason/Comments: Pleurx catheter Do you want consulting provider notified?: Yes Primary care physician: Ruddy Real [facility] Course: Chief Complaint: Short of breath 49-year-old patient who follows with Dr. Ruddy Real. Chronic stable medical conditions include fibromyalgia, rheumatoid arthritis, endometriosis, anxiety depression, hypertension, GERD. Around August 2024 at [facility] for alcohol rehab. Last drink August 2024 does vaping and also's cigarette smoking. August patient underwent bronchoscopy by Dr. SANTOS from pulmonary. Results are nonspecific. Malignancy could not be ruled out. Was admitted to the hospital here beginning of September.: When short of breath cough sputum. Thoracentesis showed metastatic non-small cell carcinoma having features compatible with pulmonary adenocarcinoma. Was discharged on 4 L of oxygen. So Dr. Santos outpatient was dropped to [address] Serrato from oncology was given different options including chemotherapy. Patient now presents with increasing shortness of breath. Cough sputum predominantly clear with significant amount. Does break out in a sweat. No fever no chills. Appetite is fair. No change in bowel pattern. Presented through the ER. October 09: Remains short of breath. Possibly Pleurx catheter to be placed by cardiothoracic team tomorrow. Continue bronchodilators. Eating fair. October 10: Seen this morning. Pending Pleurx catheter placement this afternoon. Shortness of breath present. No other issues. October 11: Pleurx catheter was placed yesterday. Patient's worked up to evacuate system yesterday. This is discontinued this morning. Patient currently on 5 L of oxygen. Some improvement in breathing. Plan is to the patient discharge tomorrow and patient will go for a bone scan as outpatient. October 12: Patient was cleared by pulmonary this morning for discharge. 5 L of oxygen. Outpatient bone scan and PET scan. Follow-up with oncology pulmonary outpatient. Again reminded about non-smoking. Patient to follow-up with Dr. Arterio and oncologist outpatient. Social history: . Lives with her mother. Significant alcohol r intake in August 2024 admitted [facility]. Does vaping also smoke up to half a pack a day for many years Physical examination: VITAL SIGNS: 97.9, 100, 22, 100/66, 95% on 5 L General: . Short of breath. Anxious this EYES: Pupils equal. Conjunctiva alyce l. HEENT: External appearance of nose and ears normal, oral cavity grossly normal. NECK: JVD not raised; masses not palpable. HEART: First and second heart sounds are normal; no edema. LUNGS: Respiratory rate increased, diminished breath sound on left side,. Pleurx catheter-left side ABDOMEN: Soft, nontender, liver spleen not palpable, no masses palpable. PSYCH: Alert and oriented x3; mood and affect anxious INVESTIGATIONS, reviewed in the clinical context: Procalcitonin 0.06 October 07: White count 16.9 hemoglobin 16.3 platelets 25 sodium 135 potassium 4.3 creatinine 0.67 proBNP 88 troponin I less than 0.012 Chest x-ray film personally reviewed by me-large left pleural effusion. Scattered bilateral infiltrates September 2024: Pleural fluid cytology: Non-small cell adenocarcinoma CT angio chest [August 26, 2024]: More than 50 nodules throughout the lungs. Left upper lung masslike consolidation. 58 x 32 mm. Some nodules of central cavitation. Lymphadenopathy. Negative for PE Assessment plan: -Acute hypoxic respiratory failure combination of worsening COPD and increasing left pleural effusion secondary to carcinoma: Not improving Current oxygen 5 L -Acute COPD exacerbation in a smoker.: Better Nebulized Pulmicort DuoNeb 4 times daily Symbicort. -Recurrent large pleural effusion secondary to adenocarcinoma. Left thoracentesis done September 28: Dr. Willson. Will require repeat thoracentesis/Pleurx catheter due to rapid accumulation Cardiothoracic team following Left-sided Pleurx catheter placed October 10. -Chronic hypoxic respiratory failure secondary to COPD Home oxygen 3 L -Left upper lobe consolidation and multiple lung nodules. Adenocarcinoma.. Being followed by Dr. Serrato from oncology. Different options were discussed outpatient recently. -Doubt pneumonia. No antibiotics. Pulmonary following -Essential hypertension Catapres. -Chronic nicotine dependence plus vaping Nicotine patch 14 -Anxiety depression, anxiety Trazodone. Wellbutrin XL Atarax 25 mg every 8 as needed for anxiety -Full code Disposition: Home Past Medical History Past Medical History: Cancer, Heart Failure, Fibromyalgia, Rheumatoid Arthritis (RA) Additional Past Medical History / Comment(s): endometriosis, stage 4 lung cancer History of Any Multi-Drug Resistant Organisms: None Reported Past Surgical History: Section, Hernia Repair, Tubal Ligation Additional Past Surgical History / Comment(s): laproscopy Past Anesthesia/Blood Transfusion Reactions: No Reported Reaction Past Psychological History: Anxiety, Depression Smoking Status: Current every day smoker, Vaper Past Alcohol Use History: Abuse, Daily Additional Past Alcohol Use History / Comment(s): CAN USUALLY GO THREE TO 5 DAYS WITH OUT ALCOHOL Past Drug Use History: None Reported Plan - Discharge Summary Discharge Rx Participant: Yes New Discharge Prescriptions: New Acetaminophen Tab [Tylenol] 500 mg PO Q6HR PRN tab PRN Reason: Mild Pain Or Fever > 100.5 Continue cloNIDine HCL 0.1 mg PO BID Budesonide/Formoterol Fumarate [Symbicort 160-4.5 Mcg Inhaler] 1 puff INHALATION RT-BID predniSONE 10 mg PO DAILY #30 tab hydrOXYzine pamoate [Vistaril] 25 mg PO TID PRN #30 cap PRN Reason: Anxiety Sennosides/Docusate Sodium [Senna Plus 8.6-50 mg Softgel] 1 tab PO BID PRN PRN Reason: Constipation Pantoprazole [Protonix] 40 mg PO DAILY Linaclotide [Linzess] 290 mcg PO DAILY Fluticasone Nasal Baird [Flonase Nasal Baird] 1 spray EA NOSTRIL DAILY Naproxen [Naprosyn] 250 mg PO Q8H PRN #30 tab PRN Reason: Pain buPROPion XL [Wellbutrin XL] 150 mg PO DAILY Ipratropium-Albuterol Nebulize [Duoneb 0.5 mg-3 mg/3 ml Soln] 3 ml INHALATION RT-QID Nicotine 21Mg/24Hr Patch [Habitrol] 1 patch TRANSDERM DIRECTED #30 patch Changed guaiFENesin [Mucinex] 1,200 mg PO Q12H PRN #50 tab PRN Reason: Congestion Discontinued Potassium Chloride ER [K-Dur 10] 10 meq PO DAILY Nicotine 14Mg/24Hr Patch [Habitrol] 1 patch TRANSDERM DIRECTED Furosemide [Lasix] 20 mg PO DAILY Discharge Medication List Fluticasone Nasal Baird [Flonase Nasal Baird] 1 spray EA NOSTRIL DAILY 12/06/24 [History] Linaclotide [Linzess] 290 mcg PO DAILY 08/26/24 [History] Pantoprazole [Protonix] 40 mg PO DAILY 08/26/24 [History] Sennosides/Docusate Sodium [Senna Plus 8.6-50 mg Softgel] 1 tab PO BID PRN 08/26/24 [History] cloNIDine HCL 0.1 mg PO BID 08/26/24 [History] Budesonide/Formoterol Fumarate [Symbicort 160-4.5 Mcg Inhaler] 1 puff INHALATION RT-BID 09/27/24 [History] Naproxen [Naprosyn] 250 mg PO Q8H PRN #30 tab 09/30/24 [Rx] hydrOXYzine pamoate [Vistaril] 25 mg PO TID PRN #30 cap 09/30/24 [Rx] predniSONE 10 mg PO DAILY #30 tab 09/30/24 [Rx] Ipratropium-Albuterol Nebulize [Duoneb 0.5 mg-3 mg/3 ml Soln] 3 ml INHALATION RT-QID 10/07/24 [History] buPROPion XL [Wellbutrin XL] 150 mg PO DAILY 10/07/24 [History] Acetaminophen Tab [Tylenol] 500 mg PO Q6HR PRN tab 10/11/24 [Rx] Nicotine 21Mg/24Hr Patch [Habitrol] 1 patch TRANSDERM DIRECTED #30 patch 10/11/24 [Rx] guaiFENesin [Mucinex] 1,200 mg PO Q12H PRN #50 tab 10/11/24 [Rx] Follow up Appointment(s)/Referral(s): Brian Serrato [STAFF PHYSICIAN] - 10/20/24 4:30 pm Ruddy Real MD [Primary Care Provider] - 10/31/24 1:30 pm (This is the first available appointment. ) [facility], [NON-STAFF] - As Needed ([facility] will make contact after discharge to schedule maximo in home contact) Patient Instructions/Handouts: Decongestant/Expectorant (By mouth), Nicotine (Absorbed through the skin), Pleural Effusion (DC), How to Care for Your Chest or Abdominal Catheter (DC), Thoracentesis (DC) Activity/Diet/Wound Care/Special Instructions: PLEURX discharge instructions: 1. Home Care is ordered, they will obtain new bottles. 2. May shower after 24 hours, no tub baths/hot tubs. 3. Do not drain more than 1 liter or 1000 mL in 24 hours. 4. New drainage bottle needed with each drainage. 5. Drainage frequency dictated by patient symptoms, may be every day, every other day, weekly, or however often the patient is symptomatic. 6. Please notify [facility] or office if temperature >101F, excessive pain at insertion site, drainage consistency changes to cloudy or smells bad, catheter falls out, or anything else that concerns you. 7. Contact surgery office with weekly drainage amounts. May fax the amounts. 8. Once drainage is less than 50 mL three times in a row, notify the surgery office for possible removal. Surgery office: , fax Order for pleurex supplies sent to [employer] ([phone]) . Discharge Disposition: HOME WITH HOME HEALTH SERVICES
== END 2024-10-12 12:15 | disposition home health service (06) | DRG 136 ==
LOC: EC 15:11 → 5NMEDONC 21:54 → OBSVTOIN 21:55 → 5NMEDONC 23:44
PROVIDERS: ADMIT Hospitalist; ATTEND Hospitalist
PROC: 0WHB33Z Insertion of Infusion Device into Left Pleural Cavity, Percutaneous Approach (ICD-10-PCS; principal; 2024-10-10 10:05)
DX: C34.90 Malignant neoplasm of unspecified part of unspecified bronchus or lung (principal); C79.9 Secondary malignant neoplasm of unspecified site; J91.0 Malignant pleural effusion; F17.210 Nicotine dependence, cigarettes, uncomplicated; F10.11 Alcohol abuse, in remission; Z71.6 Tobacco abuse counseling; F32.A Depression, unspecified; F41.9 Anxiety disorder, unspecified; I11.0 Hypertensive heart disease with heart failure; I50.9 Heart failure, unspecified; J44.9 Chronic obstructive pulmonary disease, unspecified; J98.11 Atelectasis; J96.21 Acute and chronic respiratory failure with hypoxia; R59.0 Localized enlarged lymph nodes; K21.9 Gastro-esophageal reflux disease without esophagitis; M06.9 Rheumatoid arthritis, unspecified; M79.7 Fibromyalgia; N80.9 Endometriosis, unspecified; Z99.81 Dependence on supplemental oxygen; Z79.51 Long term (current) use of inhaled steroids; Z79.899 Other long term (current) drug therapy; Z63.5 Disruption of family by separation and divorce; Z91.040 Latex allergy status
CPT/HCPCS: 36415; 71045; 71046; 76604; 77001; 80053; 81001; 81025; 83605; 83880; 84145; 84484; 85025; 85610; 85730; 87040; 87070; 87636; 93005; 94640; 94760; 96365; 96367; 96375; 99285

== ENCOUNTER → 2024-10-13 | Outpatient (CLI) | payer OTHER ==
--- NOTE | 2024-10-16 14:42 | PE ---
EXAMINATION TYPE: PET CT fusion skull to thigh DATE OF EXAM: 10/13/2024 COMPARISON: Chest CT 09/27/2024 Prior PET/CT: No prior PET/CT at this location. CLINICAL INDICATION: Female, 49 years old with history of R91.8 LUNG NODULE, TECHNIQUE: Following the intravenous administration of 9.8 mCi of F-18 FDG, whole body images are pe rformed from the skull base to the midthigh. Images are reviewed on the computer in the coronal, axi al, and sagittal planes. Reconstructed rotating images are created on independent workstation and re viewed on the computer. A localization and attenuation correction CT is performed in conjunction wi th the PET scan. DLP: 308.52 mGycm SCAN: Initial Blood glucose: 107 mg/dL Average Mediastinum SUV: 124 Average Liver SUV: 2.36 FINDINGS: NECK: No abnormal uptake THORAX: Right superior mediastinal uptake is present, image 59, SUV 4.84. There is extensive punctate areas of hyperintensity within left pleural margins. Some intense. A hilar uptake is on the left, ex ample image 82, SUV 8.54. Some mild scattered punctate areas of uptake are within the right hilar reg ion. Multiple scattered punctate peripheral nodules are also identified bilaterally. There is an ante rior pleural margin nodule noted in the hyperintense, image 88, SUV 14.84. Subcarinal lymphadenopathy is present image 88, this is the 8.96. Intense uptake is within the left infrahilar region. ABDOMEN: Periaortic and pericaval uptake is present, example image 144, SUV 11.69 on the right and SOUSA V 11.26 on the left. PELVIS: No abnormal uptake OSSEOUS STRUCTURES: Focus of radiotracer is within the left glenoid, image 55, SUV 11.06. 2 foci of u ptake are within the right scapular tip, example image 86, SUV 4.62 Radiotracer is within the right a nterior lateral L5 vertebral body measuring SUV 13.68. Uptake is along the superior endplate L3. Some scattered thoracic uptake is likely present as well. Lateral right sacral alar uptake is present evangelina ge 185, SUV 12.52. There is a focus radiotracer within the anterior left ilium, image 185 the menisci 8.09. Posterior sacral uptake is present, image 190, series 11.05. Bilateral medial posterior iliac uptake is present. Mid left iliac uptake is present, image 193. There is some uptake at the anterior column right hip. Some uptake is within the left femoral neck and proximal left femur LOCALIZATION CT: Small to moderate bilateral pleural effusions are present. COMPARISON: Findings correlate with the recent CTA chest. IMPRESSION: 1. Extensive bilateral lung densities and pleural uptake. Hilar uptake is present bilaterally. Medias tinal uptake is present. 2. Osseous metastasis noted within the right and left scapula and within the pelvis sacrum and lower lumbar and scattered thoracic vertebral bodies. [facility], , 10/16/2024 2:40 PM
== END | disposition home or self-care (01) ==
LOC: RADPETMAIN 14:01
PROVIDERS: ATTEND Internal Medicine Critical Care Medicine
DX: R91.8 Other nonspecific abnormal finding of lung field (principal); J98.4 Other disorders of lung; C79.51 Secondary malignant neoplasm of bone
CPT/HCPCS: 78815; A9552

== ENCOUNTER → 2024-12-07 | Outpatient (CLI) | payer OTHER ==
[2024-12-07 12:03] LABS: African American GFR (CKD) >90 (>60 ml/min/1.73 sqM); Blood Urea Nitrogen 8 mg/dL (7-17); Non-African American GFR(CKD) >90 (>60 ml/min/1.73 sqM)
--- NOTE | 2024-12-07 15:50 | CT ---
EXAMINATION TYPE: CT ChestAbdPelvis w con CT DLP: 681.4 mGycm, Automated exposure control for dose reduction was used. DATE OF EXAM: 12/07/2024 1:36 PM COMPARISON: PET/CT 10/13/2024, CTA chest 09/27/2024, 08/26/2024, CT abdomen pelvis 08/27/2024 CLINICAL IND ICATION:Female, 49 years old with history of C34.12 MALIGNANT NEOPLASM OF UPPER LOBE, LEFT BRON; PHH, f/u lung ca Technique: Multiple axial images of the chest, abdomen, and pelvis were obtained following the intrav enous administration of 100 mL Isovue-300. Oral contrast was administered. Two-dimensional coronal an d sagittal reconstructions were obtained. Findings: CHEST: LUNGS/ PLEURA: Decreased trace bilateral pleural effusions with associated atelectasis. Decreased siz e of multiple scattered pulmonary nodules throughout the lungs measuring less than a centimeter. Decr eased size of left upper lobe consolidative opacity from prior exam. Left upper lobe calcified granul phyllis. Pleural catheter identified within the left lung base scattered regions of intralobular septal t hickening. AIRWAY: Patent and unremarkable.. HEART: Size within normal limits.No significant pericardial effusion. No significant coronary artery calcifications. MEDIASTINUM: Decreased size of the spinal and bilateral hilar adenopathy from prior exam with largest lymph node within the subcarinal region measuring up to 1.1 in short axis. Previously measured 2.4 c m. VASCULATURE: No aortic aneurysm. MUSCULOSKELETAL: No acute osseous abnormalities. Subcentimeter sclerotic focus within the inferior st ernum. Subtle sclerotic lesion within the left scapula which demonstrate FDG activity in prior PET/CT . Subtle sclerotic FDG avid lesion within the T8, T11, and T12 vertebral bodies. SOFT TISSUES/LYMPH NODES: Unremarkable. LOWER NECK: No significant findings. ABDOMEN: ABDOMEN LIVER: Unremarkable. Portal venous system is patent. GALLBLADDER AND BILE DUCTS: Unremarkable. PANCREAS: Unremarkable. SPLEEN: Unremarkable. ADRENAL GLANDS: Unremarkable. KIDNEYS AND URETERS: No evidence of hydronephrosis or renal calculus. The kidneys enhance symmetrical ly. Contrast is demonstrated within both collecting systems on the delayed phase. PELVIS BLADDER: Incompletely distended but grossly unremarkable. REPRODUCTIVE: Fibroid changes of the uterus with retroverted appearance and calcified fundal fibroid measuring up to 2.0 cm. ABDOMEN & PELVIS STOMACH AND BOWEL: Stomach and duodenum are unremarkable. Moderate amount of stool is present through out the colon. Enteric contrast reaches the ascending colon. No focal bowel wall thickening or surrou nding inflammatory changes. No evidence of bowel obstruction. PERITONEUM: No evidence of pneumoperitoneum or free fluid. VASCULATURE: No evidence of aortic aneurysm. Pelvic phleboliths. MUSCULOSKELETAL: No acute osseous abnormalities. Subtle sclerotic FDG avid lesions involving the L1, L2, L3, and L4 vertebral bodies with additional involvement of the sacrum, left proximal femur, and b ilateral iliac bones. LYMPH NODES: Similar size of posterior pericaval lymph node measuring up to 2.0 cm which demonstrate FDG activity in prior PET/CT. Decreased size of left para-aortic lymph node which demonstrate FDG act ivity in now measuring 1.1 cm, previously measured 1.6 cm. No new adenopathy. SOFT TISSUE/ABDOMINAL WALL: Anterior wall subcutaneous tissues stranding changes likely related to me dication injection. IMPRESSION: 1. Positive response to therapy with decreased size of pulmonary nodules and adenopathy from prior e xam. 2. Redemonstration of scattered osseous metastasis. No new definitive metastasis however nuclear med icine bone scan is more sensitive. 3. Decreased now trace bilateral pleural effusions with interlobular septal thickening suggesting po ssible volume overload. 4. Fibroid changes of the uterus. [facility], , 12/07/2024 3:48 PM
== END | disposition home or self-care (01) ==
LOC: RADCTMAIN 11:28
PROVIDERS: ATTEND Internal Medicine Hematology & Oncology
DX: C34.12 Malignant neoplasm of upper lobe, left bronchus or lung (principal); G89.3 Neoplasm related pain (acute) (chronic); F06.4 Anxiety disorder due to known physiological condition; J91.0 Malignant pleural effusion; R91.1 Solitary pulmonary nodule; D25.9 Leiomyoma of uterus, unspecified; C79.51 Secondary malignant neoplasm of bone
CPT/HCPCS: 82565; 84520; 71260; 74177; 36415; Q9967